=== PATIENT | male | born 1955 | race African-American/Black ===

== ENCOUNTER 2016-08-02 14:46 | Inpatient (IN) ==
[2016-08-02] MEDS ORDERED: 0.9 % Sodium Chloride 1,000 ML IVC ONE ×2 (14:53→17:07)
[2016-08-02 16:18] LABS: Basophils % 0.2 %; Hematocrit 28.5 % (37.5-50.1); Hemoglobin 9.6 g/dL (12.9-16.9); Lymphocytes # 0.7 K/mcL (0.6-4.6); Lymphocytes % 7.4 %; Mean Corpuscular HGB Conc 33.7 g/dL (31.6-35.5); Mean Corpuscular Hemoglobin 28.2 pg (28.0-33.3); Mean Corpuscular Volume 83.6 fL (83.0-100.0); Mean Platelet Volume 9.2 fL (9.4-12.4); Monocytes # 0.9 K/mcL (0.0-1.3); Monocytes % 10.3 %; Neutrophils # 7.3 K/mcL (1.6-8.9); Platelet Count 192 K/mcL (140-400); Red Blood Count 3.41 M/mcL (4.19-5.50); Red Cell Distribution Width 11.9 % (11.5-14.5); Segmented Neutrophils % 81.1 %
[2016-08-02 16:25] LABS: INR 1.2; Prothrombin Time 13.5 Seconds (9.4-12.1)
[2016-08-02 16:27] LABS: Activated Partial Thrombo Time 27.7 Seconds (26.0-36.0)
[2016-08-02 16:31] LABS: Alanine Aminotransferase 34 Units/L (0-55); Albumin 2.9 g/dL (3.5-5.0); Albumin/Globulin Ratio 0.6 (1.1-2.2); Alkaline Phosphatase 69 Units/L (38-126); Aspartate Amino Transferase 50 Units/L (5-34); BUN/Creatinine Ratio 25 (6-26); Bilirubin,Direct 0.8 mg/dL (0.0-0.5); Bilirubin,Indirect 0.5 mg/dL (0.0-1.2); Bilirubin,Total 1.3 mg/dL (0.2-1.2); Blood Urea Nitrogen 32 mg/dL (8-26); Calcium 8.9 mg/dL (8.6-10.8); Carbon Dioxide 21 mEq/L (19-29); Chloride 89 mEq/L (98-109); Globulin 4.9 g/dL (2.4-3.5); Glucose 324 mg/dL (70-99); Magnesium 2.1 mg/dL (1.6-2.6); Osmolality,Calculated 279 (280-300); Phosphorous 2.2 mg/dL (2.3-4.7); Potassium 3.7 mEq/L (3.5-4.5); Sodium 125 mEq/L (136-145); Total Protein 7.8 g/dL (6.0-8.3); eGFR For African Americans > 60 (> 60); eGFR For Non-African Americans 56 (> 60)
[2016-08-02 16:47] LABS: Dohle Bodies Present (Not Present)
[2016-08-02] MEDS ORDERED: Insulin LISPRO 300 UNITS/3 ML VIAL SQ STA (17:05)
--- NOTE | 2016-08-02 17:06 | Emergency Department Note ---
Disposition Clinical Impression: Cellulitis of both feet Syncope Qualifiers: Syncope type: vasovagal syncope Qualified Code(s): R55 - Syncope and collapse Uncontrolled diabetes mellitus Qualifiers: Diabetes mellitus type: other specified (including DORA) Diabetes mellitus complication status: with unspecified complications Diabetes mellitus fdc insulin use: unspecified rat exterminator insulin use status Qualified Code(s): E13.8 - Other specified diabetes mellitus with unspecified complications Disposition: Admitted As Inpatient Referrals: NO,PCP [Primary Care Provider] - Forms: ED Satisfaction Letter Syncope HPI - General Chief Complaint: ED Syncope Stated Complaint: syncope Time Seen by Provider: 08/02/16 14:52 Source: EMS Limitations: physical limitation Nursing Notes Reviewed: Yes Vital Signs Reviewed: Yes - History of Present Illness HPI Narrative: Patient is a 60-year-old male who is currently homeless was found on the neighbor's porch unconscious. The squad came to appear to be sleeping very disheveled when he comes in here today he states he is hungry but no real acute complaints. Witnessed: no History: seizure disorder Treatments prior to arrival: none Associated trauma secondary to event: No - Related Data Home Medications Medication Instructions Recorded Confirmed No Known Home Drugs 08/02/16 08/02/16 Allergies Allergy/AdvReac Type Severity Reaction Status Date / Time No Known Allergies Allergy Verified 08/02/16 14:50 All systems ED: reviewed and negative except as stated. Constitutional: Reports: weakness. Denies: fever, chills Gastrointestinal: Denies: abdominal pain, nausea, vomiting Past Medical History - Past Medical History Source: patient, old records reviewed, nursing notes reviewed Medical history: Reports: arthritis, diabetes, GERD, hepatitis, osteoporosis, seizures, syncope, other Surgical history: Reports: no surgical history, other Psychiatric history: Reports: anxiety, depression - Social History Smoking Status: Current every day smoker Smokeless Tobacco Status: No Alcohol use: Reports: heavy, recent Drug use: Reports: cocaine, marijuana Physical Exam - General Limitations: physical limitation General appearance: alert, in no apparent distress - Head Head exam: atraumatic, normocephalic, normal inspection - Eye Eye exam: Present: normal appearance, PERRL, EOMI - ENT ENT exam: normal exam, normal oropharynx, mucous membranes moist - Neck Neck exam: Present: normal inspection, full ROM, trachea midline - Chest Chest inspection: Present: normal inspection, symmetric chest wall rise - Cardiovascular Cardiovascular exam: Present: regular rate, normal rhythm, normal heart sounds - Abdominal Exam Abdominal exam: Present: soft, Non-Tender. Absent: tenderness, distention, guarding, rebound, rigidity - Expanded Lower Extremity Exam Foot/toe exam: Present: other (Has sloughing of the skin bilaterally feet with maggots his socks had to be soaked and removed and some warmth of his lower tib- fib) Neurovascular/Tendon exam: Present: normal capillary refill - Neurological Exam Neurological exam: Present: alert, oriented X3 - Psychiatric Psychiatric exam: Present: normal affect, normal mood Course Vital Signs Temperature 99.2 F 08/02/16 14:53 Pulse Rate 92 08/02/16 14:53 Respiratory Rate 17 08/02/16 14:53 Blood Pressure 108/80 08/02/16 14:53 O2 Sat by Pulse Oximetry 99 08/02/16 14:53 Temperature 99.2 F 08/02/16 14:53 Pulse Rate 93 08/02/16 17:52 Respiratory Rate 17 08/02/16 17:22 Blood Pressure 98/68 08/02/16 17:52 O2 Sat by Pulse Oximetry 98 08/02/16 17:52 Oxygen Delivery Oxygen Delivery Room Air Syncope - MDM Narrative Medical decision making narrative: transportation worker was involved patient was showered his feet were soaked bilateral lower extremity wounds were bandaged patient agrees to usp placement after hospital admission - Differential Diagnosis Likely: syncope due to orthostatic hypotension, vasovagal syncope, complete atrioventricular block, pulmonary embolism - Medical Records Medical records reviewed: Yes I reviewed the patient's medical records. - Lab Data Lab results reviewed: Yes I reviewed the patient's lab results. Result diagrams: 08/02/16 16:14 08/02/16 16:14 Lab Results 08/02/16 08/02/16 08/02/16 Range/Units 16:14 16:14 16:14 WBC 9.0 (4.3-11.1) K/mcL RBC 3.41 L (4.19-5.50) M/mcL Hgb 9.6 L (12.9-16.9) g/dL Hct 28.5 L (37.5-50.1) % MCV 83.6 (83.0-100.0) fL MCH 28.2 (28.0-33.3) pg MCHC 33.7 (31.6-35.5) g/dL RDW 11.9 (11.5-14.5) % Plt Count 192 (140-400) K/mcL MPV 9.2 L (9.4-12.4) fL Immature Gran % 1.0 (0-4) % Seg Neutrophils % 81.1 % Lymphocytes % 7.4 % Monocytes % 10.3 % Eosinophils % 0.0 % Basophils % 0.2 % Neutrophils # 7.3 (1.6-8.9) K/mcL Lymphocytes # 0.7 (0.6-4.6) K/mcL Monocytes # 0.9 (0.0-1.3) K/mcL Eosinophils # 0.0 (0.0-0.6) K/mcL Basophils # 0.0 (0.0-0.2) K/mcL Dohle Bodies Present A (Not Present) PT 13.5 H (9.4-12.1) Seconds INR 1.2 APTT 27.7 (26.0-36.0) Seconds Sodium 125 L (136-145) mEq/L Potassium 3.7 (3.5-4.5) mEq/L Chloride 89 L (98-109) mEq/L Carbon Dioxide 21 (19-29) mEq/L BUN 32 H (8-26) mg/dL Creatinine 1.30 H (0.72-1.25) mg/dL Est GFR ( Amer) > 60 (> 60) Est GFR (Non-Af Amer) 56 L (> 60) BUN/Creatinine Ratio 25 (6-26) Glucose 324 H (70-99) mg/dL Est Mean Plasma Glucose mg/dl Hemoglobin A1c ( - 5.6) % Calculated Osmolality 279 L (280-300) Lactic Acid (0.5-2.2) mmol/L Calcium 8.9 (8.6-10.8) mg/dL Phosphorus 2.2 L (2.3-4.7) mg/dL Magnesium 2.1 (1.6-2.6) mg/dL Total Bilirubin 1.3 H (0.2-1.2) mg/dL Direct Bilirubin 0.8 H (0.0-0.5) mg/dL Indirect Bilirubin 0.5 (0.0-1.2) mg/dL AST 50 H (5-34) Units/L ALT 34 (0-55) Units/L Alkaline Phosphatase 69 (38-126) Units/L Troponin I (0-0.03) ng/mL Serum Total Protein 7.8 (6.0-8.3) g/dL Albumin 2.9 L (3.5-5.0) g/dL Globulin 4.9 H (2.4-3.5) g/dL Albumin/Globulin Ratio 0.6 L (1.1-2.2) Ethyl Alcohol (0-10) mg/dL 08/02/16 08/02/16 08/02/16 Range/Units 16:14 16:14 16:14 WBC (4.3-11.1) K/mcL RBC (4.19-5.50) M/mcL Hgb (12.9-16.9) g/dL Hct (37.5-50.1) % MCV (83.0-100.0) fL MCH (28.0-33.3) pg MCHC (31.6-35.5) g/dL RDW (11.5-14.5) % Plt Count (140-400) K/mcL MPV (9.4-12.4) fL Immature Gran % (0-4) % Seg Neutrophils % % Lymphocytes % % Monocytes % % Eosinophils % % Basophils % % Neutrophils # (1.6-8.9) K/mcL Lymphocytes # (0.6-4.6) K/mcL Monocytes # (0.0-1.3) K/mcL Eosinophils # (0.0-0.6) K/mcL Basophils # (0.0-0.2) K/mcL Dohle Bodies (Not Present) PT (9.4-12.1) Seconds INR APTT (26.0-36.0) Seconds Sodium (136-145) mEq/L Potassium (3.5-4.5) mEq/L Chloride (98-109) mEq/L Carbon Dioxide (19-29) mEq/L BUN (8-26) mg/dL Creatinine (0.72-1.25) mg/dL Est GFR ( Amer) (> 60) Est GFR (Non-Af Amer) (> 60) BUN/Creatinine Ratio (6-26) Glucose (70-99) mg/dL Est Mean Plasma Glucose mg/dl Hemoglobin A1c ( - 5.6) % Calculated Osmolality (280-300) Lactic Acid 1.1 (0.5-2.2) mmol/L Calcium (8.6-10.8) mg/dL Phosphorus (2.3-4.7) mg/dL Magnesium (1.6-2.6) mg/dL Total Bilirubin (0.2-1.2) mg/dL Direct Bilirubin (0.0-0.5) mg/dL Indirect Bilirubin (0.0-1.2) mg/dL AST (5-34) Units/L ALT (0-55) Units/L Alkaline Phosphatase (38-126) Units/L Troponin I 0.00 (0-0.03) ng/mL Serum Total Protein (6.0-8.3) g/dL Albumin (3.5-5.0) g/dL Globulin (2.4-3.5) g/dL Albumin/Globulin Ratio (1.1-2.2) Ethyl Alcohol < 10 (0-10) mg/dL 08/02/16 Range/Units 16:14 WBC (4.3-11.1) K/mcL RBC (4.19-5.50) M/mcL Hgb (12.9-16.9) g/dL Hct (37.5-50.1) % MCV (83.0-100.0) fL MCH (28.0-33.3) pg MCHC (31.6-35.5) g/dL RDW (11.5-14.5) % Plt Count (140-400) K/mcL MPV (9.4-12.4) fL Immature Gran % (0-4) % Seg Neutrophils % % Lymphocytes % % Monocytes % % Eosinophils % % Basophils % % Neutrophils # (1.6-8.9) K/mcL Lymphocytes # (0.6-4.6) K/mcL Monocytes # (0.0-1.3) K/mcL Eosinophils # (0.0-0.6) K/mcL Basophils # (0.0-0.2) K/mcL Dohle Bodies (Not Present) PT (9.4-12.1) Seconds INR APTT (26.0-36.0) Seconds Sodium (136-145) mEq/L Potassium (3.5-4.5) mEq/L Chloride (98-109) mEq/L Carbon Dioxide (19-29) mEq/L BUN (8-26) mg/dL Creatinine (0.72-1.25) mg/dL Est GFR ( Amer) (> 60) Est GFR (Non-Af Amer) (> 60) BUN/Creatinine Ratio (6-26) Glucose (70-99) mg/dL Est Mean Plasma Glucose > 355 mg/dl Hemoglobin A1c >= 14.1 H ( - 5.6) % Calculated Osmolality (280-300) Lactic Acid (0.5-2.2) mmol/L Calcium (8.6-10.8) mg/dL Phosphorus (2.3-4.7) mg/dL Magnesium (1.6-2.6) mg/dL Total Bilirubin (0.2-1.2) mg/dL Direct Bilirubin (0.0-0.5) mg/dL Indirect Bilirubin (0.0-1.2) mg/dL AST (5-34) Units/L ALT (0-55) Units/L Alkaline Phosphatase (38-126) Units/L Troponin I (0-0.03) ng/mL Serum Total Protein (6.0-8.3) g/dL Albumin (3.5-5.0) g/dL Globulin (2.4-3.5) g/dL Albumin/Globulin Ratio (1.1-2.2) Ethyl Alcohol (0-10) mg/dL - Radiology Data Radiology results reviewed: Yes I reviewed the patient's radiology results.
[2016-08-02 17:09] LABS: Estimated Average Glucose > 355 mg/dl; Hemoglobin A1C >= 14.1 %
[2016-08-02] MEDS ORDERED: Clindamycin 600 MG/50 ML 600 MG/50 ML IV.SOLN IVPB STA (17:34)
[2016-08-02 19:15] LABS: Bilirubin,Urine Small (Negative); Blood,Urine Negative (Negative); Clarity,Urine Cloudy (Clear); Color,Urine Yellow (Yellow); Glucose,Urine (UA) >=1000 mg/dL (Normal); Ketones,Urine 15 mg/dL (Negative); Leukocyte Esterase,Urine Negative (Negative); Nitrite,Urine Negative (Negative); Protein,Urine 30 mg/dL (Neg-Trace); Specific Gravity,Urine 1.028 (1.010-1.025); Urobilinogen,Urine Normal (Normal)
[2016-08-02 19:17] LABS: Bacteria,Urine Few per hpf (None-Few); Hyaline Casts,Urine None Seen per lpf (None-Few); RBC,Urine 0-3 per hpf (0-3); Squamous Epithelial Cell,Urine Many per lpf (None-Few); WBC,Urine 0-3 per hpf (0-3)
[2016-08-02 19:23] LABS: Amphetamine Screen,Urine Negative ng/mL (Cutoff=1000); Barbiturate Screen,Urine Negative ng/mL (Cutoff=200); Benzodiazepines Screen,Urine Negative ng/mL (Cutoff=200); Cannabinoid Screen,Urine Positive ng/mL (Cutoff = 50); Cocaine Screen,Urine Positive ng/mL (Cutoff= 300); Opiate Screen,Urine Negative ng/mL (Cutoff=300); Phencyclidine Screen,Urine Negative ng/mL (Cutoff=25)
[2016-08-02] MEDS ORDERED: Naloxone 0.4 MG/ML INJ IVP PRN (20:55)
[2016-08-02] MEDS ORDERED: Ondansetron 4 MG/2 ML VIAL IVP PRN (20:55)
[2016-08-02] MEDS ORDERED: *HR* LORazepam 2 MG/ML VIAL IVP PRN (21:02)
[2016-08-02] MEDS ORDERED: D5% in Water 1,000 ML IVC PRN (21:03)
[2016-08-02] MEDS ORDERED: *HR* Dextrose 50 % in Water (Syg) 50 ML SYRINGE IVP PRN (21:03)
[2016-08-02] MEDS ORDERED: Dextrose Gel 15 GM PO PRN ×2 (21:03)
--- NOTE | 2016-08-02 21:08 | Internal Med History&Physical ---
Date of Encounter: 08/02/16 Time of Encounter: 20:30 Assessment and Plan (1) Cellulitis of both feet Current visit: Yes Status: Acute Patient does have skin sloughing with mild surrounding cellulitis B/L feet. He has h/o- MRSA in urine, blood last year; will start IV Doxycycline; received Clindamycin in ER, he may be at risk for c.diff infection due to malnutrition, chronic diarrhea. F/up blood cultures. Local wound care with Adaptic and Kerlix covering for now; wound care consult. (2) Fever Current visit: Yes Status: Acute could be due to underlying cellulitis. Does not have any symptoms or signs of alcohol withdrawal. UA not suggestive of UTI. Will get chest XRay to r/o aspiration Pneumonia due to h/o- alcoholism. F/up blood cultures, continue IV hydration, antibiotics. Lactic acid WNL. Tylenol PRN. Supportive care. Qualifiers: Fever type: unspecified Qualified Code(s): R50.9 - Fever, unspecified (3) APRIL (acute kidney injury) Current visit: Yes Status: Acute likely dehydration due to malnutrition and poor brendon intake; continue IV hydration and monitor serum creatinine closely; avoid nephrotoxic agents. (4) Hypophosphatemia Current visit: Yes Status: Acute due to alcohol abuse. Supplement with iV POtassium phosphate and monitor; (5) Hyponatremia Current visit: Yes Status: Acute likely hypovolemic due to dehydration and alcohol abuse. IV hydration with NS and monitor serum sodium and urine output closely. Check TSH; (6) Uncontrolled diabetes mellitus Current visit: Yes Status: Chronic Uncontrolled due to medical noncompliance. HbA1C noted to be >14.1%. Start Accucheck blood glucose monitoring with basal bolus insulin regimen. Diabetic diet. Qualifiers: Diabetes mellitus type: type 2 Diabetes mellitus complication status: with hyperglycemia Diabetes mellitus senior living insulin use: without oil heaterman use Qualified Code(s): E11.65 - Type 2 diabetes mellitus with hyperglycemia (7) Malnutrition Current visit: Yes Status: Chronic due to uncontrolled DM, homelessness, alcohol abuse. Ensure supplements. Nutrition consult. (8) Alcoholism /alcohol abuse Current visit: Yes Status: Chronic not in withdrawal at this time. CIWA protocol with PRN IV Ativan. Thiamine and Folate supplements. student services advisor has been consulted for safe discharge and possible placement; PT consult. (9) Polysubstance abuse Current visit: Yes Status: Chronic Urine drug screen positive for cocaine and Marijuana; supportive care. student services advisor consult. (10) Tobacco abuse Current visit: Yes Status: Chronic patient not interested in smoking cessation at this time; refuses Nicotine transdermal patch. (11) Hepatitis C Current visit: Yes Status: Chronic Qualifiers: Viral hepatitis chronicity: chronic Hepatic coma status: without hepatic coma Qualified Code(s): B18.2 - Chronic viral hepatitis C Internal Medicine - H&P: HPI Chief complaint: wounds on both feet, homeless Admitted From: Emergency Dept Plans for Post Hospital Care: Transfer Senior Care Care History of present illness: Mr. Proctor is a 60 year old male with h/o- uncontrolled DM, chronic alcohol, substance abuse, homeless, was brought in by EMS after having been found unconscious on neighbour's porch. Patient was alert and oriented in the ER, reported hunger and no other complaints. He was noted to be very disheveled and unkempt with socks matted to his feet, with maggots and received shower and clean up of his feet wounds. He reports no chest pain, shortness of breath, nausea or vomiting. He does report chronic lower abdominal pain and loose watery nonbloody diarrhea on ROS. He also has numbness in both his feet due to diabetic neuropathy. His last drink of alcohol and last use of Marijuana and Cocaine was yesterday. He is homeless, cannot afford any of his meds including insulin, does not have medical followup. He is agreeable to oil heaterman care placement at this time. Past Med Surg Social Fam HX - Past Medical History Medical history: arthritis, diabetes, GERD, hepatitis, osteoporosis, seizures, syncope, other Psychiatric history: anxiety, depression - Past Surgical History Surgical History: cholecystectomy - Social History Smoking Status: Current every day smoker Packs per day: 0.5 Smokeless Tobacco Status: No Alcohol use: heavy, recent Drug use: cocaine, marijuana Occupational status: unemployed Current living situation: Homeless Activity Level: Independent ambulation Recent Out of Country Travel Within the Last 8 Weeks: No - Family History Mother History Unknown: Yes Adopted: (poor historian) Internal Medicine - H&P: Meds No Known Home Drugs 08/02/16 [History] Allergies No Known Allergies Allergy (Verified 08/02/16 14:50) All Systems PM: A 10-system review of systems was performed and is negative for pertinent findings except as documented above in the HPI. - Constitutional Constitutional: chills, fever(s) - EENT Eyes: no change in vision, no discharge, no pain, no photophobia Ears: no ear discharge, no ear pain, no tinnitus Nose, mouth and throat: no dysphagia, no nasal discharge, no neck pain, no sore throat - Cardiovascular Cardiovascular ROS IM: no chest pain, no diaphoresis, no dyspnea, no lightheadedness, no palpitations, no syncope - Respiratory Respiratory: no cough, no dyspnea, no wheezing, no excessive phlegm production - Gastrointestinal Gastrointestinal: abdominal pain, diarrhea, loose stools - Musculoskeletal Musculoskeletal ROS IM: back pain, no numbness, no tingling - Integumentary Integumentary IM: sores, no rash, no unusual bruising - Neurological Neurological ROS: numbness - Hematologic/Lymphatic Hematologic/Lymphatic: no easy bruising - Constitutional Vitals: Temp Pulse Resp BP Pulse Ox 99.2 F 93 16 98/68 98 08/02/16 14:53 08/02/16 17:52 08/02/16 19:19 08/02/16 19:19 08/02/16 17:52 General appearance: Present: cachectic, A&O X 3, answers questions appropriately - Head Head exam: Present: atraumatic, normocephalic - Neck Neck exam general surgery: Present: supple, trachea midline. Absent: lymphadenopathy - Respiratory Respiratory exam: Present: CTAB. Absent: accessory muscle use, rales, rhonchi, wheezes - Cardiovascular Cardiovascular exam: Present: RRR, +S1, +S2. Absent: diastolic murmur, gallop, rubs, systolic murmur - GI/Abdominal GI/Abdominal exam: Present: normal bowel sounds, soft, no peritoneal signs. Absent: distended, tenderness - Extremities Exam Extremities exam: Present: full ROM, warm, radial pulses palpable and symetrical. Absent: calf tenderness, cyanotic, pedal edema Additional comments: B/L feet with sloughed off skin, slightly foul-smelling, with areas of yellowish exudate; no purulent discharge or deep ulcers; surrounding mild erythema - Neurological Exam Neurological exam: Present: CN II-XII intact, oriented X3, no focal deficits. Absent: pronater drift, facial droop, speech deficit - Skin Skin exam: Present: dry, intact Internal Med - H&P Results - Labs CBC & Chem 7: 08/02/16 16:14 08/02/16 16:14 Labs: Urine 08/02/16 Range/Units 19:05 Urine Color Yellow (Yellow) Urine Clarity Cloudy A (Clear) Urine pH 6.0 (5.0-8.0) pH Units Ur Specific [place] 1.028 H (1.010-1.025) Urine Protein 30 H (Neg-Trace) mg/dL Urine Glucose (UA) >=1000 H (Normal) mg/dL - EKG Data -: EKG Interpreted by Myself EKG shows normal: sinus rhythm Rate: normal
[2016-08-02] MEDS ORDERED: Potassium Phosphate 44 MEQ in 0.9 % Sodium Chloride 250 ML IVPB ONE (22:00)
[2016-08-02] MEDS: 0.9 % Sodium Chloride 1,000 ML IVC SCH (22:36)
[2016-08-02] MEDS: Acetaminophen 325 MG TABLET PO PRN (22:45)
[2016-08-02] MEDS: Insulin DETEMIR 100 UNIT/ML X5UNITS SQ SCH (22:45)
[2016-08-02] MEDS: Insulin LISPRO 300 UNITS/3 ML VIAL SQ SCH (22:54)
[2016-08-03 03:52] LABS: Basophils % 0.1 %; Eosinophils % 0.1 %; Hematocrit 25.5 % (37.5-50.1); Hemoglobin 8.4 g/dL (12.9-16.9); Immature Granulocytes % 0.8 % (0-4); Lymphocytes # 0.9 K/mcL (0.6-4.6); Mean Corpuscular HGB Conc 32.9 g/dL (31.6-35.5); Mean Corpuscular Hemoglobin 27.6 pg (28.0-33.3); Mean Corpuscular Volume 83.9 fL (83.0-100.0); Mean Platelet Volume 9.6 fL (9.4-12.4); Monocytes % 9.8 %; Neutrophils # 8.2 K/mcL (1.6-8.9); Platelet Count 190 K/mcL (140-400); Red Blood Count 3.04 M/mcL (4.19-5.50); Red Cell Distribution Width 11.9 % (11.5-14.5); Segmented Neutrophils % 80.2 %
[2016-08-03 04:07] LABS: BUN/Creatinine Ratio 21 (6-26); Blood Urea Nitrogen 25 mg/dL (8-26); Calcium 7.9 mg/dL (8.6-10.8); Carbon Dioxide 19 mEq/L (19-29); Chloride 102 mEq/L (98-109); Chol/HDL Ratio 4.3 (0-4.9); Cholesterol 120 mg/dL (< 200); Glucose 397 mg/dL (70-99); HDL Cholesterol 28 mg/dL (40-59); LDL Cholesterol,Calculated 71 mg/dL (0-99); Magnesium 1.9 mg/dL (1.6-2.6); Osmolality,Calculated 293 (280-300); Phosphorous 3.3 mg/dL (2.3-4.7); Potassium 3.5 mEq/L (3.5-4.5); Sodium 131 mEq/L (136-145); Triglycerides 106 mg/dL (< 150); eGFR For African Americans > 60 (> 60); eGFR For Non-African Americans > 60 (> 60)
[2016-08-03 04:36] LABS: Dohle Bodies Present (Not Present); Platelet Estimate Normal (Normal)
[2016-08-03] MEDS: *HR* Heparin 5,000 UNIT/ML VIAL SQ SCH ×2 (05:56→17:09)
[2016-08-03] MEDS ORDERED: Doxycycline 100 MG in 0.9 % Sodium Chloride Mini Bag 100 ML IVPB SCH (06:00)
[2016-08-03] MEDS: Acetaminophen 325 MG TABLET PO PRN ×3 (06:01→23:36)
[2016-08-03 07:23] LABS: Adenovirus F 40/41 PCR Not detected (Not detect); Astrovirus PCR Not detected (Not detect); C.difficile Toxin A/B by PCR Not detected (Not detect); Campylobacter by PCR Not detected (Not detect); Cryptosporidium by PCR Not detected (Not detect); Cyclospora cayetanensis PCR Not detected (Not detect); E. coli O157 by PCR Not detected (Not detect); Entamoeba histolytica PCR Not detected (Not detect); Enteroaggregative E.coli(EAEC) Not detected (Not detect); Enteropathogenic E.coli(EPEC) Not detected (Not detect); Enterotoxigenic E.coli (ETEC) Not detected (Not detect); Giardia lamblia PCR Not detected (Not detect); Norovirus GI/GII PCR Not detected (Not detect); Plesiomonas shigelloides PCR Not detected (Not detect); Rotavirus A PCR Not detected (Not detect); Salmonella PCR Not detected (Not detect); Sapovirus PCR Not detected (Not detect); Shig/EnteroinvasiveE coli EIEC Not detected (Not detect); Shigalike tox-prod E coli STEC Not detected (Not detect); Vibrio PCR Not detected (Not detect); Vibrio cholerae PCR Not detected (Not detect); Yersinia enterocolitica PCR Not detected (Not detect)
[2016-08-03] MEDS ORDERED: *HR* LORazepam 2 MG/ML VIAL IVP PRN ×2 (07:56)
[2016-08-03] MEDS: Thiamine (B-1) 100 MG TABLET PO SCH (08:14)
[2016-08-03] MEDS: Insulin LISPRO 300 UNITS/3 ML VIAL SQ SCH ×4 (08:14→21:40)
[2016-08-03] MEDS: Folic Acid 1 MG TABLET PO SCH (08:14)
[2016-08-03] MEDS: Insulin DETEMIR 100 UNIT/ML X5UNITS SQ SCH ×2 (08:14→21:40)
[2016-08-03] MEDS: 0.9 % Sodium Chloride 1,000 ML IVC SCH ×2 (08:15→21:42)
[2016-08-03] MEDS ORDERED: Insulin Human Regular 5 UNIT in 0.9 % Sodium Chloride 10 ML IV ONE (09:26)
[2016-08-03 11:04] LABS: Acinetobacter baumannii by PCR Not Detected (Not Detect); Candida albicans by PCR Not Detected (Not Detect); Candida glabrata by PCR Not Detected (Not Detect); Candida krusei by PCR Not Detected (Not Detect); Candida parapsilosis by PCR Not Detected (Not Detect); Candida tropicalis by PCR Not Detected (Not Detect); Enterococcus by PCR Not Detected (Not Detect); Escherichia coli by PCR Not Detected (Not Detect); Klebsiella oxytoca by PCR Not Detected (Not Detect); Klebsiella pneumoniae by PCR Not Detected (Not Detect); Pseudomonas aeruginosa by PCR Not Detected (Not Detect); Serratia marcescens by PCR Not Detected (Not Detect); Staphylococcus aureus by PCR Not Detected (Not Detect); Streptococcus agalactiae(B)PCR Not Detected (Not Detect); Streptococcus by PCR Not Detected (Not Detect); Streptococcus pneumoniae PCR Not Detected (Not Detect); Streptococcus pyogenes (A) PCR Not Detected (Not Detect); blaKPC Carbapenem-Resist Gene Not Detected (Not Detect); mecA Methicillin-Resist Gene Not Detected (Not Detect); vanA/B Vancomycin-Resist Genes Not Detected (Not Detect)
[2016-08-03] MEDS ORDERED: Vancomycin 750 MG in D5% in Water 250 ML IVPB SCH (12:00)
[2016-08-03] MEDS: Vancomycin 750 MG in D5% in Water 250 ML IVPB SCH (12:14)
--- NOTE | 2016-08-03 15:34 | Internal Med Progress Note ---
Date of Encounter: 08/03/16 Time of Encounter: 11:30 - Assessment and plan (1) Bacteremia Current Visit: Yes Status: Acute Assessment and plan: Gram positive cocci isolated in the blood culture. A second set of blood cultures have been requested, additionally I started the patient on empiric IV vancomycin and up requested an echocardiogram to look for any possible vegetations. We will request ESR and CRP. The patient does not look septic however. We will continue with IV vancomycin at this point, monitor kidney function tests. High risk medication, we need to monitor vancomycin levels accordingly. (2) Peripheral vascular disease Current Visit: Yes Status: Acute Assessment and plan: We will obtain a carotid duplex of lower extremities. The patient has evidence of ulcers in both feet. He also has a history of uncontrolled diabetes and is a long-standing smoker. We will continue monitoring closely. We will give by mouth aspirin and had statins. (3) Alcoholism /alcohol abuse Current Visit: Yes Status: Chronic Assessment and plan: Continue with CIWA protocol. Monitor the patient closely. (4) Hyponatremia Current Visit: No Status: Acute (5) Dehydration Current Visit: No Status: Acute (6) DVT prophylaxis Current Visit: No Status: Acute Assessment and plan: Continue with heparin. (7) Polysubstance abuse Current Visit: Yes Status: Chronic (8) Homeless Current Visit: No Status: Chronic (9) DVT prophylaxis Current Visit: No Status: Acute (10) Diabetes Current Visit: No Status: Chronic Assessment and plan: continue with insulin hb A1C above 14. Qualifiers: Diabetes mellitus type: type 2 Diabetes mellitus complication status: without complication Diabetes mellitus rodent exterminator insulin use: with rodent exterminator use Qualified Code(s): E11.9 - Type 2 diabetes mellitus without complications ; Z79.4 - shelter (current) use of insulin (11) Cellulitis of both feet Current Visit: Yes Status: Acute Assessment and plan: Switched to vancomycin due to bacteremia. (12) Uncontrolled diabetes mellitus Current Visit: Yes Status: Chronic Qualifiers: Diabetes mellitus type: type 2 Diabetes mellitus complication status: with hyperglycemia Diabetes mellitus rodent exterminator insulin use: without rodent exterminator use Qualified Code(s): E11.65 - Type 2 diabetes mellitus with hyperglycemia (13) Malnutrition Current Visit: Yes Status: Chronic (14) Marijuana abuse Current Visit: No Status: Acute (15) Alcohol abuse Current Visit: No Status: Chronic (16) Weakness generalized Current Visit: No Status: Acute Assessment and plan: PT eval. (17) Hepatitis C Current Visit: Yes Status: Chronic Assessment and plan: outpatient follow up. Qualifiers: Viral hepatitis chronicity: chronic Hepatic coma status: without hepatic coma Qualified Code(s): B18.2 - Chronic viral hepatitis C - Subjective Interval history: The patient was seen and examined in rounds. He was alert, awake, oriented. He did not seem to be in respiratory distress during this encounter. He is taking alert awake came here was because of his left ulcers, he denied chest pain. He is homeless. - Constitutional Vitals: Temp Pulse Resp BP Pulse Ox 98.7 F 87 19 98/67 100 08/03/16 11:34 08/03/16 13:23 08/03/16 13:23 08/03/16 13:23 08/03/16 13:23 General appearance: Present: cachectic, A&O X 3, answers questions appropriately - Head Head exam: Present: atraumatic, normocephalic - Eye Eye exam: Present: PERRL, conjuntiva pink, sclera anicteric Pupils: Present: PERRL - Neck Neck exam general surgery: Present: supple, trachea midline. Absent: lymphadenopathy - Respiratory Respiratory exam: Present: CTAB. Absent: accessory muscle use, rales, rhonchi, wheezes - Cardiovascular Cardiovascular exam: Present: RRR, +S1, +S2. Absent: diastolic murmur, gallop, rubs, systolic murmur - GI/Abdominal GI/Abdominal exam: Present: normal bowel sounds, soft, no peritoneal signs. Absent: distended, tenderness - Extremities Exam Extremities exam: Present: warm, radial pulses palpable and symetrical. Absent : calf tenderness, cyanotic, pedal edema - Neurological Exam Neurological exam: Present: CN II-XII intact, oriented X3, no focal deficits. Absent: pronater drift, facial droop, speech deficit - Skin Skin exam: Present: dry Additional comments: Ulcers in both lower extremities, in the anterior aspect of both feet. Covered with dressing. Internal Medicine: Result - Labs CBC & Chem 7: 08/03/16 03:18 08/03/16 03:18 - ABG Interpretation ABG results: PT/INR, D-dimer PT 13.5 Seconds (9.4-12.1) H 08/02/16 16:14 - Impressions Impressions Chest X-Ray 08/03/16 23:33 IMPRESSION: Negative portable chest. D/ / Darrion Connors MD / Darrion Connors MD Interpreting Provider: Darrion Connors MD Consult Discharge Plan - Plan Referrals: NO,PCP [Primary Care Provider] -
--- NOTE | 2016-08-03 16:00 | Electrocardiograph Report ---
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
--- NOTE | 2016-08-03 16:52 | Podiatry Progress Note ---
Date of Encounter: 08/03/16 Time of Encounter: 16:15 - Assessment and Plan (1) Ulcers of both lower extremities Current Visit: Yes Status: Acute Appears to be fungal and in direct relation to matted, wet socks worn for extended period of time NO appearance of bacterial infection or underlying abscess Pulses are palpable Will need tight glucose control and proper nutrition to aide in proper healing Patient will be going to [facility] where they will be able to manage dressing changes At this time, BID dressing changes with thick application of santyl to all areas of fibrous tissue, wet to dry dressings, and kerlex Patient will need to follow up in wound care 1 week after discharge- will need to be followed closely May continue IV antibiotics but no apparent bacterial process to feet (2) Cellulitis of both feet Current Visit: Yes Status: Acute (3) Uncontrolled diabetes mellitus Current Visit: Yes Status: Chronic Qualifiers: Diabetes mellitus type: type 2 Diabetes mellitus complication status: with hyperglycemia Diabetes mellitus senior care insulin use: without adjunct faculty for medical terminology use Qualified Code(s): E11.65 - Type 2 diabetes mellitus with hyperglycemia Subjective Interval history: Mr. Proctor is a 60 year old male with h/o- uncontrolled DM, chronic alcohol, substance abuse, homeless, was brought in by EMS after having been found unconscious on neighbour's porch. Patient noted to have Ha1c 14.1. Upon entering room patient resting comfortably with dressings intact to both feet. Nurse reports multiple changes of dressings due to clear yellow drainage. Patient reports he is unsure when ulcerations occurred to his feet. Patient is homeless, states he owns one pair of socks and have have them on for a very long time, patient arrived to ED where it was reported they were matted to his feet with maggots. Patient reports no pain at this time. patient denies any calf pain. Patient denies any fevers, chills, n/v or flu like symptoms. Objective - Vital Signs Vital Signs: Vital Signs Temp Pulse Resp BP Pulse Ox 08/03/16 15:59 99.6 F 96 17 95/61 100 08/03/16 13:23 87 19 98/67 100 08/03/16 11:34 98.7 F 87 19 98/67 100 Intake and Output 08/03/16 08/03/16 08/03/16 07:59 15:59 23:59 Intake Total 360 / 1720 Balance 360 / 1720 Intake: Oral 360 / 720 Other: Meal Lunch Percent of Meal Consumed 100% Stool Size Large Stool Consistency soft formed Stool Color Brown Green # Voids 1 # Urine Diapers 1 # Bowel Movement Diapers 1 Weight 57.1 kg Blood Glucose* 209 Patient Weight 08/03/16 23:59 Weight 57.1 kg - Exam Exam: General Examination: CONSTITUTIONAL: Alert, oriented, in no acute distress, non-toxic. EXTREMITIES: CFT 3 seconds all toes. Edema +1 and pedal pulses palpable. SKIN: Skin with decreased turgor, decreased subcutaneous tissue, skin thin and shiny with trophic changes associated with comorbidities as described in history.. malnourished, frail NEUROLOGIC: Intact sensation to light touch superficial partial thickness ulcerated area encompassing entire dorsal aspects of feet bilaterally. right and left foot ulceration extends entire circumference of ankle. Right foot: moderate amount of healthy granulation tissue is present- 50%, dry yellow slough is noted in patches to wound, no loose areas are noted for debridement. Left: Less granulation tissue noted- 30% , majority of wound bed is covered with dry fibrous slough. Mild yellow drainage noted. Granulation tissue friable and bleeds easily. Painful to touch. No odor. No warmth, edema or erythema noted.. - Lab Result Diagrams: 08/03/16 03:18 08/03/16 03:18 Labs: Abnormal lab results RBC 3.04 M/mcL (4.19-5.50) L 08/03/16 03:18 Hgb 8.4 g/dL (12.9-16.9) L 08/03/16 03:18 Hct 25.5 % (37.5-50.1) L 08/03/16 03:18 MCH 27.6 pg (28.0-33.3) L 08/03/16 03:18 Dohle Bodies Present (Not Present) A 08/03/16 03:18 ESR 14 mm/hr (0-10) H 08/02/16 18:43 PT 13.5 Seconds (9.4-12.1) H 08/02/16 16:14 Sodium 131 mEq/L (136-145) L 08/03/16 03:18 Glucose 397 mg/dL (70-99) H 08/03/16 03:18 Hemoglobin A1c >= 14.1 % (-5.6) H 08/02/16 16:14 Calcium 7.9 mg/dL (8.6-10.8) L 08/03/16 03:18 Total Bilirubin 1.3 mg/dL (0.2-1.2) H 08/02/16 16:14 Direct Bilirubin 0.8 mg/dL (0.0-0.5) H 08/02/16 16:14 AST 50 Units/L (5-34) H 08/02/16 16:14 Albumin 2.9 g/dL (3.5-5.0) L 08/02/16 16:14 Globulin 4.9 g/dL (2.4-3.5) H 08/02/16 16:14 Albumin/Globulin Ratio 0.6 (1.1-2.2) L 08/02/16 16:14 HDL Cholesterol 28 mg/dL (40-59) L 08/03/16 03:18 Urine Clarity Cloudy (Clear) A 08/02/16 19:05 Ur Specific Gray 1.028 (1.010-1.025) H 08/02/16 19:05 Urine Protein 30 mg/dL (Neg-Trace) H 08/02/16 19:05 Urine Glucose (UA) >=1000 mg/dL (Normal) H 08/02/16 19:05 Urine Ketones 15 mg/dL (Negative) H 08/02/16 19:05 Urine Bilirubin Small (Negative) H 08/02/16 19:05 Ur Squamous Epith Cells Many per lpf (None-Few) H 08/02/16 19:05 Urine Cocaine Screen Positive ng/mL (Cutoff= 300) H 08/02/16 19:05 U Marijuana (THC) Screen Positive ng/mL (Cutoff = 50) H 08/02/16 19:05 Staphylococcus sp PCR DETECTED (Not Detect) A 08/02/16 16:25 Consult Discharge Plan - Plan Referrals: NO,PCP [Primary Care Provider] -
[2016-08-04 04:13] LABS: Basophils % 0.1 %; Eosinophils # 0.1 K/mcL (0.0-0.6); Eosinophils % 0.9 %; Hemoglobin 7.9 g/dL (12.9-16.9); Immature Granulocytes % 0.8 % (0-4); Lymphocytes # 0.9 K/mcL (0.6-4.6); Lymphocytes % 11.8 %; Mean Corpuscular HGB Conc 32.9 g/dL (31.6-35.5); Mean Corpuscular Hemoglobin 27.9 pg (28.0-33.3); Mean Corpuscular Volume 84.8 fL (83.0-100.0); Mean Platelet Volume 9.8 fL (9.4-12.4); Monocytes # 0.5 K/mcL (0.0-1.3); Neutrophils # 6.1 K/mcL (1.6-8.9); Platelet Count 197 K/mcL (140-400); Red Blood Count 2.83 M/mcL (4.19-5.50); Red Cell Distribution Width 11.9 % (11.5-14.5); Segmented Neutrophils % 79.4 %
[2016-08-04 04:33] LABS: BUN/Creatinine Ratio 16 (6-26); Blood Urea Nitrogen 15 mg/dL (8-26); Calcium 7.7 mg/dL (8.6-10.8); Carbon Dioxide 19 mEq/L (19-29); Chloride 109 mEq/L (98-109); Glucose 222 mg/dL (70-99); Osmolality,Calculated 288 (280-300); Potassium 3.3 mEq/L (3.5-4.5); Sodium 135 mEq/L (136-145); eGFR For African Americans > 60 (> 60); eGFR For Non-African Americans > 60 (> 60)
[2016-08-04 04:49] LABS: C-Reactive Protein 51 mg/L (Less than 5)
[2016-08-04 04:50] LABS: Platelet Estimate Normal (Normal); Toxic Granulation Present (Not Present)
[2016-08-04 04:51] LABS: Dohle Bodies Present (Not Present); Reactive Lymphocytes Present (Not Present)
[2016-08-04] MEDS: *HR* Heparin 5,000 UNIT/ML VIAL SQ SCH ×2 (06:15→17:08)
[2016-08-04] MEDS: Folic Acid 1 MG TABLET PO SCH (08:07)
[2016-08-04] MEDS: Insulin DETEMIR 100 UNIT/ML X5UNITS SQ SCH ×2 (08:07→21:30)
[2016-08-04] MEDS: Vancomycin 750 MG in D5% in Water 250 ML IVPB SCH (08:07)
[2016-08-04] MEDS: Aspirin Enteric Coated 81 MG Tablet PO SCH (08:07)
[2016-08-04] MEDS: Thiamine (B-1) 100 MG TABLET PO SCH (08:07)
[2016-08-04] MEDS: Insulin LISPRO 300 UNITS/3 ML VIAL SQ SCH ×4 (08:08→21:30)
[2016-08-04] MEDS: Acetaminophen 325 MG TABLET PO PRN ×2 (08:12→21:29)
--- NOTE | 2016-08-04 09:39 | ECHO - Doppler Report ---
Echocardiogram Name: Iban Proctor Date of Study: 08/03/2016 Date: 1955 Ht: 75.0 in Medical Record#: [id number] Age: 60 Wt: 125.0 lb Gender: Male BSA: 1.8 Order #: [id number] Location: [facility] Room #: 2A25 Reading Physician: Saleem James MD, [facility] Pump Station Operator: Lorraine Yin T Ordering Physician: Doug Samuel MD Primary Physician: None Indications: bacteremia Impressions: No pulmonary hypertension. LVEF 60-65%. No significant valvular dysfunction. No diagnostic vegetation, JAZ would provide improved diagnostic accuracy Small pericardial effusion without evidence of tamponade. Consider repeat limited echo to assess stability. Left Ventricular Wall Motion: Rest Echo Findings All wall segments showed normal motion. Findings: Study Quality * Technically adequate exam. Mitral Valve * Normal mitral valve structure and function. Interatrial Septum * No evidence of PFO by color Doppler. Right Ventricle * Normal right ventricular structure and function. Left Atrium * Normal left atrial size. Right Atrium * Normal right atrial size. Aorta * Normally sized aortic root. ECG Findings * Normal sinus rhythm. Left Ventricle * Indeterminate diastolic function. * LVEF 60-65%. Aortic Valve * No aortic regurgitation. * No aortic stenosis. * Aortic valve not well visualized. Pericardium * There is a small pericardial effusion present. Tricuspid Valve * Estimated RVSP is 20 mmHg. * Estimated RA pressure is 3-5 mmHg. * No pulmonary hypertension. IVC * Normal IVC dimensions and inspiratory collapse. History Diabetes History of Smoking Years Packs 0.5 5-8-16 a Previous Echo was performed. Measurements: BP: 95/ 61 2D Normal Values RVIDd: 3.30 cm <2.7 cm IVSd: .60 cm 0.6 - 1.0 cm LVIDd: 4.80 cm 3.7 - 5.6 cm LVPWd: .60 cm 0.6 - 1.1 cm LVIDs: 3.20 cm 1.5 - 3.6 cm AO: 3.10 cm < 4.0 cm LA: 3.30 cm 2.0 - 4.0cm %FS: 33.30 cm >25 % LA volume: 50 Mitral Valve Peak E:.73 m/sec Peak A:.60 m/sec E/A Ratio:1.2 Peak E' Lat Moo:10.7 cm/s Peak E' Med Moo:10.3 cm/s E/E' Lat Ratio:6.8 E/E' Med Ratio:7.1 Tricuspid Valve TV Regurg Peak Grad: 20.00mmHg TV Regurg Peak Moo: 2.21m/sec Updated by Saleem James MD, [facility] on 08/04/2016 9:31:07 AM electronically signed on 08/04/2016 9:33:36 AM with status of Final Wall Motion Rivas: 1=Normal, 2=Hypokinesis, 3=Akinesis, 4=Dyskinesis, 5=Aneurysmal, 6=Hyperkinetic, X=Not Visualized (Blank)=Missing
--- NOTE | 2016-08-04 13:30 | Internal Med Progress Note ---
Date of Encounter: 08/04/16 Time of Encounter: 11:00 - Assessment and plan (1) Bacteremia Current Visit: Yes Status: Acute Assessment and plan: Gram positive cocci isolated in the blood culture. A second set of blood cultures have been requested, additionally I started the patient on empiric IV vancomycin and up requested an echocardiogram to look for any possible vegetations. TTE did nt reveal vegetations. ESR above 100. The patient does not look septic however. We will continue with IV vancomycin at this point, monitor kidney function tests. High risk medication, we need to monitor vancomycin levels accordingly. (2) Peripheral vascular disease Current Visit: Yes Status: Acute Assessment and plan: We will obtain an arterial duplex of lower extremities. The patient has evidence of ulcers in both feet. He also has a history of uncontrolled diabetes and is a long-standing smoker. We will continue monitoring closely. We will give by mouth aspirin and had statins. (3) Alcoholism /alcohol abuse Current Visit: Yes Status: Chronic Assessment and plan: Continue with CIWA protocol. Monitor the patient closely. (4) Hyponatremia Current Visit: No Status: Acute (5) Dehydration Current Visit: No Status: Acute (6) DVT prophylaxis Current Visit: No Status: Acute Assessment and plan: Continue with heparin. (7) Polysubstance abuse Current Visit: Yes Status: Chronic (8) Homeless Current Visit: No Status: Chronic (9) DVT prophylaxis Current Visit: No Status: Acute (10) Diabetes Current Visit: No Status: Chronic Assessment and plan: continue with insulin, increased levemir to 14 daily hb A1C above 14. Qualifiers: Diabetes mellitus type: type 2 Diabetes mellitus complication status: without complication Diabetes mellitus intermediate frame tender insulin use: with intermediate frame tender use Qualified Code(s): E11.9 - Type 2 diabetes mellitus without complications ; Z79.4 - nursing home (current) use of insulin (11) Cellulitis of both feet Current Visit: Yes Status: Acute (12) Uncontrolled diabetes mellitus Current Visit: Yes Status: Chronic Qualifiers: Diabetes mellitus type: type 2 Diabetes mellitus complication status: with hyperglycemia Diabetes mellitus intermediate frame tender insulin use: without mcc use Qualified Code(s): E11.65 - Type 2 diabetes mellitus with hyperglycemia (13) Malnutrition Current Visit: Yes Status: Chronic (14) Marijuana abuse Current Visit: No Status: Acute (15) Alcohol abuse Current Visit: No Status: Chronic (16) Weakness generalized Current Visit: No Status: Acute (17) Hepatitis C Current Visit: Yes Status: Chronic Qualifiers: Viral hepatitis chronicity: chronic Hepatic coma status: without hepatic coma Qualified Code(s): B18.2 - Chronic viral hepatitis C - Subjective Interval history: The patient was seen and examined in rounds. He was alert, awake, oriented. He did not seem to be in respiratory distress during this encounter. - Constitutional Vitals: Temp Pulse Resp BP Pulse Ox 99.6 F 88 18 119/75 100 08/04/16 07:58 08/04/16 07:58 08/04/16 07:58 08/04/16 07:58 08/04/16 07:58 General appearance: Present: cachectic, A&O X 3, pleasant, underweight, answers questions appropriately - Head Head exam: Present: atraumatic, normocephalic - Eye Eye exam: Present: PERRL, conjuntiva pink, sclera anicteric Pupils: Present: PERRL - Neck Neck exam general surgery: Present: supple, trachea midline. Absent: lymphadenopathy - Respiratory Respiratory exam: Present: CTAB. Absent: accessory muscle use, rales, rhonchi, wheezes - Cardiovascular Cardiovascular exam: Present: RRR, +S1, +S2. Absent: diastolic murmur, gallop, rubs, systolic murmur - GI/Abdominal GI/Abdominal exam: Present: normal bowel sounds, soft, no peritoneal signs. Absent: distended, tenderness - Extremities Exam Extremities exam: Present: warm, radial pulses palpable and symetrical. Absent : calf tenderness, cyanotic, pedal edema Additional comments: ulcer on both feet and ankles. - Neurological Exam Neurological exam: Present: CN II-XII intact, oriented X3, no focal deficits. Absent: pronater drift, facial droop, speech deficit - Skin Skin exam: Present: dry, intact Internal Medicine: Result - Labs CBC & Chem 7: 08/04/16 03:15 08/04/16 03:15 Labs: Short CBC 08/04/16 Range/Units 03:15 WBC 7.7 (4.3-11.1) K/mcL Hgb 7.9 L (12.9-16.9) g/dL Hct 24.0 L (37.5-50.1) % Plt Count 197 (140-400) K/mcL Neutrophils # 6.1 (1.6-8.9) K/mcL BMP 08/04/16 03:15 Sodium 135 L Potassium 3.3 L Chloride 109 Carbon Dioxide 19 BUN 15 D Creatinine 0.95 Glucose 222 H Calcium 7.7 L - ABG Interpretation ABG results: PT/INR, D-dimer PT 13.5 Seconds (9.4-12.1) H 08/02/16 16:14 - Impressions Impressions Foot MRI 08/04/16 09:03 IMPRESSION: No evidence of osteomyelitis. No abscess or definite ulcer identified. Severe hallux valgus. D/ / 08/04/2016 12:19:28 Martin Seaman MD / rosa Interpreting Provider: Martin Seaman MD Foot MRI 08/04/16 09:03 IMPRESSION: 1. No evidence of acute osteomyelitis or infection in the right foot. No abscess identified. 2. Mild 2nd tarsometatarsal joint degenerative changes. D/ / 08/04/2016 12:13:19 Martin Seaman MD / rosa Interpreting Provider: Martin Seaman MD Consult Discharge Plan - Plan Referrals: NO,PCP [Primary Care Provider] -
[2016-08-05] MEDS: Acetaminophen 325 MG TABLET PO PRN (06:19)
[2016-08-05] MEDS: *HR* Heparin 5,000 UNIT/ML VIAL SQ SCH ×2 (06:20→17:37)
[2016-08-05 06:31] LABS: Basophils % 0.3 %; Eosinophils # 0.1 K/mcL (0.0-0.6); Hematocrit 23.9 % (37.5-50.1); Hemoglobin 7.9 g/dL (12.9-16.9); Immature Granulocytes % 1.1 % (0-4); Lymphocytes # 1.3 K/mcL (0.6-4.6); Lymphocytes % 16.7 %; Mean Corpuscular HGB Conc 33.1 g/dL (31.6-35.5); Mean Corpuscular Hemoglobin 27.4 pg (28.0-33.3); Mean Platelet Volume 9.2 fL (9.4-12.4); Monocytes # 0.4 K/mcL (0.0-1.3); Monocytes % 5.6 %; Platelet Count 224 K/mcL (140-400); Red Blood Count 2.88 M/mcL (4.19-5.50); Red Cell Distribution Width 12.1 % (11.5-14.5); Segmented Neutrophils % 75.3 %
[2016-08-05 06:46] LABS: BUN/Creatinine Ratio 14 (6-26); Blood Urea Nitrogen 11 mg/dL (8-26); Calcium 7.8 mg/dL (8.6-10.8); Carbon Dioxide 20 mEq/L (19-29); Chloride 110 mEq/L (98-109); Glucose 104 mg/dL (70-99); Osmolality,Calculated 284 (280-300); Potassium 3.1 mEq/L (3.5-4.5); Sodium 137 mEq/L (136-145); eGFR For African Americans > 60 (> 60); eGFR For Non-African Americans > 60 (> 60)
[2016-08-05 06:49] LABS: Platelet Estimate Normal (Normal)
[2016-08-05 06:50] LABS: Anisocytosis 1+ (Not Present)
[2016-08-05] MEDS: Insulin LISPRO 300 UNITS/3 ML VIAL SQ SCH ×6 (09:11→20:40)
[2016-08-05] MEDS: Aspirin Enteric Coated 81 MG Tablet PO SCH (09:12)
[2016-08-05] MEDS: Ascorbic Acid 500 MG TABLET PO SCH ×2 (09:12→20:42)
[2016-08-05] MEDS: Folic Acid 1 MG TABLET PO SCH (09:12)
[2016-08-05] MEDS: Thiamine (B-1) 100 MG TABLET PO SCH (09:12)
[2016-08-05] MEDS: Insulin DETEMIR 100 UNIT/ML X5UNITS SQ SCH ×2 (09:14→20:43)
[2016-08-05] MEDS: Vancomycin 750 MG in D5% in Water 250 ML IVPB SCH (09:16)
--- NOTE | 2016-08-05 11:32 | Internal Med Progress Note ---
Date of Encounter: 08/05/16 Time of Encounter: 09:00 - Assessment and plan (1) Bacteremia Current Visit: Yes Status: Acute Assessment and plan: Gram positive cocci isolated in the blood culture. A second set of blood cultures have been requested, will follow second set of cultures. There is no fever, no leukocytosis. ESR >100. A transthoracic echocardiogram was obtained, there were no signs of vegetations. The patient looks clinically stable at this point. He is glucose is uncontrolled, however he has a hemoglobin A1c of 14.1, this patient is poorly compliant with medications and has poor adherence to medical therapy and is still doing drugs, however he denies the use of IV drugs. We will continue with IV vancomycin at this point, monitor kidney function tests. High risk medication, we need to monitor vancomycin levels accordingly. It is highly likely that this positive blood culture was a contaminant, however in light of a patient with multiple comorbidities, poor nutritional status and use of drugs it is reasonable to continue with coverage for bacteremia. (2) Peripheral vascular disease Current Visit: Yes Status: Acute Assessment and plan: Bilateral lower arterial physiologic ABRIL completed. PVR waveforms show within normal limits bilaterally. Dorsalis Pedis bilaterally within normal range-- ABRIL index above 1 bilaterally. We will continue with by mouth aspirin and statins. (3) Alcoholism /alcohol abuse Current Visit: Yes Status: Chronic Assessment and plan: Continue with CIWA protocol. Monitor the patient closely. (4) Hyponatremia Current Visit: No Status: Acute (5) Dehydration Current Visit: No Status: Acute (6) DVT prophylaxis Current Visit: No Status: Acute Assessment and plan: Continue with heparin. No evidence of thrombocytopenia, we will continue with heparin 5000 units every 12 hours subcutaneous. (7) Polysubstance abuse Current Visit: Yes Status: Chronic (8) Homeless Current Visit: No Status: Chronic (9) DVT prophylaxis Current Visit: No Status: Acute (10) Diabetes Current Visit: No Status: Chronic Assessment and plan: continue with insulin, increased levemir to 20 daily and give pre meals insulin. hb A1C above 14. Qualifiers: Diabetes mellitus type: type 2 Diabetes mellitus complication status: without complication Diabetes mellitus senior living insulin use: with senior living use Qualified Code(s): E11.9 - Type 2 diabetes mellitus without complications ; Z79.4 - [facility] (current) use of insulin (11) Cellulitis of both feet Current Visit: Yes Status: Acute Assessment and plan: Switched to vancomycin due to bacteremia. (12) Uncontrolled diabetes mellitus Current Visit: Yes Status: Chronic Qualifiers: Diabetes mellitus type: type 2 Diabetes mellitus complication status: with hyperglycemia Diabetes mellitus diabetes manager insulin use: without senior living use Qualified Code(s): E11.65 - Type 2 diabetes mellitus with hyperglycemia (13) Malnutrition Current Visit: Yes Status: Chronic (14) Marijuana abuse Current Visit: No Status: Acute (15) Alcohol abuse Current Visit: No Status: Chronic (16) Weakness generalized Current Visit: No Status: Acute Assessment and plan: PT evaluation recommended placement to SNF/ECF. He is currently homeless (17) Hepatitis C Current Visit: Yes Status: Chronic Assessment and plan: outpatient follow up. Qualifiers: Viral hepatitis chronicity: chronic Hepatic coma status: without hepatic coma Qualified Code(s): B18.2 - Chronic viral hepatitis C - Subjective Interval history: The patient was seen and examined in rounds. He was alert, awake, oriented. He did not seem to be in respiratory distress during this encounter. - Constitutional Vitals: Temp Pulse Resp BP Pulse Ox 98.6 F 92 16 112/67 100 08/05/16 08:31 08/05/16 08:31 08/05/16 08:31 08/05/16 08:31 08/05/16 08:31 General appearance: Present: cachectic, A&O X 3, pleasant, no acute distress, underweight, answers questions appropriately - Head Head exam: Present: atraumatic, normocephalic - Eye Eye exam: Present: PERRL, conjuntiva pink, sclera anicteric Pupils: Present: PERRL - Neck Neck exam general surgery: Present: supple, trachea midline. Absent: lymphadenopathy - Respiratory Respiratory exam: Present: CTAB. Absent: accessory muscle use, rales, rhonchi, wheezes - Cardiovascular Cardiovascular exam: Present: RRR, +S1, +S2. Absent: diastolic murmur, gallop, rubs, systolic murmur - GI/Abdominal GI/Abdominal exam: Present: normal bowel sounds, soft, no peritoneal signs. Absent: distended, tenderness - Extremities Exam Extremities exam: Present: warm, radial pulses palpable and symetrical. Absent : calf tenderness, cyanotic, pedal edema Additional comments: bilateral infected ulcers in feet and ankles - Neurological Exam Neurological exam: Present: CN II-XII intact, oriented X3, no focal deficits. Absent: pronater drift, facial droop, speech deficit - Skin Skin exam: Present: dry, intact Internal Medicine: Result - Labs CBC & Chem 7: 08/05/16 05:46 08/05/16 05:46 Labs: Short CBC 08/05/16 Range/Units 05:46 WBC 7.9 (4.3-11.1) K/mcL Hgb 7.9 L (12.9-16.9) g/dL Hct 23.9 L (37.5-50.1) % Plt Count 224 (140-400) K/mcL Neutrophils # 6.0 (1.6-8.9) K/mcL BMP 08/05/16 05:46 Sodium 137 Potassium 3.1 L Chloride 110 H Carbon Dioxide 20 BUN 11 Creatinine 0.79 Glucose 104 H Calcium 7.8 L - ABG Interpretation ABG results: PT/INR, D-dimer PT 13.5 Seconds (9.4-12.1) H 08/02/16 16:14 - Impressions Impressions Foot MRI 08/04/16 09:03 IMPRESSION: No evidence of osteomyelitis. No abscess or definite ulcer identified. Severe hallux valgus. D/ / 08/04/2016 12:19:28 Martin Seaman MD / rosa Interpreting Provider: Martin Seaman MD Foot MRI 08/04/16 09:03 IMPRESSION: 1. No evidence of acute osteomyelitis or infection in the right foot. No abscess identified. 2. Mild 2nd tarsometatarsal joint degenerative changes. D/ / 08/04/2016 12:13:19 Martin Seaman MD / rosa Interpreting Provider: Martin Seaman MD Consult Discharge Plan - Plan Referrals: NO,PCP [Primary Care Provider] - (patient is going to [facility])
[2016-08-05] MEDS: Vancomycin 1,000 MG in D5% in Water 250 ML IVPB SCH (17:38)
--- NOTE | 2016-08-06 01:45 | Venous Imaging Report ---
LE Venous Duplex Patient Name:Iban Proctor Order Number:[id number] Procedure Date:08/03/2016 Date:6Age:60 yrs Gender:Male Location:[facility] Room #: 2A25 Morgue Keeper:Lorraine Yin RVT Referring MD:Doug Samuel MD barrel endshaker adjuster:None Reading MD:Kirby Dorado MD Secondary Indications: Impressions: Normal bilateral lower extremity deep and superficial venous exam. Findings Venous Duplex Results: Right: Venous imaging of the lower extremity reveals full patency and normal vessel compressibility of the right distal iliac, right common femoral, right superficial femoral, right popliteal, right posterior tibial, right peroneal, right great saphenous and right lesser saphenous. Doppler signals in the evaluated veins were normal. Left: Venous imaging of the lower extremity reveals full patency and normal vessel compressibility of the left distal iliac, left common femoral, left superficial femoral, left popliteal, left posterior tibial, left peroneal, left great saphenous and left lesser saphenous. Doppler signals in the evaluated veins were normal. Prior Study: No prior study available for comparison. Updated by Kirby Dorado MD on 08/06/2016 1:38:08 AM electronically signed on 08/06/2016 1:38:38 AM with status of Final
--- NOTE | 2016-08-06 01:55 | Arterial Study Report ---
LE Arterial Physiologic Study Patient Name:Iban Proctor Order Number:[id number] Procedure Date:08/04/2016 Date:1955ge:60 yrs Gender:Male Lt BP:111 / mmHg Rt.BP:99 / mmHgHeart Rate: Location:[facility] Room #: 2A25 Treating Engineer Helper:Renetta Kendrick Referring MD:Doug Samuel MD ornamental metalwork designer:None Reading MD:Kirby Dorado MD Primary Indications:PVD ulcers Risk Factors Yes/No Smoking Current Diabetes Hx of TIA Impressions: The bilateral lower extremities are hemodynamically well maintained. The right ABRIL and waveforms are normal. Right ABRIL 1.34. The left ABRIL and waveforms are normal. Left ABRIL: 1.23. Findings LE Arterial Physiologic Exam: PVR: Right: The PVR waveforms are normal in the right ankle. Left: The PVR waveforms are normal in the left ankle. Prior Study: No prior study available for comparison. Segmental Pressures Side Location Pressure Index Result Left Dorsalis Pedis 149 1.34 Normal Left Dorsalis Pedis 136 1.23 Normal Ankle Brachial Index Right Systolic Diastolic ABRIL Brachial 99 Left Systolic Diastolic ABRIL Brachial 111 1.34 Dorsalis Pedis 149 1.34 Updated by Kirby Dorado MD on 08/06/2016 1:48:38 AM with Status of Final electronically signed on 08/06/2016 1:49:44 AM with status of Final
[2016-08-06] MEDS: Vancomycin 1,000 MG in D5% in Water 250 ML IVPB SCH (05:59)
[2016-08-06] MEDS: *HR* Heparin 5,000 UNIT/ML VIAL SQ SCH ×2 (06:00→18:14)
[2016-08-06 06:02] LABS: Basophils % 0.3 %; Eosinophils # 0.1 K/mcL (0.0-0.6); Eosinophils % 1.1 %; Hematocrit 22.8 % (37.5-50.1); Hemoglobin 7.6 g/dL (12.9-16.9); Immature Granulocytes % 1.4 % (0-4); Lymphocytes # 1.2 K/mcL (0.6-4.6); Lymphocytes % 16.9 %; Mean Corpuscular HGB Conc 33.3 g/dL (31.6-35.5); Mean Corpuscular Hemoglobin 27.7 pg (28.0-33.3); Mean Corpuscular Volume 83.2 fL (83.0-100.0); Mean Platelet Volume 9.3 fL (9.4-12.4); Monocytes # 0.5 K/mcL (0.0-1.3); Monocytes % 7.7 %; Neutrophils # 5.1 K/mcL (1.6-8.9); Platelet Count 226 K/mcL (140-400); Red Blood Count 2.74 M/mcL (4.19-5.50); Red Cell Distribution Width 12.2 % (11.5-14.5); Segmented Neutrophils % 72.6 %
[2016-08-06 06:14] LABS: BUN/Creatinine Ratio 18 (6-26); Blood Urea Nitrogen 14 mg/dL (8-26); Calcium 7.9 mg/dL (8.6-10.8); Carbon Dioxide 22 mEq/L (19-29); Chloride 109 mEq/L (98-109); Glucose 132 mg/dL (70-99); Magnesium 1.1 mg/dL (1.6-2.6); Osmolality,Calculated 284 (280-300); Potassium 3.7 mEq/L (3.5-4.5); Sodium 136 mEq/L (136-145); eGFR For African Americans > 60 (> 60); eGFR For Non-African Americans > 60 (> 60)
[2016-08-06 06:40] LABS: Platelet Estimate Normal (Normal)
[2016-08-06 06:44] LABS: Platelet Clumps Few (Not Present)
[2016-08-06] MEDS: Thiamine (B-1) 100 MG TABLET PO SCH (08:44)
[2016-08-06] MEDS: Folic Acid 1 MG TABLET PO SCH (08:44)
[2016-08-06] MEDS: Ascorbic Acid 500 MG TABLET PO SCH ×2 (08:44→21:14)
[2016-08-06] MEDS: Aspirin Enteric Coated 81 MG Tablet PO SCH (08:44)
[2016-08-06] MEDS: Magnesium Oxide 400 MG TABLET PO SCH ×2 (08:44→21:14)
[2016-08-06] MEDS: Magnesium Sulfate 2 GM in D5% in Water 100 ML IVPB SCH ×2 (08:45→11:27)
[2016-08-06] MEDS: Insulin LISPRO 300 UNITS/3 ML VIAL SQ SCH ×7 (08:47→21:15)
[2016-08-06] MEDS: Insulin DETEMIR 100 UNIT/ML X5UNITS SQ SCH ×2 (08:48→21:14)
[2016-08-06 10:05] LABS: Folate 11.1 ng/mL (7.0-31.4)
[2016-08-06] MEDS ORDERED: 0.9 % Sodium Chloride 500 ML ONE ×2 (10:59→14:17)
[2016-08-06] MEDS ORDERED: Aminoglycoside Consult 1 EACH MC ONE (14:56)
--- NOTE | 2016-08-06 16:37 | Internal Med Progress Note ---
Date of Encounter: 08/06/16 Time of Encounter: 10:50 - Assessment and plan (1) Bacteremia Current Visit: Yes Status: Acute Assessment and plan: The patient had bacteremia, he only had one positive blood culture out of 4. Staphylococcus auricularis was isolated. It is likely a contaminant, the patient has no fever, no leukocytosis, is otherwise asymptomatic. We will stop IV antibiotics at this point and continue monitoring the patient closely. (2) Peripheral vascular disease Current Visit: Yes Status: Acute Assessment and plan: Bilateral lower arterial physiologic ABRIL completed. PVR waveforms show within normal limits bilaterally. Dorsalis Pedis bilaterally within normal range-- ABRIL index above 1 bilaterally. We will continue with by mouth aspirin and statins. (3) Alcoholism /alcohol abuse Current Visit: Yes Status: Chronic Assessment and plan: Continue with CIWA protocol. Monitor the patient closely. (4) Hyponatremia Current Visit: No Status: Acute (5) Dehydration Current Visit: No Status: Acute (6) DVT prophylaxis Current Visit: No Status: Acute (7) Polysubstance abuse Current Visit: Yes Status: Chronic (8) Homeless Current Visit: No Status: Chronic (9) DVT prophylaxis Current Visit: No Status: Acute (10) Diabetes Current Visit: No Status: Chronic Qualifiers: Diabetes mellitus type: type 2 Diabetes mellitus complication status: without complication Diabetes mellitus [facility] insulin use: with [facility] use Qualified Code(s): E11.9 - Type 2 diabetes mellitus without complications ; Z79.4 - terminal press operator (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 (12) Uncontrolled diabetes mellitus Current Visit: Yes Status: Chronic Qualifiers: Diabetes mellitus type: type 2 Diabetes mellitus complication status: with hyperglycemia Diabetes mellitus terminologist insulin use: without terminologist use Qualified Code(s): E11.65 - Type 2 diabetes mellitus with hyperglycemia (13) Malnutrition Current Visit: Yes Status: Chronic (14) Marijuana abuse Current Visit: No Status: Acute (15) Alcohol abuse Current Visit: No Status: Chronic (16) Weakness generalized Current Visit: No Status: Acute Assessment and plan: PT evaluation recommended placement to SNF/ECF. He is currently homeless and has symptomatic anemia, we will transfuse 2 units today, if his hemoglobin improves and patient is stable we can discharge him to ECF tomorrow. His referral has been made by our director of social services, he has not been accepted to any facility yet. (17) Hepatitis C Current Visit: Yes Status: Chronic Qualifiers: Viral hepatitis chronicity: chronic Hepatic coma status: without hepatic coma Qualified Code(s): B18.2 - Chronic viral hepatitis C (18) Hypomagnesemia Current Visit: Yes Status: Acute Assessment and plan: Will supplement magnesium via IV and po. - Subjective Interval history: The patient was seen and examined in rounds. He was alert, awake, oriented. He did not seem to be in respiratory distress during this encounter. - Constitutional Vitals: Temp Pulse Resp BP Pulse Ox 98.9 F 83 16 112/70 99 08/06/16 14:46 08/06/16 14:46 08/06/16 14:46 08/06/16 14:46 08/06/16 14:46 General appearance: Present: cachectic, A&O X 3, pleasant, no acute distress, underweight, answers questions appropriately - Head Head exam: Present: atraumatic, normocephalic - Eye Eye exam: Present: PERRL, conjuntiva pink, sclera anicteric Pupils: Present: PERRL - Neck Neck exam general surgery: Present: supple, trachea midline. Absent: lymphadenopathy - Respiratory Respiratory exam: Present: CTAB. Absent: accessory muscle use, rales, rhonchi, wheezes - Cardiovascular Cardiovascular exam: Present: RRR, +S1, +S2. Absent: diastolic murmur, gallop, rubs, systolic murmur - GI/Abdominal GI/Abdominal exam: Present: normal bowel sounds, soft, no peritoneal signs. Absent: distended, tenderness - Extremities Exam Extremities exam: Present: warm, radial pulses palpable and symetrical. Absent : calf tenderness, cyanotic, pedal edema Additional comments: ulcers in lower extremities. - Neurological Exam Neurological exam: Present: CN II-XII intact, oriented X3, no focal deficits. Absent: pronater drift, facial droop, speech deficit - Skin Skin exam: Present: dry, intact Internal Medicine: Result - Labs CBC & Chem 7: 08/06/16 05:16 08/06/16 05:16 Labs: Short CBC 08/06/16 Range/Units 05:16 WBC 7.0 (4.3-11.1) K/mcL Hgb 7.6 L (12.9-16.9) g/dL Hct 22.8 L (37.5-50.1) % Plt Count 226 (140-400) K/mcL Neutrophils # 5.1 (1.6-8.9) K/mcL BMP 08/06/16 05:16 Sodium 136 Potassium 3.7 Chloride 109 Carbon Dioxide 22 BUN 14 Creatinine 0.76 Glucose 132 H Calcium 7.9 L - ABG Interpretation ABG results: PT/INR, D-dimer PT 13.5 Seconds (9.4-12.1) H 08/02/16 16:14 Consult Discharge Plan - Plan Referrals: NO,PCP [Primary Care Provider] - (patient is going to ECF)
[2016-08-06 18:21] LABS: % Iron Saturation 9 % (20-55); Iron 16 mcg/dL (65-175); Transferrin 125 mg/dL (174-364)
[2016-08-07 05:07] LABS: Basophils % 0.5 %; Eosinophils # 0.1 K/mcL (0.0-0.6); Eosinophils % 1.6 %; Hematocrit 29.9 % (37.5-50.1); Immature Granulocytes % 1.9 % (0-4); Lymphocytes # 1.1 K/mcL (0.6-4.6); Lymphocytes % 18.2 %; Mean Corpuscular HGB Conc 34.4 g/dL (31.6-35.5); Mean Corpuscular Hemoglobin 28.5 pg (28.0-33.3); Mean Corpuscular Volume 82.6 fL (83.0-100.0); Mean Platelet Volume 9.1 fL (9.4-12.4); Monocytes # 0.5 K/mcL (0.0-1.3); Monocytes % 8.7 %; Platelet Count 225 K/mcL (140-400); Red Blood Count 3.62 M/mcL (4.19-5.50); Red Cell Distribution Width 12.4 % (11.5-14.5); Segmented Neutrophils % 69.1 %
[2016-08-07 05:10] LABS: Hemoglobin 10.3 g/dL (12.9-16.9)
[2016-08-07 05:26] LABS: BUN/Creatinine Ratio 15 (6-26); Blood Urea Nitrogen 13 mg/dL (8-26); Calcium 8.1 mg/dL (8.6-10.8); Carbon Dioxide 22 mEq/L (19-29); Chloride 106 mEq/L (98-109); Glucose 304 mg/dL (70-99); Osmolality,Calculated 290 (280-300); Potassium 4.3 mEq/L (3.5-4.5); Sodium 134 mEq/L (136-145); eGFR For African Americans > 60 (> 60); eGFR For Non-African Americans > 60 (> 60)
[2016-08-07] MEDS: *HR* Heparin 5,000 UNIT/ML VIAL SQ SCH ×2 (05:27→17:37)
[2016-08-07 05:35] LABS: Platelet Estimate Normal (Normal)
[2016-08-07] MEDS: Insulin LISPRO 300 UNITS/3 ML VIAL SQ SCH ×7 (09:00→22:07)
[2016-08-07] MEDS: Magnesium Oxide 400 MG TABLET PO SCH ×2 (09:02→22:06)
[2016-08-07] MEDS: Ascorbic Acid 500 MG TABLET PO SCH ×2 (09:02→22:07)
[2016-08-07] MEDS: Aspirin Enteric Coated 81 MG Tablet PO SCH (09:02)
[2016-08-07] MEDS: Thiamine (B-1) 100 MG TABLET PO SCH (09:02)
[2016-08-07] MEDS: Folic Acid 1 MG TABLET PO SCH (09:02)
[2016-08-07] MEDS: Insulin DETEMIR 100 UNIT/ML X5UNITS SQ SCH ×2 (09:02→22:07)
--- NOTE | 2016-08-07 11:53 | Discharge Summary ---
Date of Encounter: 08/07/16 Time of Encounter: 11:53 - Discharge Diagnosis (1) Alcohol abuse Priority: Primary Status: Chronic (2) Cellulitis of both feet Priority: Primary Status: Acute (3) DM (diabetes mellitus), type 2 Priority: Secondary Status: Chronic Qualifiers: Diabetes mellitus complication status: without complication Diabetes mellitus nursing surgical services director insulin use: without nursing surgical services director use Qualified Code(s): E11.9 - Type 2 diabetes mellitus without complications (4) DVT prophylaxis Priority: Secondary Status: Acute (5) Hepatitis C Priority: Secondary Status: Chronic Qualifiers: Viral hepatitis chronicity: chronic Hepatic coma status: without hepatic coma Qualified Code(s): B18.2 - Chronic viral hepatitis C (6) Malnutrition Priority: Secondary Status: Chronic (7) Polysubstance abuse Priority: Secondary Status: Chronic - Discharge Medications Home Medications: Acetaminophen [Tylenol] 650 mg PO Q6HR PRN #0 tablet 08/07/16 [Rx] Ascorbic Acid [Vitamin C] 500 mg PO BID tablet 08/07/16 [Rx] Aspirin Enteric Coated [Aspirin EC] 81 mg PO DAILY tablet. 08/07/16 [Rx] Collagenase Oint [Santyl] 1 appl TP DAILY tube 08/07/16 [Rx] Folic Acid 1 mg PO DAILY tablet 08/07/16 [Rx] Insulin DETEMIR [Levemir] 25 unit SQ BID [id number] 08/07/16 [Rx] Insulin LISPRO [HumaLOG] 10 units SQ TIDWM vial 08/07/16 [Rx] Magnesium Oxide [Mag-Ox] 400 mg PO BID tablet 08/07/16 [Rx] Omeprazole [PriLOSEC] 20 mg PO DAILY@0630 capsule. 08/07/16 [Rx] Simvastatin [Zocor] 40 mg PO HS tablet 08/07/16 [Rx] Thiamine (B-1) [Vitamin B-1] 100 mg PO DAILY tablet 08/07/16 [Rx] Allergies/Adverse Reactions: Allergies No Known Allergies Allergy (Verified 08/02/16 14:50) Date of admission: 08/03/16 09:54 Primary care physician: PCP NO Consults: 08/03/16 15:04 Consult to Podiatry [CONS] Routine Consulting Provider: Podiatry [facility] Reason for Consult: Slough skin to dorsal aspect both feet and ankles - had maggots when arrived in ER Time Notified: 15:05 Call Completed: No Discharging clinician: Allison Dunn Anticipated date of discharge: 08/07/16 - Patient Status Disposition: Transfer SNF Condition: Fair Functional capacity at discharge: uses cane/walker Overall status at discharge: patient is progressing back to baseline - Discharge Instructions Follow Up With: NO,PCP [Primary Care Provider] - (patient is going to ECF) Additional Instructions: Please follow up with your primary care physician within five days after your discharge from the hospital. Please continue daily wound care as instructed by podiatry ( wound care instructions: Please change BID or PRN if needed, Thick application of santyl to fibrous areas, Wet to dry dressing, Kerlex). Please follow up with Podiatry within five days after your discharge from the hospital. Please continue all medications as prescribed Please closely monitor your fingerstick glucose. - Diet and Activity Activity: as per physical therapy Diet: diabetic diet Hospital course: Mr. Proctor is a 60 year old male with PMh of uncontrolled DM, chronic alcohol abuse, polysubstance abuse, hep C who was brought to the ER after being found unconscious on neighbour's porch. Patient was further admitted for management of cellulitis of both feet, fever, APRIL, electrolyte abnormalities, uncontrolled DM, and polysubstance abuse. He was started on empiric IV abx therapy, IV fluids , electrolytes were replenished, and insulin therapy was initiated. Pt responded appropriately to therapy. He was seen by podiatry and has been receiving daily wound care. He was noted to have one positive blood culture which was likely a contaminant given clearance of bacteremia in all the other blood cultures. At this time, patient is hemodynamically stable. He was evaluated by physical therapy and ECF placement was recommended. Patient is stable for transfer to ECF. He demonstrates understanding of his diagnosis and agree with the discharge care and plan. - Time Spent with Patient Total time spent providing and/or coordinating discharge services: Greater than 30 minutes - Constitutional Vitals: Temp Pulse Resp BP Pulse Ox 99.8 F H 98 20 104/67 98 08/07/16 11:48 08/07/16 11:48 08/07/16 11:48 08/07/16 11:48 08/07/16 11:48 General appearance: Present: cachectic, A&O X 3, pleasant, no acute distress, underweight, answers questions appropriately - Head Head exam: Present: atraumatic, normocephalic - Eye Eye exam: Present: normal appearance, conjuntiva pink, sclera anicteric - Respiratory Respiratory exam: Present: CTAB. Absent: respiratory distress, wheezes - Cardiovascular Cardiovascular exam: Present: RRR, +S1, +S2. Absent: diastolic murmur, gallop, rubs, systolic murmur - GI/Abdominal GI/Abdominal exam: Present: normal bowel sounds, soft, no peritoneal signs. Absent: distended, tenderness - Extremities Exam Extremities exam: Present: warm, radial pulses palpable and symetrical. Absent : calf tenderness, cyanotic, pedal edema Additional comments: dressing intract in bilateral lower extremities - Neurological Exam Neurological exam: Present: alert, oriented X3 - Psychiatric Psychiatric exam: Present: normal affect, normal mood
--- NOTE | 2016-08-07 15:27 | Physician Discharge Referral ---
ExtendedCare Referral Info Transfer To: [facility] - Diagnosis (1) Alcohol abuse Priority: Primary Status: Chronic (2) Cellulitis of both feet Priority: Primary Status: Acute (3) DM (diabetes mellitus), type 2 Priority: Secondary Status: Chronic (4) DVT prophylaxis Priority: Secondary Status: Acute (5) Hepatitis C Priority: Secondary Status: Chronic (6) Malnutrition Priority: Secondary Status: Chronic (7) Polysubstance abuse Priority: Secondary Status: Chronic - Transfer Medications Home Medications: Acetaminophen [Tylenol] 650 mg PO Q6HR PRN #0 tablet 08/07/16 [Rx] Ascorbic Acid [Vitamin C] 500 mg PO BID tablet 08/07/16 [Rx] Aspirin Enteric Coated [Aspirin EC] 81 mg PO DAILY tablet. 08/07/16 [Rx] Collagenase Oint [Santyl] 1 appl TP DAILY tube 08/07/16 [Rx] Folic Acid 1 mg PO DAILY tablet 08/07/16 [Rx] Insulin DETEMIR [Levemir] 25 unit SQ BID [id number] 08/07/16 [Rx] Insulin LISPRO [HumaLOG] 10 units SQ TIDWM vial 08/07/16 [Rx] Magnesium Oxide [Mag-Ox] 400 mg PO BID tablet 08/07/16 [Rx] Omeprazole [PriLOSEC] 20 mg PO DAILY@0630 capsule. 08/07/16 [Rx] Simvastatin [Zocor] 40 mg PO HS tablet 08/07/16 [Rx] Thiamine (B-1) [Vitamin B-1] 100 mg PO DAILY tablet 08/07/16 [Rx] Allergies/Adverse Reactions: Allergies No Known Allergies Allergy (Verified 08/02/16 14:50) - Respiratory Orders Smoking Cessation: Smoking cessation has been advised. For more information, call the [place] Tobacco Quit Line at 8-035-YDPV-NOW. - Treatments List/Other: Please follow up with your primary care physician within five days after your discharge from the hospital. Please continue daily wound care as instructed by podiatry ( wound care instructions: Please change BID or PRN if needed, Thick application of santyl to fibrous areas, Wet to dry dressing, Kerlex). Please follow up with Podiatry within five days after your discharge from the hospital. Please continue all medications as prescribed Please closely monitor your fingerstick glucose. - Diet Orders House Supplement per Dietary: Diabetic Diet CERTIFICATION: I certify that the transfer of the above named patient to an Extended Care Facility is necessary for the continuing treatment of the diagnosis listed. The above information is true and accurate reflection of patient's current condition. Confidential - Redisclosure prohibited without a patient's written consent.
--- NOTE | 2016-08-07 16:39 | Podiatry Progress Note ---
Date of Encounter: 08/07/16 Time of Encounter: 17:00 - Assessment and Plan (1) Ulcers of both lower extremities Current Visit: Yes Status: Acute Dressings changed at bedside Wounds appear much improved, no clinical signs of infection Continue same, continue santyl, adaptic, wet to dry and kerlex BID Patient to go to ECF Will follow up in wound care center 1 week after discharge call with any issues or concerns (2) Cellulitis of both feet Current Visit: Yes Status: Acute (3) Uncontrolled diabetes mellitus Current Visit: Yes Status: Chronic Qualifiers: Diabetes mellitus type: type 2 Diabetes mellitus complication status: with hyperglycemia Diabetes mellitus termite renewal inspector insulin use: without termite renewal inspector use Qualified Code(s): E11.65 - Type 2 diabetes mellitus with hyperglycemia Subjective Interval history: Mr. Proctor is a 60 year old male whom we have been following for ulcerations of BLE. Patient resting comfortably on arrival. States he is doing well. Denies pain at this time. Denies any fevers chills n/v or flu like symptoms. Patient awaiting medicaid number for ECF placement. Will go to ECF and follow up with wound care center. Dressings disheveled on arrival but in place. Objective - Vital Signs Vital Signs: Vital Signs Temp Pulse Resp BP Pulse Ox 08/07/16 15:24 98 F 94 16 119/89 99 08/07/16 11:48 99.8 F H 98 20 104/67 98 08/07/16 09:04 98.8 F 86 16 126/82 98 08/07/16 04:38 99.5 F 85 18 133/84 99 08/06/16 23:35 98.1 F 78 16 107/61 100 08/06/16 19:00 99.7 F H 86 16 125/78 99 08/06/16 17:24 98.8 F 86 16 116/81 08/06/16 16:49 99 F 121 18 113/74 100 Intake and Output 08/07/16 08/07/16 08/07/16 07:59 15:59 23:59 Intake Total 120 / 120 Output Total 1350 / 1350 Balance -1230 / -1230 Intake: Oral 120 / 120 Output: Urine 1350 / 1350 Other: Weight 61.689 kg Blood Glucose* 115 Patient Weight 08/07/16 23:59 Weight 61.689 kg - Exam Exam: General Examination: CONSTITUTIONAL: Alert, oriented, in no acute distress, non-toxic. EXTREMITIES: CFT 3 seconds all toes. Edema +1 and pedal pulses palpable. SKIN: Skin with decreased turgor, decreased subcutaneous tissue, skin thin and shiny with trophic changes associated with comorbidities as described in history.. NEUROLOGIC: Intact sensation to light touch Wounds much improved since last examined Daily application of santyl has allowed for removal of a large amount of slough tissue exposing healthy granulation tissue to wound bed right foot 20% slough and 80% healthy granulation tissue, continues to weep clear/yellow serous fluid, friable to touch Left 50% fibrous 50% granulation tissue, continues to weep clear/yellow serous fluid, friable to touch. no erythema, edema, purulent drainage, warmth or odor. No clinical signs of infection to wounds. No calf pain with manual compression - Lab Result Diagrams: 08/07/16 04:45 08/07/16 04:45 Labs: Abnormal lab results RBC 3.62 M/mcL (4.19-5.50) L 08/07/16 04:45 Hgb 10.3 g/dL (12.9-16.9) L D 08/07/16 04:45 Hct 29.9 % (37.5-50.1) L 08/07/16 04:45 MCV 82.6 fL (83.0-100.0) L 08/07/16 04:45 MPV 9.1 fL (9.4-12.4) L 08/07/16 04:45 Reactive Lymphocytes Present (Not Present) A 08/04/16 03:15 Toxic Granulation Present (Not Present) A 08/04/16 03:15 Dohle Bodies Present (Not Present) A 08/04/16 03:15 Clumped Platelets Few (Not Present) A 08/06/16 05:16 Anisocytosis 1+ (Not Present) A 08/05/16 05:46 ESR 101 mm/hr (0-10) H 08/04/16 03:15 PT 13.5 Seconds (9.4-12.1) H 08/02/16 16:14 Sodium 134 mEq/L (136-145) L 08/07/16 04:45 Glucose 304 mg/dL (70-99) H 08/07/16 04:45 POC Glucose 369 (58-89) H 08/07/16 08:40 Hemoglobin A1c >= 14.1 % (-5.6) H 08/02/16 16:14 Calcium 8.1 mg/dL (8.6-10.8) L 08/07/16 04:45 Magnesium 1.1 mg/dL (1.6-2.6) L 08/06/16 05:16 Iron 16 mcg/dL (65-175) L 08/06/16 05:16 % Saturation 9 % (20-55) L 08/06/16 05:16 Transferrin 125 mg/dL (174-364) L 08/06/16 05:16 Total Bilirubin 1.3 mg/dL (0.2-1.2) H 08/02/16 16:14 Direct Bilirubin 0.8 mg/dL (0.0-0.5) H 08/02/16 16:14 AST 50 Units/L (5-34) H 08/02/16 16:14 C-Reactive Protein 51 mg/L (Less than 5) H 08/04/16 03:15 Albumin 2.9 g/dL (3.5-5.0) L 08/02/16 16:14 Globulin 4.9 g/dL (2.4-3.5) H 08/02/16 16:14 Albumin/Globulin Ratio 0.6 (1.1-2.2) L 08/02/16 16:14 HDL Cholesterol 28 mg/dL (40-59) L 08/03/16 03:18 Urine Clarity Cloudy (Clear) A 08/02/16 19:05 Ur Specific [place] 1.028 (1.010-1.025) H 08/02/16 19:05 Urine Protein 30 mg/dL (Neg-Trace) H 08/02/16 19:05 Urine Glucose (UA) >=1000 mg/dL (Normal) H 08/02/16 19:05 Urine Ketones 15 mg/dL (Negative) H 08/02/16 19:05 Urine Bilirubin Small (Negative) H 08/02/16 19:05 Ur Squamous Epith Cells Many per lpf (None-Few) H 08/02/16 19:05 Vancomycin Trough 2.1 mcg/mL (10-20) L 08/05/16 08:41 Urine Cocaine Screen Positive ng/mL (Cutoff= 300) H 08/02/16 19:05 U Marijuana (THC) Screen Positive ng/mL (Cutoff = 50) H 08/02/16 19:05 Staphylococcus sp PCR DETECTED (Not Detect) A 08/02/16 16:25 Consult Discharge Plan - Plan Additional Instructions: Please follow up with your primary care physician within five days after your discharge from the hospital. Please continue daily wound care as instructed by podiatry ( wound care instructions: Please change BID or PRN if needed, Thick application of santyl to fibrous areas, Wet to dry dressing, Kerlex). Please follow up with Podiatry within five days after your discharge from the hospital. Please continue all medications as prescribed Please closely monitor your fingerstick glucose. Referrals: NO,PCP [Primary Care Provider] - (patient is going to ECF)
[2016-08-08] MEDS: *HR* Heparin 5,000 UNIT/ML VIAL SQ SCH (06:24)
[2016-08-08 06:26] LABS: Hematocrit 29.6 % (37.5-50.1); Hemoglobin 9.6 g/dL (12.9-16.9); Mean Corpuscular HGB Conc 32.4 g/dL (31.6-35.5); Mean Corpuscular Hemoglobin 27.1 pg (28.0-33.3); Mean Corpuscular Volume 83.6 fL (83.0-100.0); Mean Platelet Volume 8.9 fL (9.4-12.4); Monocytes # 0.9 K/mcL (0.0-1.3); Platelet Count 281 K/mcL (140-400); Red Blood Count 3.54 M/mcL (4.19-5.50); Red Cell Distribution Width 12.3 % (11.5-14.5)
[2016-08-08 06:47] LABS: BUN/Creatinine Ratio 18 (6-26); Blood Urea Nitrogen 14 mg/dL (8-26); Calcium 8.3 mg/dL (8.6-10.8); Carbon Dioxide 26 mEq/L (19-29); Chloride 103 mEq/L (98-109); Glucose 52 mg/dL (70-99); Magnesium 1.1 mg/dL (1.6-2.6); Osmolality,Calculated 282 (280-300); Phosphorous 3.3 mg/dL (2.3-4.7); Potassium 3.8 mEq/L (3.5-4.5); Sodium 137 mEq/L (136-145); eGFR For African Americans > 60 (> 60); eGFR For Non-African Americans > 60 (> 60)
[2016-08-08] MEDS ORDERED: Magnesium Sulfate 2 GM in D5% in Water 100 ML IVPB ONE (07:47)
[2016-08-08 07:48] LABS: Eosinophils # 0.2 K/mcL (0.0-0.6); Lymphocytes # 1.9 K/mcL (0.6-4.6); Neutrophils # 4.2 K/mcL (1.6-8.9); Platelet Estimate Normal (Normal); Reactive Lymphocytes Present (Not Present)
[2016-08-08] MEDS: Insulin LISPRO 300 UNITS/3 ML VIAL SQ SCH ×4 (07:51→11:06)
[2016-08-08] MEDS: Insulin DETEMIR 100 UNIT/ML X5UNITS SQ SCH (07:59)
[2016-08-08] MEDS: Magnesium Oxide 400 MG TABLET PO SCH (08:00)
[2016-08-08] MEDS: Folic Acid 1 MG TABLET PO SCH (08:00)
[2016-08-08] MEDS: Thiamine (B-1) 100 MG TABLET PO SCH (08:00)
[2016-08-08] MEDS: Ascorbic Acid 500 MG TABLET PO SCH (08:00)
[2016-08-08] MEDS: Aspirin Enteric Coated 81 MG Tablet PO SCH (08:00)
--- NOTE | 2016-08-08 10:00 | Internal Med Progress Note ---
Date of Encounter: 08/08/16 Time of Encounter: 09:57 - Assessment and plan (1) Alcohol abuse Current Visit: No Status: Chronic (2) Cellulitis of both feet Current Visit: Yes Status: Acute (3) DM (diabetes mellitus), type 2 Current Visit: No Status: Chronic Qualifiers: Diabetes mellitus complication status: without complication Diabetes mellitus usp insulin use: without usp use Qualified Code(s): E11.9 - Type 2 diabetes mellitus without complications (4) DVT prophylaxis Current Visit: No Status: Acute (5) Hepatitis C Current Visit: Yes Status: Chronic Qualifiers: Viral hepatitis chronicity: chronic Hepatic coma status: without hepatic coma Qualified Code(s): B18.2 - Chronic viral hepatitis C (6) Malnutrition Current Visit: Yes Status: Chronic (7) Polysubstance abuse Current Visit: Yes Status: Chronic - Subjective Interval history: Pt seen and examined. Resting in bed and reports of feeling better and denies any discomfort at this time. Pt was discharged to ECF yesterday however was not able to leave due to insurance issues. Pt has been approved by insurance and will be discharged to ECF today. Pt demonstrates understanding of his diagnosis and agree with the discharge care and plan. He was noted to be hypomagnesemic this morning. IV Mg will be supplemented prior to discharge and he will be discharged on Mg supplements. - Constitutional Vitals: Temp Pulse Resp BP Pulse Ox 98.8 F 89 18 107/72 99 08/08/16 07:24 08/08/16 07:24 08/08/16 07:24 08/08/16 07:24 08/08/16 07:24 General appearance: Present: cachectic, A&O X 3, pleasant, no acute distress, underweight, answers questions appropriately - Head Head exam: Present: atraumatic, normocephalic - Eye Eye exam: Present: normal appearance, conjuntiva pink, sclera anicteric - Respiratory Respiratory exam: Present: CTAB. Absent: accessory muscle use, rales, rhonchi, wheezes - Cardiovascular Cardiovascular exam: Present: RRR, +S1, +S2. Absent: diastolic murmur, gallop, rubs, systolic murmur - GI/Abdominal GI/Abdominal exam: Present: normal bowel sounds, soft, no peritoneal signs. Absent: distended, tenderness - Extremities Exam Extremities exam: Present: warm, radial pulses palpable and symetrical Additional comments: bilateral feet wrapped in dressing - Neurological Exam Neurological exam: Present: alert, oriented X3 - Psychiatric Psychiatric exam: Present: normal affect, normal mood Internal Medicine: Result - Labs CBC & Chem 7: 08/08/16 05:55 08/08/16 05:55 Labs: Short CBC 08/08/16 Range/Units 05:55 WBC 7.3 (4.3-11.1) K/mcL Hgb 9.6 L (12.9-16.9) g/dL Hct 29.6 L (37.5-50.1) % Plt Count 281 (140-400) K/mcL Neutrophils # 4.2 (1.6-8.9) K/mcL BMP 08/08/16 05:55 Sodium 137 Potassium 3.8 Chloride 103 Carbon Dioxide 26 BUN 14 Creatinine 0.76 Glucose 52 L Calcium 8.3 L - ABG Interpretation ABG results: PT/INR, D-dimer PT 13.5 Seconds (9.4-12.1) H 08/02/16 16:14 Consult Discharge Plan - Plan Additional Instructions: Please follow up with your primary care physician within five days after your discharge from the hospital. Please continue daily wound care as instructed by podiatry ( wound care instructions: Please change BID or PRN if needed, Thick application of santyl to fibrous areas, Wet to dry dressing, Kerlex). Please follow up with Podiatry within five days after your discharge from the hospital. Please continue all medications as prescribed Please closely monitor your fingerstick glucose. Referrals: NO,PCP [Primary Care Provider] - (patient is going to [facility])
[2016-08-08 10:45] VITALS: BP 112/70
== END 2016-08-08 13:05 | DRG 383 ==
LOC: 2ANU 14:46 → EMEROO 14:46 → 2ANU 19:29 → SUATTDRO 08-03 09:54
PROVIDERS: ADMIT Hospitalist; ATTEND Internal Medicine

== ENCOUNTER 2017-01-09 16:18 | Inpatient (IN) ==
[2017-01-09] MEDS ORDERED: 0.9 % Sodium Chloride 1,000 ML IVC ONE ×2 (16:20→16:21)
--- NOTE | 2017-01-09 16:24 | Emergency Department Note ---
START Narrative - START START: I examined this patient and my medical decision-making was reviewed with the Resident Physician. I agree with the documented findings, disposition and treatment plan as described except to the extent set forth below. She just got out of care home, says he has not had insulin in months. He does not know what his usual doses. Blood sugar "high" on glucometer reading per EMS report. He has not had abdominal pain or vomiting. Does not look sick. Doubt DKA. We will hydrate him, get his sugar down, and provide resources for outpatient follow-up with our residency clinic, assuming the absence of DKA.
--- NOTE | 2017-01-09 16:25 | Emergency Department Note ---
Disposition Clinical Impression: Hyperglycemia, Homeless Disposition: Admitted As Inpatient Condition: Good Forms: ED Satisfaction Letter General Adult HPI - General Chief complaint: ED Nausea/Vomiting/Diarrhea Stated complaint: HYPERGLYCEMIA Time Seen by Provider: 01/09/17 16:19 Source: patient Limitations: no limitations - History of Present Illness HPI Narrative: 61-year-old male presents to the ED complaining of hyperglycemia. He got out of residential approximately one month ago and has not had his insulin since then he is a type 1 insulin-dependent diabetic. He is having no signs or symptoms of hyperglycemia or DKA. He is not complaining of any nausea, vomiting, diarrhea, blurry vision, headaches, pain or tingling of the arms or legs, dizziness. He states he is really thirsty. He has had no fevers. Seminal chest pain or shortness of breath. The reason he checked his blood sugar is because family was checking for at home and it was reading as high. EMS was called and said they got a reading of high as well. Patient has not been taking any of his insulin and does not know his normal insulin regimen is as he has been out of for the last month. Patient is not having any complaints at this time. Pain Scale: 0 - Related Data Previous Rx's Medication Instructions Recorded Acetaminophen [Tylenol] 650 mg PO Q6HR PRN #0 tablet 08/07/16 Ascorbic Acid [Vitamin C] 500 mg PO BID tablet 08/07/16 Aspirin Enteric Coated [Aspirin EC] 81 mg PO DAILY tablet. 08/07/16 Collagenase Oint [Santyl] 1 appl TP DAILY tube 08/07/16 Folic Acid 1 mg PO DAILY tablet 08/07/16 Insulin DETEMIR [Levemir] 25 unit SQ BID [id number] 08/07/16 Insulin LISPRO [HumaLOG] 10 units SQ TIDWM vial 08/07/16 Magnesium Oxide [Mag-Ox] 400 mg PO BID tablet 08/07/16 Omeprazole [PriLOSEC] 20 mg PO DAILY@0630 capsule. 08/07/16 Simvastatin [Zocor] 40 mg PO HS tablet 08/07/16 Thiamine (B-1) [Vitamin B-1] 100 mg PO DAILY tablet 08/07/16 Allergies Allergy/AdvReac Type Severity Reaction Status Date / Time No Known Allergies Allergy Verified 08/02/16 14:50 Review of Systems: 10-point Review of systems done and negative unless otherwise stated in history of present illness. All systems ED: reviewed and negative except as stated. Review of Systems: As Per HPI Past Medical History - Past Medical History Medical history: Reports: arthritis, diabetes, GERD, hepatitis, hyperlipidemia, hypertension, osteoporosis, seizures, syncope, other Surgical history: Reports: cholecystectomy Psychiatric history: Reports: anxiety, depression - Social History Smoking Status: Current every day smoker Smokeless Tobacco Status: No Alcohol use: Reports: heavy, recent Drug use: Reports: cocaine, marijuana Physical Exam - General Limitations: no limitations General appearance: alert - Head Head exam: atraumatic, normocephalic, normal inspection - Eye Eye exam: Present: normal appearance, PERRL, EOMI - ENT ENT exam: normal exam, normal oropharynx, mucous membranes moist - Neck Neck exam: Present: normal inspection, full ROM, trachea midline - Chest Chest inspection: Present: normal inspection, symmetric chest wall rise - Respiratory Respiratory exam: Present: normal lung sounds bilaterally - Cardiovascular Cardiovascular exam: Present: regular rate, normal rhythm, normal heart sounds - Abdominal Exam Abdominal exam: Present: soft, Non-Tender. Absent: tenderness, distention, guarding, rebound, rigidity - Extremities Exam Extremities exam: Present: normal inspection, full ROM. Absent: tenderness, pedal edema, joint swelling, calf tenderness - Expanded Lower Extremity Exam Neurovascular/Tendon exam: Present: normal capillary refill. Absent: pulse deficit, motor deficit Gait: observed and normal - Back Exam Back exam: Present: normal inspection, full ROM. Absent: tenderness, CVA tenderness (R), CVA tenderness (L) - Neurological Exam Neurological exam: Present: alert, oriented X3 - Psychiatric Psychiatric exam: Present: normal affect, normal mood - Skin Skin exam: Present: warm, dry, intact, normal color Course Course Narrative: 61-year-old male presents to ED complaining of hyperglycemia. We will do every 2 hours blood sugar tests, get a BMP start an IV and gave him a 2 L bolus of normal saline. Also get a urine to check for ketones. At this time the patient looks well and is having no other symptoms of DKA. Patient is also to be seen by social work for possible replacement of a nursing facility. Vital Signs Temperature 98.5 F 01/09/17 16:19 Pulse Rate 77 01/09/17 16:19 Respiratory Rate 18 01/09/17 16:19 Blood Pressure 140/106 01/09/17 16:19 O2 Sat by Pulse Oximetry 99 01/09/17 16:19 Temperature 98.5 F 01/09/17 16:19 Pulse Rate 85 01/09/17 17:55 Respiratory Rate 18 01/09/17 17:55 Blood Pressure 173/114 01/09/17 17:55 O2 Sat by Pulse Oximetry 100 01/09/17 17:55 Oxygen Delivery Oxygen Delivery Room Air Medical Decision Making - MDM Narrative Medical decision making narrative: 61-year-old male presents to the ED for hyperglycemia. He is a type I diabetic and has not been taking his insulin for approximately one month after being jailed. He was recently at a correction and correction care source has agreed to take him back into the correction as long as he gets admitted and they said they would help with that. This will have current beds now but would place him in the next 1-2 days. Patient has not been taking any of his insulin. Upon arrival we did get a blood glucose which read high on the Accu- Chek we did get a BMP which showed a blood glucose of 788 he did not have a gap and his corrected sodium was normal. He was not hypokalemic at this time. We gave him 2 L of normal saline via IV. We have given insulin at this time thought that the floor concern monitor normal regimen. Patient otherwise has no symptoms and no signs of DKA. He is very stable and is alert and oriented. He is having no nausea or vomiting or abdominal pain to suggest any other signs or symptoms that could be causing his hyperglycemia. Most likely is due to poor control and not taking his insulin. Patient will be admitted to the hospitalist service. They have agreed to accept the patient for observation and starting a insulin regimen and getting him placed into a correction. Patient is stable at this time. - Medical Records Medical records reviewed: Yes I reviewed the patient's medical records. - Lab Data Lab results reviewed: Yes I reviewed the patient's lab results. Result diagrams: 01/09/17 16:55 Lab Results 01/09/17 01/09/17 Range/Units 16:55 17:46 Sodium 131 L (136-145) mEq/L Potassium 3.9 (3.5-4.5) mEq/L Chloride 94 L (98-109) mEq/L Carbon Dioxide 25 (19-29) mEq/L BUN 10 (8-26) mg/dL Creatinine 1.62 H (0.72-1.25) mg/dL Est GFR ( Amer) 53 L (> 60) Est GFR (Non-Af Amer) 44 L (> 60) BUN/Creatinine Ratio 6 (6-26) Glucose 788 H* (70-99) mg/dL Calculated Osmolality 309 H (280-300) Calcium 8.6 (8.6-10.8) mg/dL Urine Color Yellow (Yellow) Urine Clarity Clear (Clear) Urine pH 6.5 (5.0-8.0) pH Units Ur Specific [place] 1.028 H (1.010-1.025) Urine Protein Negative (Neg-Trace) mg/dL Urine Glucose (UA) >=1000 H (Normal) mg/dL Urine Ketones Trace H (Negative) mg/dL Urine Blood Negative (Negative) Urine Nitrite Negative (Negative) Urine Bilirubin Negative (Negative) Urine Urobilinogen Normal (Normal) mg/dL Ur Leukocyte Esterase Negative (Negative) Ur Culture Indicated? NO (NO)
[2017-01-09 17:20] LABS: Calcium 8.6 mg/dL (8.6-10.8); Potassium 3.9 mEq/L (3.5-4.5)
[2017-01-09 17:58] LABS: Bilirubin,Urine Negative (Negative); Blood,Urine Negative (Negative); Clarity,Urine Clear (Clear); Color,Urine Yellow (Yellow); Glucose,Urine (UA) >=1000 mg/dL (Normal); Ketones,Urine Trace mg/dL (Negative); Leukocyte Esterase,Urine Negative (Negative); Nitrite,Urine Negative (Negative); PH,Urine 6.5 pH Units (5.0-8.0); Protein,Urine Negative (Neg-Trace); Specific Gravity,Urine 1.028 (1.010-1.025); Urobilinogen,Urine Normal (Normal)
[2017-01-09] MEDS ORDERED: Insulin Regular, Human 100 UNIT/ML SQ ONE (18:14)
[2017-01-09 18:22] LABS: Basophils % 0.3 %; Eosinophils % 0.6 %; Hematocrit 28.9 % (37.5-50.1); Hemoglobin 9.7 g/dL (12.9-16.9); Immature Granulocytes % 0.3 % (0-4); Lymphocytes # 0.9 K/mcL (0.6-4.6); Lymphocytes % 26.2 %; Mean Corpuscular HGB Conc 33.6 g/dL (31.6-35.5); Mean Corpuscular Hemoglobin 28.1 pg (28.0-33.3); Mean Corpuscular Volume 83.8 fL (83.0-100.0); Mean Platelet Volume 10.9 fL (9.4-12.4); Monocytes # 0.3 K/mcL (0.0-1.3); Monocytes % 9.3 %; Neutrophils # 2.1 K/mcL (1.6-8.9); Platelet Count 126 K/mcL (140-400); Red Blood Count 3.45 M/mcL (4.19-5.50); Red Cell Distribution Width 12.7 % (11.5-14.5); Segmented Neutrophils % 63.3 %
[2017-01-09] MEDS ORDERED: *HR* Dextrose 50 % in Water (Syg) 50 ML SYRINGE IVP PRN (19:31)
[2017-01-09] MEDS ORDERED: Naloxone 0.4 MG/ML INJ IVP PRN (19:32)
--- NOTE | 2017-01-09 19:35 | Internal Med History&Physical ---
Date of Encounter: 01/09/17 Time of Encounter: 19:35 Assessment and Plan (1) Uncontrolled diabetes mellitus Current visit: Yes Status: Chronic History of type II diabetes mellitus well-controlled from homelessness,he could not report any home medication that he is taking, his A1c was >14.1 in 07/2016, he was admitted to what the glucose of 788, will admit for insulin drip and transition to basal bolus insulin regimen when glucose drops below 250, will need diabetic education, social work consult to assist with discharge planning and other community assistance Qualifiers: Diabetes mellitus type: type 2 Diabetes mellitus complication status: with hyperglycemia Diabetes mellitus superintendent terminal insulin use: without superintendent terminal use Qualified Code(s): E11.65 - Type 2 diabetes mellitus with hyperglycemia (2) GERD (gastroesophageal reflux disease) Current visit: Yes Status: Chronic Qualifiers: Esophagitis presence: without esophagitis Qualified Code(s): K21.9 - Gastro -esophageal reflux disease without esophagitis (3) HTN (hypertension) Current visit: Yes Status: Chronic Do not have a list of home medications, will start RAY-I and calcium channel blockers for BP management, Qualifiers: Hypertension type: essential hypertension Qualified Code(s): I10 - Essential (primary) hypertension (4) ETOH abuse Current visit: Yes Status: Chronic reported prior history, he currently denies any active use, will do CIWA monitoring (5) Pancytopenia Current visit: Yes Status: Chronic likely from alcohol use vs vitamin deficiencies, will empirically start on folic acid and multivites (6) Homeless Current visit: Yes Status: Chronic This is likely driving is current state, will get social work consult (7) Foot ulceration Current visit: Yes Status: Chronic Healing well, will need monitoring and nursing care Qualifiers: Laterality: left Non-pressure ulcer stage: limited to breakdown of skin Qualified Code(s): L97.521 - Non-pressure chronic ulcer of other part of left foot limited to breakdown of skin Internal Medicine - H&P: HPI Chief complaint: High glucose reading at home Admitted From: Emergency Dept Plans for Post Hospital Care: Home History of present illness: Mr. Proctor is a 61 year old male with a history of type II diabetes with poor control from medication non-compliance due to homelessness who was brought to the ER of [facility] for high glucose readings at home. Patient reports that he lives with his brother and the and this morning he was noted to be lethargic and excessively sleepy. So his [id number] checked his glucose reading and it was a unrecordable so she informed him that he was coming to the ER for further evaluation and management for his glucose readings. Further history reveals that he has been experiencing polyuria, polydipsia, nocturia, urinary frequency. He denies blurry vision or lightheadedness. He denies any symptoms of fever, chills, nausea, vomiting or change in bowel habits. In the ER upon presentation his glucose reading was greater than 700. He is being admitted for hyperglycemia management. Patient does not know his home medications Past Med Surg Social Fam HX - Past Medical History Medical history: arthritis, diabetes, GERD, hepatitis, hyperlipidemia, hypertension, osteoporosis, seizures, syncope, other Psychiatric history: anxiety, depression - Past Surgical History Surgical History: cholecystectomy - Social History Smoking Status: Current every day smoker (he reports up to 1/2 ppd) Smokeless Tobacco Status: No Alcohol use: heavy, recent Drug use: cocaine, marijuana Current living situation: With Family, Homeless Activity Level: Independent ambulation - Family History Mother Adopted: (poor historian) - Additional Family History Additional family history: He denies family history of diabetes mellitus, hypertension or [place] to his knowledge, however both parents are , cause of unknown to patient Internal Medicine - H&P: Meds No Known Home Drugs 01/09/17 [History] 3 Allergy/AdvReac Type Severity Reaction Status Date / Time No Known Allergies Allergy Verified 08/02/16 14:50 All Systems PM: A 10-system review of systems was performed and is negative for pertinent findings except as documented above in the HPI. - Constitutional Vitals: Temp Pulse Resp BP Pulse Ox 97.6 F 85 18 114/83 98 01/09/17 19:21 01/09/17 19:21 01/09/17 19:21 01/09/17 19:21 01/09/17 19:21 GENERAL: Adult male, lying in bed, Alert, not in obvious pain or distress HEENT: NC/AT, EOMI, PERRLA, anicteric sclera, normal conjunctiva, supple, clear nares, dry mucous membranes, RESP: Lungs are clear to auscultation bilaterally, with good AE, no crackles or wheeze CARDIO: Normal heart sounds with RRR, no murmurs, no JVD, no ankle edema GI: Soft, full, no tenderness, no organomegaly felt, normal bowel sounds heard MUSCULOSKELETAL: Grossly normal movements bilaterally, no deformities noted, NEUROLOGIC: CN 2-12 intact grossly. No gross motor/sensory deficit appreciated, PSYCHIATRY: AAO x 3. Mood is fair SKIN: he has 2 ulcers; one on the left hyman, the other on the left lateral malleolus, his right ankle shows a recently healed circumferential ulcer Internal Med - H&P Results - Labs CBC & Chem 7: 01/09/17 16:55 01/09/17 16:55
[2017-01-09] MEDS ORDERED: Insulin Human Regular 100 UNIT in 0.9 % Sodium Chloride 100 ML IVC SCH (19:45)
[2017-01-09] MEDS: *HR* Heparin 5,000 UNIT/ML VIAL SQ SCH (21:23)
[2017-01-10] MEDS ORDERED: D5% in Water 1,000 ML IVC PRN (01:26)
[2017-01-10] MEDS ORDERED: Dextrose Gel 15 GM PO PRN ×2 (01:26)
[2017-01-10] MEDS ORDERED: Insulin DETEMIR 100 UNIT/ML X5UNITS SQ SCH ×2 (01:30→06:15)
[2017-01-10] MEDS: Insulin LISPRO 300 UNITS/3 ML VIAL SQ SCH ×6 (02:40→20:16)
[2017-01-10 05:20] LABS: Hemoglobin A1C 11.8 %
[2017-01-10 05:27] LABS: BUN/Creatinine Ratio 7 (6-26); Blood Urea Nitrogen 8 mg/dL (8-26); Calcium 8.3 mg/dL (8.6-10.8); Carbon Dioxide 24 mEq/L (19-29); Chloride 103 mEq/L (98-109); Glucose 322 mg/dL (70-99); Magnesium 1.3 mg/dL (1.6-2.6); Osmolality,Calculated 295 (280-300); Phosphorous 2.3 mg/dL (2.3-4.7); Potassium 3.6 mEq/L (3.5-4.5); Sodium 137 mEq/L (136-145); eGFR For African Americans > 60 (> 60); eGFR For Non-African Americans > 60 (> 60)
[2017-01-10] MEDS: *HR* Heparin 5,000 UNIT/ML VIAL SQ SCH ×3 (05:48→20:16)
[2017-01-10] MEDS ORDERED: Magnesium Sulfate 2 GM in D5% in Water 100 ML IVPB ONE (06:08)
[2017-01-10] MEDS ORDERED: Insulin LISPRO 300 UNITS/3 ML VIAL SQ STA (06:08)
--- NOTE | 2017-01-10 14:24 | Internal Med Progress Note ---
<Kevin Chun - Last Filed: 01/10/17 16:30> Date of Encounter: 01/10/17 Time of Encounter: 08:30 - Assessment and plan (1) Uncontrolled diabetes mellitus Current Visit: Yes Status: Chronic Assessment and plan: likely type II; has not been on insulin for 1 month A1c is 11.8 Cont FSBS qACHS; change levemir to 10U qhs due to borderline hypoglycemia this AM; cont SSI Due to social factors, SW seeking placement at extended care facility Place consult for wound care for likely diabetic ulcers of LLE Plan DC on metformin Cont diabetic diet Qualifiers: Diabetes mellitus complication status: with hyperglycemia Diabetes mellitus senior living insulin use: without senior living use Qualified Code(s): E11.65 - Type 2 diabetes mellitus with hyperglycemia (2) Ulcer of lower extremity Current Visit: Yes Status: Acute Assessment and plan: Closed left lower extremity ulcer to anterior leg near distal tibia No evidence of drainage or necrosis wound care consulted Qualifiers: Qualified Code(s): L97.921 - Non-pressure chronic ulcer of unspecified part of left lower leg limited to breakdown of skin (3) Pancytopenia Current Visit: Yes Status: Chronic Assessment and plan: Patient has been recurrently pancytopenic in the past per lab records will recheck CBC in the a.m. and address accordingly (4) Homeless Current Visit: Yes Status: Chronic Assessment and plan: major contributing factor to poor control of DM SW seeking placement for extended care facility (5) Alcohol abuse Current Visit: No Status: Chronic Assessment and plan: states drinks 2-3 (24oz) beers a day and has been over the past month has not had anything to drink for 3-4 days has been entirely asymptomatic throughout ED and IP course (6) HTN (hypertension) Current Visit: Yes Status: Chronic Assessment and plan: hypertensive on initial admission currently normotensive on no medications continue to monitor consider pharmacologic intervention if elevated in any subsequent BP checks Qualifiers: Hypertension type: essential hypertension Qualified Code(s): I10 - Essential (primary) hypertension (7) DVT prophylaxis Current Visit: No Status: Acute Assessment and plan: cont sub q heparin - Time Spent With Patient less than 15 minutes - Subjective Interval history: Patient comfortable supine at time of initial encounter. No acute complaints at this time. Patient denies any symptoms including headache, vision change, chest pain, abdominal discomfort, nausea, vomiting, increased thirst, fevers, or weakness. Serum glucose stabilizing. Overnight course uneventful. VSS. Was given early AM dose of 10U Levemir and another 20U at about 6AM; most recent POC FSBS 73. Will decrease nightly Levemir to 10U. Placement in progress to [facility] in [place], [place]. - Constitutional Vitals: Temp Pulse Resp BP Pulse Ox 98.8 F 66 17 120/75 99 01/10/17 10:52 01/10/17 10:52 01/10/17 10:52 01/10/17 10:52 01/10/17 10:52 General appearance: Present: A&O X 3, pleasant, no acute distress, answers questions appropriately - Head Head exam: Present: atraumatic, normocephalic - Eye Eye exam: Present: PERRL, conjuntiva pink, sclera anicteric. Absent: conjunctival injection Pupils: Present: PERRL. Absent: miosis, mydriatic - Neck Neck exam general surgery: Present: supple, trachea midline - Respiratory Respiratory exam: Present: CTAB. Absent: accessory muscle use, rales, respiratory distress, rhonchi, wheezes - Cardiovascular Cardiovascular exam: Present: RRR, +S1, +S2. Absent: diastolic murmur, gallop, rubs, systolic murmur - GI/Abdominal GI/Abdominal exam: Present: normal bowel sounds, soft. Absent: distended, tenderness - Extremities Exam Extremities exam: Present: warm, radial pulses palpable and symmetrical. Absent : calf tenderness, cyanotic, pedal edema Additional comments: Multiple skin wounds to bilateral lower extremities newest of which is in the left anterior tibial region and is dry without any evidence of drainage or necrosis; no apparent cytolytic component. No pedal edema. DP pulses 2+ and equal bilaterally - Neurological Exam Neurological exam: Present: alert, oriented X3, no focal deficits. Absent: facial droop, speech deficit - Skin Skin exam: Present: dry, intact. Absent: cyanosis, diaphoretic, erythema, pallor Internal Medicine: Result - Labs CBC & Chem 7: 01/09/17 16:55 01/10/17 04:37 Labs: BMP 01/10/17 04:37 Sodium 137 Potassium 3.6 Chloride 103 Carbon Dioxide 24 BUN 8 Creatinine 1.10 Glucose 322 H Calcium 8.3 L Laboratory Last Values WBC 3.2 K/mcL (4.3-11.1) L 01/09/17 16:55 RBC 3.45 M/mcL (4.19-5.50) L 01/09/17 16:55 Hgb 9.7 g/dL (12.9-16.9) L 01/09/17 16:55 Hct 28.9 % (37.5-50.1) L 01/09/17 16:55 MCV 83.8 fL (83.0-100.0) 01/09/17 16:55 MCH 28.1 pg (28.0-33.3) 01/09/17 16:55 MCHC 33.6 g/dL (31.6-35.5) 01/09/17 16:55 RDW 12.7 % (11.5-14.5) 01/09/17 16:55 Plt Count 126 K/mcL (140-400) L 01/09/17 16:55 MPV 10.9 fL (9.4-12.4) 01/09/17 16:55 Immature Gran % 0.3 % (0-4) 01/09/17 16:55 Seg Neutrophils % 63.3 % 01/09/17 16:55 Lymphocytes % 26.2 % 01/09/17 16:55 Monocytes % 9.3 % 01/09/17 16:55 Eosinophils % 0.6 % 01/09/17 16:55 Basophils % 0.3 % 01/09/17 16:55 Neutrophils # 2.1 K/mcL (1.6-8.9) 01/09/17 16:55 Lymphocytes # 0.9 K/mcL (0.6-4.6) 01/09/17 16:55 Monocytes # 0.3 K/mcL (0.0-1.3) 01/09/17 16:55 Eosinophils # 0.0 K/mcL (0.0-0.6) 01/09/17 16:55 Basophils # 0.0 K/mcL (0.0-0.2) 01/09/17 16:55 Sodium 137 mEq/L (136-145) 01/10/17 04:37 Potassium 3.6 mEq/L (3.5-4.5) 01/10/17 04:37 Chloride 103 mEq/L (98-109) 01/10/17 04:37 Carbon Dioxide 24 mEq/L (19-29) 01/10/17 04:37 BUN 8 mg/dL (8-26) 01/10/17 04:37 Creatinine 1.10 mg/dL (0.72-1.25) 01/10/17 04:37 Est GFR ( Amer) > 60 (> 60) 01/10/17 04:37 Est GFR (Non-Af Amer) > 60 (> 60) 01/10/17 04:37 BUN/Creatinine Ratio 7 (6-26) 01/10/17 04:37 Glucose 322 mg/dL (70-99) H 01/10/17 04:37 POC Glucose 147 (58-89) H 01/10/17 07:47 Est Mean Plasma Glucose 292 mg/dl 01/10/17 04:37 Hemoglobin A1c 11.8 % (-5.6) H 01/10/17 04:37 Serum Osmolality 318 mOsm/kg (280-300) H 01/09/17 16:55 Calculated Osmolality 295 (280-300) 01/10/17 04:37 Calcium 8.3 mg/dL (8.6-10.8) L 01/10/17 04:37 Phosphorus 2.3 mg/dL (2.3-4.7) 01/10/17 04:37 Magnesium 1.3 mg/dL (1.6-2.6) L 01/10/17 04:37 Urine Color Yellow (Yellow) 01/09/17 17:46 Urine Clarity Clear (Clear) 01/09/17 17:46 Urine pH 6.5 pH Units (5.0-8.0) 01/09/17 17:46 Ur Specific [place] 1.028 (1.010-1.025) H 01/09/17 17:46 Urine Protein Negative mg/dL (Neg-Trace) 01/09/17 17:46 Urine Glucose (UA) >=1000 mg/dL (Normal) H 01/09/17 17:46 Urine Ketones Trace mg/dL (Negative) H 01/09/17 17:46 Urine Blood Negative (Negative) 01/09/17 17:46 Urine Nitrite Negative (Negative) 01/09/17 17:46 Urine Bilirubin Negative (Negative) 01/09/17 17:46 Urine Urobilinogen Normal mg/dL (Normal) 01/09/17 17:46 Ur Leukocyte Esterase Negative (Negative) 01/09/17 17:46 Ur Culture Indicated? NO (NO) 01/09/17 17:46 Consult Discharge Plan - Plan Referrals: NONE,PCP [Primary Care Provider] - <Jesus Sanchez - Last Filed: 01/10/17 17:05> Date of Encounter: 01/10/17 - Constitutional Vitals: Temp Pulse Resp BP Pulse Ox 98.9 F 78 17 147/84 99 01/10/17 16:10 01/10/17 16:10 01/10/17 16:10 01/10/17 16:10 01/10/17 16:10 Internal Medicine: Result - Labs CBC & Chem 7: 01/09/17 16:55 01/10/17 04:37 Labs: BMP 01/10/17 04:37 Sodium 137 Potassium 3.6 Chloride 103 Carbon Dioxide 24 BUN 8 Creatinine 1.10 Glucose 322 H Calcium 8.3 L - Attending Attestation I examined this patient on 01/10/17 and my medical decision-making was reviewed with the Resident Physician. I agree with the documented findings, disposition and treatment plan as described except to the extent set forth below. 61 M with PMH of DM, likely Type II, not compliant with insulin, and homeless, also polysubstance abuse, admitted and being managed for uncontrolled DM with hyperglycemia No new complains on eval. Exam with flat affect, Chest is CTAB, HS S1, S2 only, no m/g/r, abdomen is benign. Extremities with healed LLE ulcer Labs and Imaging reviewed-A1C 11. Mag 1.3. Continue levemir, start from 01/11,monitor for hypoglycemia, SW eval for placement to SNF. Wound care for LE ulcers. Low risk for alcohol withdrawal, monitor closely Rest as in resident physicians documentation
[2017-01-11] MEDS: *HR* Heparin 5,000 UNIT/ML VIAL SQ SCH ×3 (05:45→21:24)
[2017-01-11 06:04] LABS: BUN/Creatinine Ratio 8 (6-26); Blood Urea Nitrogen 9 mg/dL (8-26); Calcium 8.2 mg/dL (8.6-10.8); Carbon Dioxide 26 mEq/L (19-29); Chloride 101 mEq/L (98-109); Glucose 472 mg/dL (70-99); Magnesium 1.3 mg/dL (1.6-2.6); Osmolality,Calculated 297 (280-300); Potassium 3.8 mEq/L (3.5-4.5); Sodium 134 mEq/L (136-145); eGFR For African Americans > 60 (> 60); eGFR For Non-African Americans > 60 (> 60)
[2017-01-11 06:23] LABS: Basophils % 0.3 %; Eosinophils % 0.6 %; Hematocrit 27.7 % (37.5-50.1); Hemoglobin 9.3 g/dL (12.9-16.9); Immature Granulocytes % 0.6 % (0-4); Lymphocytes # 1.1 K/mcL (0.6-4.6); Lymphocytes % 34.3 %; Mean Corpuscular HGB Conc 33.6 g/dL (31.6-35.5); Mean Corpuscular Hemoglobin 27.5 pg (28.0-33.3); Mean Platelet Volume 10.2 fL (9.4-12.4); Monocytes # 0.3 K/mcL (0.0-1.3); Monocytes % 9.6 %; Neutrophils # 1.7 K/mcL (1.6-8.9); Platelet Count 135 K/mcL (140-400); Red Blood Count 3.38 M/mcL (4.19-5.50); Red Cell Distribution Width 12.5 % (11.5-14.5); Segmented Neutrophils % 54.6 %
[2017-01-11] MEDS ORDERED: Magnesium Sulfate 2 GM in D5% in Water 100 ML IVPB ONE ×2 (07:48→11:00)
[2017-01-11] MEDS: Insulin LISPRO 300 UNITS/3 ML VIAL SQ SCH ×7 (08:37→21:24)
[2017-01-11] MEDS: Insulin DETEMIR 100 UNIT/ML X5UNITS SQ SCH ×2 (08:37→21:56)
--- NOTE | 2017-01-11 09:09 | Internal Med Progress Note ---
<Jesus Sanchez - Last Filed: 01/11/17 12:25> Date of Encounter: 01/11/17 - Constitutional Vitals: Temp Pulse Resp BP Pulse Ox 98.2 F 83 18 127/80 96 01/11/17 11:18 01/11/17 11:18 01/11/17 11:18 01/11/17 11:18 01/11/17 11:18 Internal Medicine: Result - Labs CBC & Chem 7: 01/11/17 05:45 01/11/17 05:45 Labs: Short CBC 01/11/17 Range/Units 05:45 WBC 3.1 L (4.3-11.1) K/mcL Hgb 9.3 L (12.9-16.9) g/dL Hct 27.7 L (37.5-50.1) % Plt Count 135 L (140-400) K/mcL Neutrophils # 1.7 (1.6-8.9) K/mcL BMP 01/11/17 05:45 Sodium 134 L Potassium 3.8 Chloride 101 Carbon Dioxide 26 BUN 9 Creatinine 1.19 Glucose 472 H Calcium 8.2 L Consult Discharge Plan - Plan Referrals: NONE,PCP [Primary Care Provider] - ([facility] [phone]/ patient is from [facility]) - Attending Attestation I examined this patient on 01/11/17 and my medical decision-making was reviewed with the Resident Physician. I agree with the documented findings, disposition and treatment plan as described except to the extent set forth below. 61 M with PMH of DM, likely Type II, not compliant with insulin, and homeless, also polysubstance abuse, admitted and being managed for uncontrolled DM with hyperglycemia No new complains on eval. Exam with flat affect, Chest is CTAB, HS S1, S2 only, no m/g/r, abdomen is benign. Extremities with healed ulcers bilaterally Labs and Imaging reviewed-A1C 11. Mag 1.3. Continue levemir, add lispro, monitor FS. Replace Mag with 4g.Wound care for LE ulcers. Low risk for alcohol withdrawal, monitor closely Medically stable to be discharged, awaiting SNF placement Rest as in resident physicians documentation <Kevin Chun - Last Filed: 01/11/17 17:58> Date of Encounter: 01/11/17 Time of Encounter: 09:00 - Assessment and plan (1) Uncontrolled diabetes mellitus Current Visit: Yes Status: Chronic Assessment and plan: Still asymptomatic FSBG continues to be somewhat labile with borderline hypoglycemia followed my continued FSBS into 300s Changed SSI to high dose Consider additional intermediate acting insulin Continue with plan to initiate Levemir 10U hs beginning this evening Continue current FSBG checks qACHS Continue diabetic diet Diabetic education consult placed Awaiting SW note regarding NH placement Upon ultimate discharge, will likely start patient on oral antihyperglycemic Qualifiers: Diabetes mellitus complication status: with hyperglycemia Diabetes mellitus fci insulin use: without rodent exterminator use Qualified Code(s): E11.65 - Type 2 diabetes mellitus with hyperglycemia (2) Ulcer of lower extremity Current Visit: Yes Status: Acute Assessment and plan: Awaiting wound care evaluation Lesions of LLE are dry, without purulent drainage, and without apparent necrosis on exam this AM Continue primary management of DM as above Qualifiers: Laterality: left Qualified Code(s): L97.921 - Non-pressure chronic ulcer of unspecified part of left lower leg limited to breakdown of skin (3) Pancytopenia Current Visit: Yes Status: Chronic Assessment and plan: AM labs demonstrate persistent but stable pancytopenia from yesterday Patient has had intermittent pancytopenic presentations in the past with interrim normal cell counts Patient might benefit from hematology consult on outpatient basis; no further work up will be pursued at this time Continue CBC checks qAM (4) Homeless Current Visit: Yes Status: Chronic Assessment and plan: Likely significant social limiting factor to all facets of medical care SW seeking placement for NH; awaiting more information from them at present (5) Alcohol abuse Current Visit: No Status: Chronic Assessment and plan: Denies intake for several days prior to admission Continues to be asymptomatic Onset of withdrawal unlikely at this point (6) HTN (hypertension) Current Visit: Yes Status: Chronic Assessment and plan: Continues to have elevated BP Will start on Lisinopril 5mg PO daily Qualifiers: Hypertension type: essential hypertension Qualified Code(s): I10 - Essential (primary) hypertension (7) DVT prophylaxis Current Visit: No Status: Acute Assessment and plan: cont subQ heparin - Subjective Interval history: Symptomatically stable with no new complaints. FSBG has been increasing since prior episode of borderline hypoglycemia (397 at 07:59). Changed to high dose SSI. Correcting Mg++ via IV. Mildly hypertensive on shift vitals. Awaiting wound care consult note and SW note regarding NH placement. - Constitutional Vitals: Temp Pulse Resp BP Pulse Ox 99.0 F 73 18 138/85 97 01/11/17 07:46 01/11/17 07:46 01/11/17 07:46 01/11/17 07:46 01/11/17 07:46 General appearance: Present: A&O X 3, pleasant, no acute distress, answers questions appropriately - Head Head exam: Present: atraumatic, normocephalic - Eye Eye exam: Present: PERRL, conjuntiva pink, sclera anicteric - Neck Neck exam general surgery: Present: supple, trachea midline - Respiratory Respiratory exam: Present: CTAB. Absent: accessory muscle use, rales, respiratory distress, rhonchi, wheezes - Cardiovascular Cardiovascular exam: Present: RRR, +S1, +S2. Absent: diastolic murmur, gallop, rubs, systolic murmur - GI/Abdominal GI/Abdominal exam: Present: normal bowel sounds, soft, no peritoneal signs. Absent: distended, firm, guarding, rebound, rigid, tenderness - Extremities Exam Extremities exam: Present: warm, radial pulses palpable and symmetrical. Absent : calf tenderness, cyanotic, pedal edema Additional comments: stable distal LLE lesions x2; dry/closed without drainage or obvious necrosis - Neurological Exam Neurological exam: Present: alert, oriented X3, no focal deficits. Absent: facial droop, speech deficit - Skin Skin exam: Present: dry, intact, normal color. Absent: cyanosis, diaphoretic Internal Medicine: Result - Labs CBC & Chem 7: 01/11/17 05:45 01/11/17 05:45 Labs: Short CBC 01/11/17 Range/Units 05:45 WBC 3.1 L (4.3-11.1) K/mcL Hgb 9.3 L (12.9-16.9) g/dL Hct 27.7 L (37.5-50.1) % Plt Count 135 L (140-400) K/mcL Neutrophils # 1.7 (1.6-8.9) K/mcL BMP 01/11/17 05:45 Sodium 134 L Potassium 3.8 Chloride 101 Carbon Dioxide 26 BUN 9 Creatinine 1.19 Glucose 472 H Calcium 8.2 L Laboratory Last Values WBC 3.1 K/mcL (4.3-11.1) L 01/11/17 05:45 RBC 3.38 M/mcL (4.19-5.50) L 01/11/17 05:45 Hgb 9.3 g/dL (12.9-16.9) L 01/11/17 05:45 Hct 27.7 % (37.5-50.1) L 01/11/17 05:45 MCV 82.0 fL (83.0-100.0) L 01/11/17 05:45 MCH 27.5 pg (28.0-33.3) L 01/11/17 05:45 MCHC 33.6 g/dL (31.6-35.5) 01/11/17 05:45 RDW 12.5 % (11.5-14.5) 01/11/17 05:45 Plt Count 135 K/mcL (140-400) L 01/11/17 05:45 MPV 10.2 fL (9.4-12.4) 01/11/17 05:45 Immature Gran % 0.6 % (0-4) 01/11/17 05:45 Seg Neutrophils % 54.6 % 01/11/17 05:45 Lymphocytes % 34.3 % 01/11/17 05:45 Monocytes % 9.6 % 01/11/17 05:45 Eosinophils % 0.6 % 01/11/17 05:45 Basophils % 0.3 % 01/11/17 05:45 Neutrophils # 1.7 K/mcL (1.6-8.9) 01/11/17 05:45 Lymphocytes # 1.1 K/mcL (0.6-4.6) 01/11/17 05:45 Monocytes # 0.3 K/mcL (0.0-1.3) 01/11/17 05:45 Eosinophils # 0.0 K/mcL (0.0-0.6) 01/11/17 05:45 Basophils # 0.0 K/mcL (0.0-0.2) 01/11/17 05:45 Sodium 134 mEq/L (136-145) L 01/11/17 05:45 Potassium 3.8 mEq/L (3.5-4.5) 01/11/17 05:45 Chloride 101 mEq/L (98-109) 01/11/17 05:45 Carbon Dioxide 26 mEq/L (19-29) 01/11/17 05:45 BUN 9 mg/dL (8-26) 01/11/17 05:45 Creatinine 1.19 mg/dL (0.72-1.25) 01/11/17 05:45 Est GFR ( Amer) > 60 (> 60) 01/11/17 05:45 Est GFR (Non-Af Amer) > 60 (> 60) 01/11/17 05:45 BUN/Creatinine Ratio 8 (6-26) 01/11/17 05:45 Glucose 472 mg/dL (70-99) H 01/11/17 05:45 POC Glucose 348 (58-89) H 01/10/17 19:49 Est Mean Plasma Glucose 292 mg/dl 01/10/17 04:37 Hemoglobin A1c 11.8 % (-5.6) H 01/10/17 04:37 Serum Osmolality 318 mOsm/kg (280-300) H 01/09/17 16:55 Calculated Osmolality 297 (280-300) 01/11/17 05:45 Calcium 8.2 mg/dL (8.6-10.8) L 01/11/17 05:45 Phosphorus 2.3 mg/dL (2.3-4.7) 01/10/17 04:37 Magnesium 1.3 mg/dL (1.6-2.6) L 01/11/17 05:45 Urine Color Yellow (Yellow) 01/09/17 17:46 Urine Clarity Clear (Clear) 01/09/17 17:46 Urine pH 6.5 pH Units (5.0-8.0) 01/09/17 17:46 Ur Specific [place] 1.028 (1.010-1.025) H 01/09/17 17:46 Urine Protein Negative mg/dL (Neg-Trace) 01/09/17 17:46 Urine Glucose (UA) >=1000 mg/dL (Normal) H 01/09/17 17:46 Urine Ketones Trace mg/dL (Negative) H 01/09/17 17:46 Urine Blood Negative (Negative) 01/09/17 17:46 Urine Nitrite Negative (Negative) 01/09/17 17:46 Urine Bilirubin Negative (Negative) 01/09/17 17:46 Urine Urobilinogen Normal mg/dL (Normal) 01/09/17 17:46 Ur Leukocyte Esterase Negative (Negative) 01/09/17 17:46 Ur Culture Indicated? NO (NO) 01/09/17 17:46
[2017-01-11] MEDS: Leptospermum Honey GEL 1 APPL/5 ML MLS TP SCH ×2 (13:41→21:25)
--- NOTE | 2017-01-11 13:56 | Discharge Summary ---
Date of Encounter: 01/11/17 Time of Encounter: 09:00 - Discharge Diagnosis (1) Uncontrolled diabetes mellitus Priority: Primary Status: Chronic Qualifiers: Diabetes mellitus complication status: with hyperglycemia Diabetes mellitus jail insulin use: without jail use (2) Ulcer of lower extremity Priority: Secondary Status: Acute Qualifiers: Laterality: left (3) Pancytopenia Priority: Secondary Status: Chronic (4) Homeless Priority: Primary Status: Chronic (5) Alcohol abuse Priority: Primary Status: Chronic (6) HTN (hypertension) Priority: Primary Status: Chronic Qualifiers: Hypertension type: essential hypertension Qualified Code(s): I10 - Essential (primary) hypertension (7) DVT prophylaxis Priority: Primary Status: Acute - Discharge Medications Home Medications: No Known Home Drugs 01/09/17 [History] Allergies/Adverse Reactions: 3 Allergy/AdvReac Type Severity Reaction Status Date / Time No Known Allergies Allergy Verified 08/02/16 14:50 Date of admission: 01/09/17 19:32 Primary care physician: Emilia Kendrick Consults: 01/09/17 19:35 Consult to [employer] [facility] [CONS] Routine Reason for SW Consult: pls assist with home situation/placement, thanks 01/10/17 09:30 Consult to Wound Care [CONS] Routine Reason for Consult: DM-I with multiple LE ulcers (none apparently open) Call Completed: No 01/10/17 14:43 Consult to Patient Registration Specialist [CONS] Routine Comment: Reason for Consult: uncontrolled DM; has not been on any medications x1 month Discharging clinician: Kevin Chun Anticipated date of discharge: 01/11/17 - Patient Status Condition: Good - Discharge Instructions Follow Up With: NONE,PCP [Primary Care Provider] - ([facility] [phone]/ patient is from [facility]) Hospital course: Mr. Proctor is a 61 year old male - Time Spent with Patient Total time spent providing and/or coordinating discharge services: - Constitutional Vitals: Temp Pulse Resp BP Pulse Ox 98.2 F 83 18 127/80 96 01/11/17 11:18 01/11/17 11:18 01/11/17 11:18 01/11/17 11:18 01/11/17 11:18 General appearance: Present: A&O X 3, pleasant, no acute distress, answers questions appropriately - VTE Documentation of Mechanical Device: Intermittent pneumatic compression device
[2017-01-11] MEDS ORDERED: Insulin DETEMIR 100 UNIT/ML X5UNITS SQ SCH (21:00)
[2017-01-12] MEDS ORDERED: *HR* OxyCODONE/APAP 5/325 TABLET PO ONE (04:02)
[2017-01-12] MEDS: *HR* Heparin 5,000 UNIT/ML VIAL SQ SCH ×3 (05:56→20:06)
[2017-01-12 06:34] LABS: Basophils % 0.3 %; Eosinophils % 1.2 %; Hematocrit 28.9 % (37.5-50.1); Immature Granulocytes % 0.6 % (0-4); Lymphocytes % 28.8 %; Mean Corpuscular HGB Conc 34.6 g/dL (31.6-35.5); Mean Corpuscular Hemoglobin 28.3 pg (28.0-33.3); Mean Corpuscular Volume 81.9 fL (83.0-100.0); Mean Platelet Volume 9.9 fL (9.4-12.4); Monocytes # 0.3 K/mcL (0.0-1.3); Monocytes % 10.1 %; Platelet Count 139 K/mcL (140-400); Red Blood Count 3.53 M/mcL (4.19-5.50); Red Cell Distribution Width 12.6 % (11.5-14.5)
[2017-01-12 06:59] LABS: BUN/Creatinine Ratio 10 (6-26); Blood Urea Nitrogen 11 mg/dL (8-26); Calcium 8.4 mg/dL (8.6-10.8); Carbon Dioxide 29 mEq/L (19-29); Chloride 100 mEq/L (98-109); Glucose 479 mg/dL (70-99); Magnesium 1.6 mg/dL (1.6-2.6); Osmolality,Calculated 299 (280-300); Potassium 3.8 mEq/L (3.5-4.5); Sodium 134 mEq/L (136-145); eGFR For African Americans > 60 (> 60); eGFR For Non-African Americans > 60 (> 60)
[2017-01-12] MEDS: Insulin LISPRO 300 UNITS/3 ML VIAL SQ SCH ×7 (08:25→20:06)
[2017-01-12] MEDS: Insulin DETEMIR 100 UNIT/ML X5UNITS SQ SCH ×2 (09:49→20:06)
[2017-01-12] MEDS: Leptospermum Honey GEL 1 APPL/5 ML MLS TP SCH ×2 (09:51→23:31)
--- NOTE | 2017-01-12 18:47 | Internal Med Progress Note ---
Date of Encounter: 01/12/17 Time of Encounter: 11:00 - Assessment and plan (1) Uncontrolled diabetes mellitus Current Visit: Yes Status: Chronic Assessment and plan: Continue Levemir 10 Continue diabetic diet Diabetic education consult placed Awaiting note regarding NH placement Upon ultimate discharge, will likely start patient on oral antihyperglycemic Qualifiers: Diabetes mellitus type: type 2 Diabetes mellitus complication status: with hyperglycemia Diabetes mellitus long-term insulin use: without local intermodal truck driver use Qualified Code(s): E11.65 - Type 2 diabetes mellitus with hyperglycemia (2) Alcoholism /alcohol abuse Current Visit: No Status: Chronic Assessment and plan: -Patient was on CIWA precautions (3) HTN (hypertension) Current Visit: Yes Status: Chronic Assessment and plan: Continue Lisinopril Qualifiers: Hypertension type: essential hypertension Qualified Code(s): I10 - Essential (primary) hypertension (4) Homeless Current Visit: Yes Status: Chronic (5) DVT prophylaxis Current Visit: No Status: Acute Assessment and plan: cont subQ heparin - Constitutional Vitals: Temp Pulse Resp BP Pulse Ox 98.7 F 84 18 132/89 97 01/12/17 16:07 01/12/17 16:07 01/12/17 16:07 01/12/17 16:07 01/12/17 16:07 General appearance: Present: A&O X 3, pleasant, no acute distress, answers questions appropriately - Respiratory Respiratory exam: Present: CTAB. Absent: accessory muscle use, rales, rhonchi, wheezes - Cardiovascular Cardiovascular exam: Present: RRR, +S1, +S2. Absent: diastolic murmur, gallop, rubs, systolic murmur Internal Medicine: Result - Labs CBC & Chem 7: 01/12/17 06:07 01/12/17 06:07 Labs: Short CBC 01/12/17 Range/Units 06:07 WBC 3.4 L (4.3-11.1) K/mcL Hgb 10.0 L (12.9-16.9) g/dL Hct 28.9 L (37.5-50.1) % Plt Count 139 L (140-400) K/mcL Neutrophils # 2.0 (1.6-8.9) K/mcL BMP 01/12/17 06:07 Sodium 134 L Potassium 3.8 Chloride 100 Carbon Dioxide 29 BUN 11 Creatinine 1.12 Glucose 479 H Calcium 8.4 L - VTE Documentation of Mechanical Device: Intermittent pneumatic compression device Consult Discharge Plan - Plan Referrals: NONE,PCP [Primary Care Provider] - ([facility] [phone]/ patient is from [facility])
[2017-01-13] MEDS: *HR* Heparin 5,000 UNIT/ML VIAL SQ SCH ×3 (04:16→21:36)
[2017-01-13] MEDS: Insulin LISPRO 300 UNITS/3 ML VIAL SQ SCH ×7 (09:10→21:34)
[2017-01-13] MEDS: Insulin DETEMIR 100 UNIT/ML X5UNITS SQ SCH ×2 (09:11→21:35)
[2017-01-13] MEDS: Leptospermum Honey GEL 1 APPL/5 ML MLS TP SCH ×2 (10:32→21:45)
--- NOTE | 2017-01-13 15:10 | Internal Med Progress Note ---
Date of Encounter: 01/13/17 Time of Encounter: 11:00 - Assessment and plan (1) Uncontrolled diabetes mellitus Current Visit: Yes Status: Chronic Assessment and plan: -Blood glucose level still uncontrolled -Will increase Levemir to 20 u twice daily and restart patient on metformin 1000 mg daily -Reevaluate on 01/14/17 Qualifiers: Diabetes mellitus type: type 2 Diabetes mellitus complication status: with hyperglycemia Diabetes mellitus alf insulin use: without alf use Qualified Code(s): E11.65 - Type 2 diabetes mellitus with hyperglycemia (2) Alcoholism /alcohol abuse Current Visit: No Status: Chronic Assessment and plan: -Patient was on CIWA precautions (3) HTN (hypertension) Current Visit: Yes Status: Chronic Assessment and plan: -Blood pressures controlled; continue Lisinopril Qualifiers: Hypertension type: essential hypertension Qualified Code(s): I10 - Essential (primary) hypertension (4) Homeless Current Visit: Yes Status: Chronic Assessment and plan: Likely significant social limiting factor to all facets of medical care SW seeking placement for NH; awaiting more information from them at present (5) DVT prophylaxis Current Visit: No Status: Acute Assessment and plan: cont subQ heparin - Subjective Interval history: Patient with no issues or complaints this morning; blood glucose level still uncontrolled. - Constitutional Vitals: Temp Pulse Resp BP Pulse Ox 98.2 F 80 16 123/77 90 01/13/17 13:07 01/13/17 13:07 01/13/17 13:07 01/13/17 13:07 01/13/17 13:07 General appearance: Present: A&O X 3, pleasant, no acute distress, answers questions appropriately - Respiratory Respiratory exam: Present: CTAB. Absent: accessory muscle use, rales, rhonchi, wheezes - Cardiovascular Cardiovascular exam: Present: RRR, +S1, +S2. Absent: diastolic murmur, gallop, rubs, systolic murmur Internal Medicine: Result - Labs CBC & Chem 7: 01/12/17 06:07 01/12/17 06:07 - VTE Documentation of Mechanical Device: Intermittent pneumatic compression device Consult Discharge Plan - Plan Referrals: NONE,PCP [Primary Care Provider] - ([facility] [phone]/ patient is from [facility])
[2017-01-13] MEDS ORDERED: Ibuprofen 800 MG TABLET PO STA (17:05)
[2017-01-13] MEDS: *HR* Metformin 500 MG TABLET PO SCH (17:07)
[2017-01-14] MEDS: *HR* Heparin 5,000 UNIT/ML VIAL SQ SCH ×3 (06:12→20:30)
[2017-01-14] MEDS ORDERED: Ibuprofen 800 MG TABLET PO STA (08:02)
[2017-01-14] MEDS: Insulin LISPRO 300 UNITS/3 ML VIAL SQ SCH ×7 (08:33→20:30)
[2017-01-14] MEDS: Insulin DETEMIR 100 UNIT/ML X5UNITS SQ SCH ×2 (08:33→20:31)
[2017-01-14] MEDS: *HR* Metformin 500 MG TABLET PO SCH ×2 (08:33→17:04)
[2017-01-14] MEDS: Leptospermum Honey GEL 1 APPL/5 ML MLS TP SCH ×2 (08:34→20:31)
[2017-01-14 09:14] LABS: Basophils % 0.3 %; Eosinophils # 0.1 K/mcL (0.0-0.6); Eosinophils % 1.7 %; Hematocrit 30.1 % (37.5-50.1); Immature Granulocytes % 0.6 % (0-4); Lymphocytes # 1.2 K/mcL (0.6-4.6); Lymphocytes % 32.8 %; Mean Corpuscular HGB Conc 33.2 g/dL (31.6-35.5); Mean Corpuscular Hemoglobin 27.8 pg (28.0-33.3); Mean Corpuscular Volume 83.6 fL (83.0-100.0); Monocytes # 0.4 K/mcL (0.0-1.3); Monocytes % 11.8 %; Neutrophils # 1.9 K/mcL (1.6-8.9); Platelet Count 133 K/mcL (140-400); Red Cell Distribution Width 13.1 % (11.5-14.5); Segmented Neutrophils % 52.8 %
[2017-01-14 09:41] LABS: BUN/Creatinine Ratio 13 (6-26); Blood Urea Nitrogen 15 mg/dL (8-26); Calcium 8.6 mg/dL (8.6-10.8); Carbon Dioxide 26 mEq/L (19-29); Chloride 101 mEq/L (98-109); Glucose 393 mg/dL (70-99); Osmolality,Calculated 297 (280-300); Potassium 4.1 mEq/L (3.5-4.5); Sodium 135 mEq/L (136-145); eGFR For African Americans > 60 (> 60); eGFR For Non-African Americans > 60 (> 60)
[2017-01-14 09:42] LABS: Chol/HDL Ratio 3.6 (0-4.9)
--- NOTE | 2017-01-14 17:23 | Internal Med Progress Note ---
Date of Encounter: 01/14/17 Time of Encounter: 11:00 - Assessment and plan (1) Uncontrolled diabetes mellitus Current Visit: Yes Status: Chronic Assessment and plan: -Blood glucose level still uncontrolled due to noncompliance of diabetic diet during this hospitalization -Will continue current management and counselled patient and nursing staff about importance of compliance to diabetic diet. -Reevaluate on 01/15/17 Qualifiers: Diabetes mellitus type: type 2 Diabetes mellitus complication status: with hyperglycemia Diabetes mellitus residential insulin use: without residential use Qualified Code(s): E11.65 - Type 2 diabetes mellitus with hyperglycemia (2) Alcoholism /alcohol abuse Current Visit: No Status: Chronic Assessment and plan: -Patient was on CIWA precautions (3) HTN (hypertension) Current Visit: Yes Status: Chronic Assessment and plan: -Blood pressures controlled; continue Lisinopril Qualifiers: Hypertension type: essential hypertension Qualified Code(s): I10 - Essential (primary) hypertension (4) Homeless Current Visit: Yes Status: Chronic Assessment and plan: Likely significant social limiting factor to all facets of medical care SW seeking placement for NH; awaiting more information from them at present (5) DVT prophylaxis Current Visit: No Status: Acute Assessment and plan: cont subQ heparin - Subjective Interval history: Patient with no issues or complaints this morning; blood glucose level still uncontrolled due to noncompliance of diabetic diet during this hospital stay - Constitutional Vitals: Temp Pulse Resp BP Pulse Ox 98.0 F 79 16 115/74 99 01/14/17 15:00 01/14/17 15:00 01/14/17 15:00 01/14/17 15:00 01/14/17 15:00 General appearance: Present: A&O X 3, pleasant, no acute distress, answers questions appropriately - Respiratory Respiratory exam: Present: CTAB. Absent: accessory muscle use, rales, rhonchi, wheezes - Cardiovascular Cardiovascular exam: Present: RRR, +S1, +S2. Absent: diastolic murmur, gallop, rubs, systolic murmur Internal Medicine: Result - Labs CBC & Chem 7: 01/14/17 08:51 01/14/17 08:51 Labs: Short CBC 01/14/17 Range/Units 08:51 WBC 3.6 L (4.3-11.1) K/mcL Hgb 10.0 L (12.9-16.9) g/dL Hct 30.1 L (37.5-50.1) % Plt Count 133 L (140-400) K/mcL Neutrophils # 1.9 (1.6-8.9) K/mcL BMP 01/14/17 08:51 Sodium 135 L Potassium 4.1 Chloride 101 Carbon Dioxide 26 BUN 15 Creatinine 1.13 Glucose 393 H Calcium 8.6 - VTE Documentation of Mechanical Device: Intermittent pneumatic compression device Consult Discharge Plan - Plan Referrals: NONE,PCP [Primary Care Provider] - ([facility] [phone]/ patient is from [facility])
[2017-01-14] MEDS: Ibuprofen 600 MG TABLET PO PRN (22:39)
[2017-01-15] MEDS: *HR* Heparin 5,000 UNIT/ML VIAL SQ SCH ×3 (05:33→21:12)
[2017-01-15] MEDS: Ibuprofen 600 MG TABLET PO PRN (05:43)
[2017-01-15] MEDS: *HR* Metformin 500 MG TABLET PO SCH ×2 (07:49→17:02)
[2017-01-15] MEDS: Insulin LISPRO 300 UNITS/3 ML VIAL SQ SCH ×7 (07:49→21:37)
[2017-01-15] MEDS: Insulin DETEMIR 100 UNIT/ML X5UNITS SQ SCH ×2 (08:52→21:36)
[2017-01-15] MEDS: Leptospermum Honey GEL 1 APPL/5 ML MLS TP SCH ×2 (09:00→21:12)
[2017-01-15] MEDS: Acetaminophen 325 MG TABLET PO PRN ×2 (12:01→21:19)
--- NOTE | 2017-01-15 12:34 | Internal Med Progress Note ---
Date of Encounter: 01/15/17 Time of Encounter: 12:31 - Assessment and plan (1) Alcoholism /alcohol abuse Current Visit: Yes Status: Chronic Assessment and plan: -Patient was on CIWA precautions (2) Polysubstance abuse Current Visit: Yes Status: Chronic Assessment and plan: Encourage cessation (3) Diabetes Current Visit: Yes Status: Chronic Assessment and plan: Uncontrolled A1C 11 Continue levemir, add prandial insulin FS ACHS Continue Metformin Qualifiers: Diabetes mellitus type: type 2 Diabetes mellitus complication status: with skin complications Diabetes mellitus complication detail: with foot ulcer Diabetes mellitus retirement insulin use: with retirement use Qualified Code(s) : E11.621 - Type 2 diabetes mellitus with foot ulcer; L97.509 - Non-pressure chronic ulcer of other part of unspecified foot with unspecified severity; L97.509 - Non-pressure chronic ulcer of other part of unspecified foot with unspecified severity; L97.509 - Non-pressure chronic ulcer of other part of unspecified foot with unspecified severity; L97.509 - Non-pressure chronic ulcer of other part of unspecified foot with unspecified severity; Z79.4 - intermediate (current) use of insulin; Z79.4 - long term care pharmacist (current) use of insulin; Z79.4 - intermediate (current) use of insulin; Z79.4 - intermediate (current) use of insulin (4) Hyperglycemia Current Visit: Yes Status: Acute Assessment and plan: As above (5) GERD (gastroesophageal reflux disease) Current Visit: Yes Status: Chronic Assessment and plan: Continue current meds Qualifiers: Esophagitis presence: without esophagitis Qualified Code(s): K21.9 - Gastro -esophageal reflux disease without esophagitis (6) Tobacco abuse Current Visit: Yes Status: Chronic Assessment and plan: Encourage cessation (7) Hepatitis C Current Visit: Yes Status: Chronic Assessment and plan: Referral for treatment as outpatient by PCP Qualifiers: Viral hepatitis chronicity: chronic Hepatic coma status: without hepatic coma Qualified Code(s): B18.2 - Chronic viral hepatitis C - Subjective Interval history: Seen and evaluated No new complains Awaiting placement - Constitutional Vitals: Temp Pulse Resp BP Pulse Ox 98.2 F 87 12 114/82 99 01/15/17 11:20 01/15/17 11:20 01/15/17 11:20 01/15/17 11:20 01/15/17 11:20 General appearance: Present: A&O X 3, pleasant, no acute distress, answers questions appropriately - Head Head exam: Present: atraumatic, normocephalic - Eye Eye exam: Present: PERRL, conjuntiva pink, sclera anicteric Pupils: Present: PERRL - Neck Neck exam general surgery: Present: supple, trachea midline. Absent: lymphadenopathy - Respiratory Respiratory exam: Present: CTAB. Absent: accessory muscle use, rales, rhonchi, wheezes - Cardiovascular Cardiovascular exam: Present: RRR, +S1, +S2. Absent: diastolic murmur, gallop, rubs, systolic murmur - GI/Abdominal GI/Abdominal exam: Present: normal bowel sounds, soft, no peritoneal signs. Absent: distended, tenderness - Extremities Exam Extremities exam: Present: warm, radial pulses palpable and symmetrical. Absent : calf tenderness, cyanotic, pedal edema Additional comments: chronic leg ulcers wrapped in dressing, clean and dry - Neurological Exam Neurological exam: Present: alert, CN II-XII intact, oriented X3, no focal deficits. Absent: pronater drift, facial droop, speech deficit - Skin Skin exam: Present: dry, intact Internal Medicine: Result - Labs CBC & Chem 7: 01/14/17 08:51 01/14/17 08:51 - VTE Documentation of Mechanical Device: Intermittent pneumatic compression device Consult Discharge Plan - Plan Referrals: NONE,PCP [Primary Care Provider] - ([facility] [phone]/ patient is from [facility])
[2017-01-16 06:20] LABS: BUN/Creatinine Ratio 16 (6-26); Blood Urea Nitrogen 15 mg/dL (8-26); Calcium 8.7 mg/dL (8.6-10.8); Carbon Dioxide 27 mEq/L (19-29); Chloride 104 mEq/L (98-109); Glucose 214 mg/dL (70-99); Osmolality,Calculated 293 (280-300); Potassium 4.1 mEq/L (3.5-4.5); Sodium 138 mEq/L (136-145); eGFR For African Americans > 60 (> 60); eGFR For Non-African Americans > 60 (> 60)
[2017-01-16] MEDS: *HR* Heparin 5,000 UNIT/ML VIAL SQ SCH ×3 (06:20→20:41)
[2017-01-16] MEDS: Acetaminophen 325 MG TABLET PO PRN ×2 (06:24→12:34)
[2017-01-16] MEDS: Insulin DETEMIR 100 UNIT/ML X5UNITS SQ SCH ×2 (08:08→20:41)
[2017-01-16] MEDS: Insulin LISPRO 300 UNITS/3 ML VIAL SQ SCH ×7 (08:08→20:40)
[2017-01-16] MEDS: *HR* Metformin 500 MG TABLET PO SCH ×2 (08:08→17:40)
[2017-01-16] MEDS: Leptospermum Honey GEL 1 APPL/5 ML MLS TP SCH ×2 (09:44→20:40)
--- NOTE | 2017-01-16 09:53 | Internal Med Progress Note ---
Date of Encounter: 01/16/17 Time of Encounter: 09:00 - Assessment and plan (1) Alcoholism /alcohol abuse Current Visit: Yes Status: Chronic Assessment and plan: -Patient was on CIWA precautions (2) Polysubstance abuse Current Visit: Yes Status: Chronic Assessment and plan: Encourage cessation (3) Diabetes Current Visit: Yes Status: Chronic Assessment and plan: Uncontrolled A1C 11 Continue levemir, add prandial insulin FS ACHS Continue Metformin Qualifiers: Diabetes mellitus type: type 2 Diabetes mellitus complication status: with skin complications Diabetes mellitus complication detail: with foot ulcer Diabetes mellitus fdc insulin use: with fdc use Qualified Code(s) : E11.621 - Type 2 diabetes mellitus with foot ulcer; L97.509 - Non-pressure chronic ulcer of other part of unspecified foot with unspecified severity; L97.509 - Non-pressure chronic ulcer of other part of unspecified foot with unspecified severity; L97.509 - Non-pressure chronic ulcer of other part of unspecified foot with unspecified severity; L97.509 - Non-pressure chronic ulcer of other part of unspecified foot with unspecified severity; Z79.4 - [facility] (current) use of insulin; Z79.4 - oysterman (current) use of insulin; Z79.4 - [facility] (current) use of insulin; Z79.4 - [facility] (current) use of insulin (4) Hyperglycemia Current Visit: Yes Status: Acute Assessment and plan: As above (5) GERD (gastroesophageal reflux disease) Current Visit: Yes Status: Chronic Assessment and plan: Continue current meds Qualifiers: Esophagitis presence: without esophagitis Qualified Code(s): K21.9 - Gastro -esophageal reflux disease without esophagitis (6) Tobacco abuse Current Visit: Yes Status: Chronic Assessment and plan: Encourage cessation (7) Hepatitis C Current Visit: Yes Status: Chronic Assessment and plan: Referral for treatment as outpatient by PCP Qualifiers: Viral hepatitis chronicity: chronic Hepatic coma status: without hepatic coma Qualified Code(s): B18.2 - Chronic viral hepatitis C - Subjective Interval history: Seen and evaluated No new complains Awaiting placement - Constitutional Vitals: Temp Pulse Resp BP Pulse Ox 98.8 F 85 18 134/84 94 01/16/17 07:54 01/16/17 07:54 01/16/17 07:54 01/16/17 07:54 01/16/17 07:54 General appearance: Present: A&O X 3, pleasant, no acute distress, answers questions appropriately - Head Head exam: Present: atraumatic, normocephalic - Eye Eye exam: Present: PERRL, conjuntiva pink, sclera anicteric Pupils: Present: PERRL - Neck Neck exam general surgery: Present: supple, trachea midline. Absent: lymphadenopathy - Respiratory Respiratory exam: Present: CTAB. Absent: accessory muscle use, rales, rhonchi, wheezes - Cardiovascular Cardiovascular exam: Present: RRR, +S1, +S2. Absent: diastolic murmur, gallop, rubs, systolic murmur - GI/Abdominal GI/Abdominal exam: Present: normal bowel sounds, soft, no peritoneal signs. Absent: distended, tenderness - Extremities Exam Extremities exam: Present: warm, radial pulses palpable and symmetrical. Absent : calf tenderness, cyanotic, pedal edema Additional comments: chronic healed leg ulcers - Neurological Exam Neurological exam: Present: alert, CN II-XII intact, oriented X3, no focal deficits. Absent: pronater drift, facial droop, speech deficit - Skin Skin exam: Present: dry, intact Internal Medicine: Result - Labs CBC & Chem 7: 01/14/17 08:51 01/16/17 05:37 Labs: BMP 01/16/17 05:37 Sodium 138 Potassium 4.1 Chloride 104 Carbon Dioxide 27 BUN 15 Creatinine 0.93 Glucose 214 H Calcium 8.7 - VTE Documentation of Mechanical Device: Intermittent pneumatic compression device Consult Discharge Plan - Plan Referrals: NONE,PCP [Primary Care Provider] - ([facility] [phone]/ patient is from [facility])
[2017-01-17] MEDS: *HR* Heparin 5,000 UNIT/ML VIAL SQ SCH ×3 (05:44→21:48)
[2017-01-17] MEDS: Acetaminophen 325 MG TABLET PO PRN ×3 (07:35→21:48)
[2017-01-17] MEDS: *HR* Metformin 500 MG TABLET PO SCH ×2 (07:36→16:37)
[2017-01-17] MEDS: Insulin LISPRO 300 UNITS/3 ML VIAL SQ SCH ×7 (09:51→21:48)
[2017-01-17] MEDS: Insulin DETEMIR 100 UNIT/ML X5UNITS SQ SCH ×2 (09:51→21:47)
[2017-01-17] MEDS: Leptospermum Honey GEL 1 APPL/5 ML MLS TP SCH ×2 (11:45→21:48)
--- NOTE | 2017-01-17 12:22 | Discharge Summary ---
Date of Encounter: 01/17/17 Time of Encounter: 12:22 - Discharge Diagnosis (1) Alcoholism /alcohol abuse Priority: Secondary Status: Chronic (2) Polysubstance abuse Priority: Secondary Status: Chronic (3) Diabetes Priority: Secondary Status: Chronic Qualifiers: Diabetes mellitus type: type 2 Diabetes mellitus complication status: with skin complications Diabetes mellitus complication detail: with foot ulcer Diabetes mellitus assisted insulin use: with termite exterminator helper use Qualified Code(s) : E11.621 - Type 2 diabetes mellitus with foot ulcer; L97.509 - Non-pressure chronic ulcer of other part of unspecified foot with unspecified severity; L97.509 - Non-pressure chronic ulcer of other part of unspecified foot with unspecified severity; L97.509 - Non-pressure chronic ulcer of other part of unspecified foot with unspecified severity; L97.509 - Non-pressure chronic ulcer of other part of unspecified foot with unspecified severity; Z79.4 - penitentiary (current) use of insulin; Z79.4 - penitentiary (current) use of insulin; Z79.4 - penitentiary (current) use of insulin; Z79.4 - terminal worker (current) use of insulin (4) Hyperglycemia Priority: Primary Status: Acute (5) GERD (gastroesophageal reflux disease) Priority: Secondary Status: Chronic Qualifiers: Esophagitis presence: without esophagitis Qualified Code(s): K21.9 - Gastro -esophageal reflux disease without esophagitis (6) Tobacco abuse Priority: Secondary Status: Chronic (7) Hepatitis C Priority: Secondary Status: Chronic Qualifiers: Viral hepatitis chronicity: chronic Hepatic coma status: without hepatic coma Qualified Code(s): B18.2 - Chronic viral hepatitis C - Discharge Medications Home Medications: Acetaminophen [Tylenol] 650 mg PO Q6HR PRN tablet 01/17/17 [Rx] Insulin DETEMIR [Levemir] 20 unit SQ BID [id number] 01/17/17 [Rx] Insulin LISPRO [HumaLOG] 10 units SQ TIDWM vial 01/17/17 [Rx] Leptospermum Honey GEL [Medihoney Gel] 1 appl TP BID mls 01/17/17 [Rx] Lisinopril [Zestril] 5 mg PO DAILY tablet 01/17/17 [Rx] metFORMIN [Glucophage] 1,000 mg PO BIDWM tablet 01/17/17 [Rx] Allergies/Adverse Reactions: 3 Allergy/AdvReac Type Severity Reaction Status Date / Time No Known Allergies Allergy Verified 08/02/16 14:50 Date of admission: 01/09/17 19:32 Primary care physician: PCP NONE Consults: 01/09/17 19:35 Consult to Research Development Director [CONS] Routine Reason for SW Consult: pls assist with home situation/placement, thanks 01/10/17 09:30 Consult to Wound Care [CONS] Routine Reason for Consult: DM-I with multiple LE ulcers (none apparently open) Call Completed: No 01/10/17 14:43 Consult to Skull Splitter [CONS] Routine Comment: Reason for Consult: uncontrolled DM; has not been on any medications x1 month Discharging clinician: Jesus Sanchez Anticipated date of discharge: 01/17/17 - Patient Status Disposition: Transfer SNF Condition: Good Functional capacity at discharge: independent ambulation Overall status at discharge: patient is back to baseline - Discharge Instructions Follow Up With: NONE,PCP [Primary Care Provider] - ([facility] [phone]/ patient is from [facility]-Patient will follow up ECF PCP) - Diet and Activity Activity: resume usual activities as tolerated Diet: diabetic diet Interval History: See below Hospital course: Mr. Proctor is a 61 year old male with hx of polysubstance and alcohol abuse, hep C, DM with known no-compliance He was admitted for management of hyperglycemia without ketosis He has since made improvement and is medically stable to be discharged There has been multiple issues regarding his placement due to his prios history with many SNF in this area. He has chronic healed LE ulcers and is medically stable to be discharged to SNF His A1C was 11 on this admission, improved from >14 in 07/2016 Alcohol and tobacco cessation encouraged Time spent discussing smoking cessation with patient: 3 to 10 minutes - Time Spent with Patient Total time spent providing and/or coordinating discharge services: Greater than 30 minutes - Constitutional Vitals: Temp Pulse Resp BP Pulse Ox 98.2 F 80 17 126/76 98 01/17/17 10:38 01/17/17 10:38 01/17/17 10:38 01/17/17 10:38 01/17/17 10:38 General appearance: Present: A&O X 3, pleasant, no acute distress, answers questions appropriately - Head Head exam: Present: atraumatic, normocephalic - Eye Eye exam: Present: PERRL, conjuntiva pink, sclera anicteric Pupils: Present: PERRL - Neck Neck exam general surgery: Present: supple, trachea midline. Absent: lymphadenopathy - Respiratory Respiratory exam: Present: CTAB. Absent: accessory muscle use, rales, rhonchi, wheezes - Cardiovascular Cardiovascular exam: Present: RRR, +S1, +S2. Absent: diastolic murmur, gallop, rubs, systolic murmur - GI/Abdominal GI/Abdominal exam: Present: normal bowel sounds, soft, no peritoneal signs. Absent: distended, tenderness - Extremities Exam Extremities exam: Present: warm, radial pulses palpable and symmetrical. Absent : calf tenderness, cyanotic, pedal edema Additional comments: chronic healed leg ulcers - Neurological Exam Neurological exam: Present: alert, CN II-XII intact, oriented X3, no focal deficits. Absent: pronater drift, facial droop, speech deficit - Skin Skin exam: Present: dry, intact - VTE Documentation of Mechanical Device: Intermittent pneumatic compression device
[2017-01-18] MEDS: *HR* Heparin 5,000 UNIT/ML VIAL SQ SCH ×3 (05:53→21:47)
[2017-01-18] MEDS: Insulin LISPRO 300 UNITS/3 ML VIAL SQ SCH ×7 (09:33→21:46)
[2017-01-18] MEDS: *HR* Metformin 500 MG TABLET PO SCH ×2 (09:34→18:11)
[2017-01-18] MEDS: Insulin DETEMIR 100 UNIT/ML X5UNITS SQ SCH ×2 (09:34→21:47)
[2017-01-18] MEDS: Acetaminophen 325 MG TABLET PO PRN ×2 (10:04→18:11)
--- NOTE | 2017-01-18 10:41 | Physician Discharge Referral ---
ExtendedCare Referral Info Transfer To: SNF Provider in Charge: Khang Sanchez Provider in Charge after Transfer: PCP Institutional Level of Care: Skilled - Diagnosis (1) Alcoholism /alcohol abuse Priority: Secondary Status: Chronic (2) Polysubstance abuse Priority: Secondary Status: Chronic (3) Diabetes Priority: Secondary Status: Chronic (4) Hyperglycemia Priority: Primary Status: Resolved (5) GERD (gastroesophageal reflux disease) Priority: Secondary Status: Chronic (6) Tobacco abuse Priority: Secondary Status: Chronic (7) Hepatitis C Priority: Secondary Status: Chronic Prognosis: Good Aware of Diagnosis: Patient Aware of Prognosis: Patient - Transfer Medications Home Medications: Acetaminophen [Tylenol] 650 mg PO Q6HR PRN tablet 01/17/17 [Rx] Insulin DETEMIR [Levemir] 20 unit SQ BID [id number] 01/17/17 [Rx] Insulin LISPRO [HumaLOG] 10 units SQ TIDWM vial 01/17/17 [Rx] Leptospermum Honey GEL [Medihoney Gel] 1 appl TP BID mls 01/17/17 [Rx] Lisinopril [Zestril] 5 mg PO DAILY tablet 01/17/17 [Rx] metFORMIN [Glucophage] 1,000 mg PO BIDWM tablet 01/17/17 [Rx] Allergies/Adverse Reactions: 3 Allergy/AdvReac Type Severity Reaction Status Date / Time No Known Allergies Allergy Verified 08/02/16 14:50 - Respiratory Orders Smoking Cessation: Smoking cessation has been advised. For more information, call the [place] Tobacco Quit Line at 9-447-GCNC-NOW. - Advance Directives Code Status: Full Code - Diet Orders No Concentrated Sweets CERTIFICATION: I certify that the transfer of the above named patient to an Extended Care Facility is necessary for the continuing treatment of the diagnosis listed. The above information is true and accurate reflection of patient's current condition. Confidential - Redisclosure prohibited without a patient's written consent.
[2017-01-18] MEDS: Leptospermum Honey GEL 1 APPL/5 ML MLS TP SCH ×2 (11:33→21:47)
--- NOTE | 2017-01-18 12:12 | Internal Med Progress Note ---
Date of Encounter: 01/18/17 Time of Encounter: 12:11 - Assessment and plan (1) Alcoholism /alcohol abuse Current Visit: Yes Status: Chronic Assessment and plan: -Patient was on CIWA precautions (2) Polysubstance abuse Current Visit: Yes Status: Chronic Assessment and plan: Encourage cessation (3) Diabetes Current Visit: Yes Status: Chronic Assessment and plan: Uncontrolled A1C 11 Continue levemir, add prandial insulin FS ACHS Continue Metformin Qualifiers: Diabetes mellitus type: type 2 Diabetes mellitus complication status: with skin complications Diabetes mellitus complication detail: with foot ulcer Diabetes mellitus chcf insulin use: with chcf use Qualified Code(s) : E11.621 - Type 2 diabetes mellitus with foot ulcer; L97.509 - Non-pressure chronic ulcer of other part of unspecified foot with unspecified severity; L97.509 - Non-pressure chronic ulcer of other part of unspecified foot with unspecified severity; L97.509 - Non-pressure chronic ulcer of other part of unspecified foot with unspecified severity; L97.509 - Non-pressure chronic ulcer of other part of unspecified foot with unspecified severity; Z79.4 - intermediate (current) use of insulin; Z79.4 - terminal clerk (current) use of insulin; Z79.4 - intermediate (current) use of insulin; Z79.4 - intermediate (current) use of insulin (4) Hyperglycemia Current Visit: Yes Status: Resolved Assessment and plan: As above (5) GERD (gastroesophageal reflux disease) Current Visit: Yes Status: Chronic Assessment and plan: Continue current meds Qualifiers: Esophagitis presence: without esophagitis Qualified Code(s): K21.9 - Gastro -esophageal reflux disease without esophagitis (6) Tobacco abuse Current Visit: Yes Status: Chronic Assessment and plan: Encourage cessation (7) Hepatitis C Current Visit: Yes Status: Chronic Assessment and plan: Referral for treatment as outpatient by PCP Qualifiers: Viral hepatitis chronicity: chronic Hepatic coma status: without hepatic coma Qualified Code(s): B18.2 - Chronic viral hepatitis C - Subjective Interval history: Seen and evaluated No new complains Awaiting placement Continues to be clinically stable. Blood sugar is controlled on current regimen. Patient has no new complaints. - Constitutional Vitals: Temp Pulse Resp BP Pulse Ox 98.5 F 83 18 130/86 98 01/18/17 07:51 01/18/17 07:51 01/18/17 07:51 01/18/17 07:51 01/18/17 07:51 General appearance: Present: A&O X 3, pleasant, no acute distress, answers questions appropriately - Head Head exam: Present: atraumatic, normocephalic - Eye Eye exam: Present: PERRL, conjuntiva pink, sclera anicteric Pupils: Present: PERRL - Neck Neck exam general surgery: Present: supple, trachea midline. Absent: lymphadenopathy - Respiratory Respiratory exam: Present: CTAB. Absent: accessory muscle use, rales, rhonchi, wheezes - Cardiovascular Cardiovascular exam: Present: RRR, +S1, +S2. Absent: diastolic murmur, gallop, rubs, systolic murmur - GI/Abdominal GI/Abdominal exam: Present: normal bowel sounds, soft, no peritoneal signs. Absent: distended, tenderness - Extremities Exam Extremities exam: Present: warm, radial pulses palpable and symmetrical. Absent : calf tenderness, cyanotic, pedal edema - Neurological Exam Neurological exam: Present: alert, CN II-XII intact, oriented X3, no focal deficits. Absent: pronater drift, facial droop, speech deficit - Skin Skin exam: Present: dry, intact Internal Medicine: Result - Labs CBC & Chem 7: 01/14/17 08:51 01/16/17 05:37 - VTE Documentation of Mechanical Device: Intermittent pneumatic compression device Consult Discharge Plan - Plan Referrals: NONE,PCP [Primary Care Provider] - ([facility] [phone]/ patient is from ECF-Patient will follow up ECF PCP)
[2017-01-19] MEDS: *HR* Heparin 5,000 UNIT/ML VIAL SQ SCH ×3 (05:12→21:23)
[2017-01-19] MEDS: Insulin LISPRO 300 UNITS/3 ML VIAL SQ SCH ×7 (08:49→21:23)
[2017-01-19] MEDS: Insulin DETEMIR 100 UNIT/ML X5UNITS SQ SCH ×2 (08:50→21:23)
[2017-01-19] MEDS: *HR* Metformin 500 MG TABLET PO SCH ×2 (08:50→18:33)
[2017-01-19] MEDS: Acetaminophen 325 MG TABLET PO PRN ×2 (08:55→15:08)
--- NOTE | 2017-01-19 10:01 | Internal Med Progress Note ---
Date of Encounter: 01/19/17 Time of Encounter: 09:59 - Assessment and plan (1) Alcoholism /alcohol abuse Current Visit: Yes Status: Chronic Assessment and plan: -Patient was on CIWA precautions (2) Polysubstance abuse Current Visit: Yes Status: Chronic Assessment and plan: Encourage cessation (3) Diabetes Current Visit: Yes Status: Chronic Assessment and plan: Uncontrolled A1C 11 Continue levemir, add prandial insulin FS ACHS Continue Metformin Qualifiers: Diabetes mellitus type: type 2 Diabetes mellitus complication status: with skin complications Diabetes mellitus complication detail: with foot ulcer Diabetes mellitus chcf insulin use: with chcf use Qualified Code(s) : E11.621 - Type 2 diabetes mellitus with foot ulcer; L97.509 - Non-pressure chronic ulcer of other part of unspecified foot with unspecified severity; L97.509 - Non-pressure chronic ulcer of other part of unspecified foot with unspecified severity; L97.509 - Non-pressure chronic ulcer of other part of unspecified foot with unspecified severity; L97.509 - Non-pressure chronic ulcer of other part of unspecified foot with unspecified severity; Z79.4 - snf (current) use of insulin; 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 - 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 of insulin; Z79.4 - snf (current) use of insulin; Z79.4 - snf (current) use of insulin (4) Hyperglycemia Current Visit: Yes Status: Resolved Assessment and plan: As above (5) GERD (gastroesophageal reflux disease) Current Visit: Yes Status: Chronic Assessment and plan: Continue current meds Qualifiers: Esophagitis presence: without esophagitis Qualified Code(s): K21.9 - Gastro -esophageal reflux disease without esophagitis (6) Tobacco abuse Current Visit: Yes Status: Chronic Assessment and plan: Encourage cessation (7) Hepatitis C Current Visit: Yes Status: Chronic Assessment and plan: Referral for treatment as outpatient by PCP Qualifiers: Viral hepatitis chronicity: chronic Hepatic coma status: without hepatic coma Qualified Code(s): B18.2 - Chronic viral hepatitis C - Subjective Interval history: Seen and evaluated No new complains Awaiting placement Continues to be clinically stable. Blood sugar is controlled on current regimen. Patient has no new complaints. - Constitutional Vitals: Temp Pulse Resp BP Pulse Ox 98.2 F 75 18 121/81 95 01/19/17 07:46 01/19/17 07:46 01/19/17 07:46 01/19/17 07:46 01/19/17 07:46 General appearance: Present: A&O X 3, pleasant, no acute distress, answers questions appropriately - Head Head exam: Present: atraumatic, normocephalic - Eye Eye exam: Present: PERRL, conjuntiva pink, sclera anicteric Pupils: Present: PERRL - Neck Neck exam general surgery: Present: supple, trachea midline. Absent: lymphadenopathy - Respiratory Respiratory exam: Present: CTAB. Absent: accessory muscle use, rales, rhonchi, wheezes - Cardiovascular Cardiovascular exam: Present: RRR, +S1, +S2. Absent: diastolic murmur, gallop, rubs, systolic murmur - GI/Abdominal GI/Abdominal exam: Present: normal bowel sounds, soft, no peritoneal signs. Absent: distended, tenderness - Extremities Exam Extremities exam: Present: warm, radial pulses palpable and symmetrical. Absent : calf tenderness, cyanotic, pedal edema Additional comments: chronic healed ulcer - Neurological Exam Neurological exam: Present: alert, CN II-XII intact, oriented X3, no focal deficits. Absent: pronater drift, facial droop, speech deficit - Skin Skin exam: Present: dry, intact Internal Medicine: Result - Labs CBC & Chem 7: 01/14/17 08:51 01/16/17 05:37 - VTE Documentation of Mechanical Device: Intermittent pneumatic compression device Consult Discharge Plan - Plan Referrals: NONE,PCP [Primary Care Provider] - ([facility] [phone]/ [facility] is from [facility]-Patient will follow up ECF PCP)
[2017-01-19] MEDS: Leptospermum Honey GEL 1 APPL/5 ML MLS TP SCH (18:34)
[2017-01-20] MEDS: Leptospermum Honey GEL 1 APPL/5 ML MLS TP SCH ×3 (00:34→22:15)
[2017-01-20] MEDS: *HR* Heparin 5,000 UNIT/ML VIAL SQ SCH ×3 (04:47→22:14)
[2017-01-20] MEDS: *HR* Metformin 500 MG TABLET PO SCH ×2 (08:23→16:39)
[2017-01-20] MEDS: Insulin LISPRO 300 UNITS/3 ML VIAL SQ SCH ×7 (08:24→22:26)
[2017-01-20] MEDS: Insulin DETEMIR 100 UNIT/ML X5UNITS SQ SCH ×2 (09:48→22:24)
[2017-01-20] MEDS: Acetaminophen 325 MG TABLET PO PRN (09:48)
--- NOTE | 2017-01-20 09:57 | Internal Med Progress Note ---
Date of Encounter: 01/20/17 Time of Encounter: 09:56 - Assessment and plan (1) Alcoholism /alcohol abuse Current Visit: Yes Status: Chronic (2) Polysubstance abuse Current Visit: Yes Status: Chronic (3) Diabetes Current Visit: Yes Status: Chronic Qualifiers: Diabetes mellitus type: type 2 Diabetes mellitus complication status: with skin complications Diabetes mellitus complication detail: with foot ulcer Diabetes mellitus local company intermodal truck driver insulin use: with local company intermodal truck driver use Qualified Code(s) : E11.621 - Type 2 diabetes mellitus with foot ulcer; L97.509 - Non-pressure chronic ulcer of other part of unspecified foot with unspecified severity; L97.509 - Non-pressure chronic ulcer of other part of unspecified foot with unspecified severity; L97.509 - Non-pressure chronic ulcer of other part of unspecified foot with unspecified severity; L97.509 - Non-pressure chronic ulcer of other part of unspecified foot with unspecified severity; Z79.4 - long-term (current) use of insulin; Z79.4 - long-term (current) use of insulin; Z79.4 - assistant terminal manager (current) use of insulin; Z79.4 - assistant terminal manager (current) use of insulin (4) Hyperglycemia Current Visit: Yes Status: Resolved (5) GERD (gastroesophageal reflux disease) Current Visit: Yes Status: Chronic Qualifiers: Esophagitis presence: without esophagitis Qualified Code(s): K21.9 - Gastro -esophageal reflux disease without esophagitis (6) Tobacco abuse Current Visit: Yes Status: Chronic (7) Hepatitis C Current Visit: Yes Status: Chronic Qualifiers: Viral hepatitis chronicity: chronic Hepatic coma status: without hepatic coma Qualified Code(s): B18.2 - Chronic viral hepatitis C - Subjective Interval history: Seen and evaluated No new complains Awaiting placement Continues to be clinically stable. No complains Increased levemir to 22 units BID, continue to monitor FS - Constitutional Vitals: Temp Pulse Resp BP Pulse Ox 98.4 F 78 18 121/81 100 01/20/17 07:47 01/20/17 07:47 01/20/17 07:47 01/20/17 07:47 01/20/17 07:47 General appearance: Present: A&O X 3, pleasant, no acute distress, answers questions appropriately - Head Head exam: Present: atraumatic, normocephalic - Eye Eye exam: Present: PERRL, conjuntiva pink, sclera anicteric Pupils: Present: PERRL - Neck Neck exam general surgery: Present: supple, trachea midline. Absent: lymphadenopathy - Respiratory Respiratory exam: Present: CTAB. Absent: accessory muscle use, rales, rhonchi, wheezes - Cardiovascular Cardiovascular exam: Present: RRR, +S1, +S2. Absent: diastolic murmur, gallop, rubs, systolic murmur - GI/Abdominal GI/Abdominal exam: Present: normal bowel sounds, soft, no peritoneal signs. Absent: distended, tenderness - Extremities Exam Extremities exam: Present: warm, radial pulses palpable and symmetrical. Absent : calf tenderness, cyanotic, pedal edema - Neurological Exam Neurological exam: Present: alert, CN II-XII intact, oriented X3, no focal deficits. Absent: pronater drift, facial droop, speech deficit - Skin Skin exam: Present: dry, intact Internal Medicine: Result - Labs CBC & Chem 7: 01/14/17 08:51 01/16/17 05:37 - VTE Documentation of Mechanical Device: Intermittent pneumatic compression device Consult Discharge Plan - Plan Referrals: NONE,PCP [Primary Care Provider] - ([facility] [phone]/ patient is from E[facility]-Patient will follow up ECF PCP)
[2017-01-21] MEDS: *HR* Heparin 5,000 UNIT/ML VIAL SQ SCH (04:49)
[2017-01-21] MEDS: Insulin LISPRO 300 UNITS/3 ML VIAL SQ SCH ×4 (09:19→13:30)
[2017-01-21] MEDS: *HR* Metformin 500 MG TABLET PO SCH (09:19)
--- NOTE | 2017-01-21 10:52 | Internal Med Progress Note ---
Date of Encounter: 01/21/17 Time of Encounter: 10:52 - Assessment and plan (1) Alcoholism /alcohol abuse Current Visit: Yes Status: Chronic Assessment and plan: -Patient was on CIWA precautions (2) Polysubstance abuse Current Visit: Yes Status: Chronic Assessment and plan: Encourage cessation (3) Diabetes Current Visit: Yes Status: Chronic Assessment and plan: Uncontrolled A1C 11 Continue levemir, add prandial insulin FS ACHS Continue Metformin Qualifiers: Diabetes mellitus type: type 2 Diabetes mellitus complication status: with skin complications Diabetes mellitus complication detail: with foot ulcer Diabetes mellitus mcfp insulin use: with mcfp use Qualified Code(s) : E11.621 - Type 2 diabetes mellitus with foot ulcer; L97.509 - Non-pressure chronic ulcer of other part of unspecified foot with unspecified severity; L97.509 - Non-pressure chronic ulcer of other part of unspecified foot with unspecified severity; L97.509 - Non-pressure chronic ulcer of other part of unspecified foot with unspecified severity; L97.509 - Non-pressure chronic ulcer of other part of unspecified foot with unspecified severity; Z79.4 - FPC (current) use of insulin; 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; Z79.4 - FPC (current) use of insulin; Z79.4 - FPC (current) use of insulin (4) Hyperglycemia Current Visit: Yes Status: Resolved Assessment and plan: As above (5) GERD (gastroesophageal reflux disease) Current Visit: Yes Status: Chronic Assessment and plan: Continue current meds Qualifiers: Esophagitis presence: without esophagitis Qualified Code(s): K21.9 - Gastro -esophageal reflux disease without esophagitis (6) Tobacco abuse Current Visit: Yes Status: Chronic Assessment and plan: Encourage cessation (7) Hepatitis C Current Visit: Yes Status: Chronic Assessment and plan: Referral for treatment as outpatient by PCP Qualifiers: Viral hepatitis chronicity: chronic Hepatic coma status: without hepatic coma Qualified Code(s): B18.2 - Chronic viral hepatitis C - Subjective Interval history: Seen and evaluated No new complains Awaiting placement Continues to be clinically stable. No complains - Constitutional Vitals: Temp Pulse Resp BP Pulse Ox 98.0 F 74 17 113/75 97 01/21/17 07:39 01/21/17 07:39 01/21/17 07:39 01/21/17 07:39 01/21/17 07:39 General appearance: Present: A&O X 3, pleasant, no acute distress, answers questions appropriately - Head Head exam: Present: atraumatic, normocephalic - Eye Eye exam: Present: PERRL, conjuntiva pink, sclera anicteric Pupils: Present: PERRL - Neck Neck exam general surgery: Present: supple, trachea midline. Absent: lymphadenopathy - Respiratory Respiratory exam: Present: CTAB. Absent: accessory muscle use, rales, rhonchi, wheezes - Cardiovascular Cardiovascular exam: Present: RRR, +S1, +S2. Absent: diastolic murmur, gallop, rubs, systolic murmur - GI/Abdominal GI/Abdominal exam: Present: normal bowel sounds, soft, no peritoneal signs. Absent: distended, tenderness - Extremities Exam Additional comments: healed chronic leg ulcers - Neurological Exam Neurological exam: Present: alert, CN II-XII intact, oriented X3, no focal deficits. Absent: pronater drift, facial droop, speech deficit - Skin Skin exam: Present: dry Internal Medicine: Result - Labs CBC & Chem 7: 01/14/17 08:51 01/16/17 05:37 - VTE Documentation of Mechanical Device: Intermittent pneumatic compression device Consult Discharge Plan - Plan Referrals: NONE,PCP [Primary Care Provider] - ([facility] [phone]/ [facility] is from [facility]-Patient will follow up [facility] PCP)
[2017-01-21 10:56] VITALS: BP 128/70
[2017-01-21] MEDS: Acetaminophen 325 MG TABLET PO PRN (11:31)
[2017-01-21] MEDS: Insulin DETEMIR 100 UNIT/ML X5UNITS SQ SCH (11:32)
[2017-01-21] MEDS: Leptospermum Honey GEL 1 APPL/5 ML MLS TP SCH (13:31)
== END 2017-01-21 15:42 | DRG 420 ==
LOC: 2ANU 16:18 → EMEROO 16:18 → 2ANU 19:04 → SUATTDRO 19:32 → 2ANU 01-14 22:17
PROVIDERS: ADMIT Nurse Practitioner Acute Care; ATTEND Internal Medicine

== ENCOUNTER 2017-12-06 17:28 | Observation (INO) ==
--- NOTE | 2017-12-06 17:32 | Emergency Department Note ---
Disposition Clinical Impression: Hyperglycemia, Alcohol abuse, Anemia, Hypokalemia Disposition: Admitted As Inpatient Condition: Fair General Adult HPI - General Time Seen by Provider: 12/06/17 17:31 - Related Data Previous Rx's Medication Instructions Recorded Acetaminophen [Tylenol] 650 mg PO Q6HR PRN tablet 01/17/17 Insulin DETEMIR [Levemir] 20 unit SQ BID [id number] 01/17/17 Insulin LISPRO [HumaLOG] 10 units SQ TIDWM vial 01/17/17 Leptospermum Honey GEL [Medihoney 1 appl TP BID mls 01/17/17 Gel] Lisinopril [Zestril] 5 mg PO DAILY tablet 01/17/17 metFORMIN [Glucophage] 1,000 mg PO BIDWM tablet 01/17/17 Allergies Allergy/AdvReac Type Severity Reaction Status Date / Time No Known Allergies Allergy Verified 08/02/16 14:50 Past Medical History - Past Medical History Medical history: Reports: arthritis, diabetes, GERD, hepatitis, hyperlipidemia, hypertension, osteoporosis, seizures, syncope, other Surgical history: Reports: cholecystectomy Psychiatric history: Reports: anxiety, depression - Social History Smoking Status: Current every day smoker Smokeless Tobacco Status: No Alcohol use: Reports: heavy Drug use: Reports: cocaine, marijuana Course Vital Signs Temperature 98.8 F 12/06/17 17:33 Pulse Rate 93 12/06/17 17:33 Respiratory Rate 16 12/06/17 17:33 Blood Pressure 87/63 12/06/17 17:33 O2 Sat by Pulse Oximetry 100 12/06/17 17:33 Temperature 98.6 F 12/06/17 22:10 Pulse Rate 94 12/06/17 22:10 Respiratory Rate 16 12/06/17 22:10 Blood Pressure 130/86 12/06/17 22:10 O2 Sat by Pulse Oximetry 94 12/06/17 22:10 Oxygen Delivery Oxygen Delivery Room Air Medical Decision Making - Lab Data Result diagrams: 12/06/17 17:49 12/06/17 17:49 Lab Results 12/06/17 12/06/17 12/06/17 Range/Units 17:34 17:36 17:49 WBC 5.0 (4.3-11.1) K/mcL RBC 3.07 L (4.19-5.50) M/mcL Hgb 8.8 L (12.9-16.9) g/dL Hct 26.4 L (37.5-50.1) % MCV 86.0 (83.0-100.0) fL MCH 28.7 (28.0-33.3) pg MCHC 33.3 (31.6-35.5) g/dL RDW 12.1 (11.5-14.5) % Plt Count 139 L (140-400) K/mcL MPV 9.8 (9.4-12.4) fL Immature Gran % 0.4 (0-4) % Seg Neutrophils % 67.2 % Lymphocytes % 20.5 % Monocytes % 10.7 % Eosinophils % 1.0 % Basophils % 0.2 % Neutrophils # 3.3 (1.6-8.9) K/mcL Lymphocytes # 1.0 (0.6-4.6) K/mcL Monocytes # 0.5 (0.0-1.3) K/mcL Eosinophils # 0.1 (0.0-0.6) K/mcL Basophils # 0.0 (0.0-0.2) K/mcL PT (9.4-12.1) Seconds INR VBG pH (7.32-7.42) pH Units VBG pCO2 (41-51) mmHg VBG pO2 (25-50) mmHg VBG HCO3 (21-27) mEq/L Sodium (136-145) mEq/L Potassium (3.5-5.1) mEq/L Chloride (98-107) mEq/L Carbon Dioxide (23-29) mEq/L BUN (8-23) mg/dL Creatinine (0.70-1.30) mg/dL Est GFR ( Amer) (> 60) Est GFR (Non-Af Amer) (> 60) BUN/Creatinine Ratio (6-26) Glucose (70-105) mg/dL POC Glucose 478 H* 450 H* (70-99) mg/dL Calculated Osmolality (280-300) Lactic Acid (0.5-2.2) mmol/L Calcium (8.6-10.3) mg/dL Phosphorus (2.7-4.5) mg/dL Magnesium (1.6-2.6) mg/dL Total Bilirubin (0.3-1.0) mg/dL AST (13-39) Units/L ALT (7-52) Units/L Alkaline Phosphatase (34-104) Units/L Serum Total Protein (6.4-8.9) g/dL Albumin (3.5-5.7) g/dL Globulin (2.4-3.5) g/dL Albumin/Globulin Ratio (1.1-2.2) Beta-Hydroxybutyric Acd (0.02-0.27) mmol/L Stool Occult Bld Scrn (Negative) Ethyl Alcohol (Less than 10) mg/dL 12/06/17 12/06/17 12/06/17 Range/Units 17:49 17:49 17:49 WBC (4.3-11.1) K/mcL RBC (4.19-5.50) M/mcL Hgb (12.9-16.9) g/dL Hct (37.5-50.1) % MCV (83.0-100.0) fL MCH (28.0-33.3) pg MCHC (31.6-35.5) g/dL RDW (11.5-14.5) % Plt Count (140-400) K/mcL MPV (9.4-12.4) fL Immature Gran % (0-4) % Seg Neutrophils % % Lymphocytes % % Monocytes % % Eosinophils % % Basophils % % Neutrophils # (1.6-8.9) K/mcL Lymphocytes # (0.6-4.6) K/mcL Monocytes # (0.0-1.3) K/mcL Eosinophils # (0.0-0.6) K/mcL Basophils # (0.0-0.2) K/mcL PT 12.6 H (9.4-12.1) Seconds INR 1.1 VBG pH (7.32-7.42) pH Units VBG pCO2 (41-51) mmHg VBG pO2 (25-50) mmHg VBG HCO3 (21-27) mEq/L Sodium 132 L (136-145) mEq/L Potassium 3.2 L (3.5-5.1) mEq/L Chloride 100 (98-107) mEq/L Carbon Dioxide 22 L (23-29) mEq/L BUN 13 (8-23) mg/dL Creatinine 1.10 (0.70-1.30) mg/dL Est GFR ( Amer) > 60 (> 60) Est GFR (Non-Af Amer) > 60 (> 60) BUN/Creatinine Ratio 12 (6-26) Glucose 444 H (70-105) mg/dL POC Glucose (70-99) mg/dL Calculated Osmolality 293 (280-300) Lactic Acid 3.5 H (0.5-2.2) mmol/L Calcium 8.2 L (8.6-10.3) mg/dL Phosphorus 2.6 L (2.7-4.5) mg/dL Magnesium 1.4 L (1.6-2.6) mg/dL Total Bilirubin 0.4 (0.3-1.0) mg/dL AST 24 (13-39) Units/L ALT 23 (7-52) Units/L Alkaline Phosphatase 57 (34-104) Units/L Serum Total Protein 5.9 L (6.4-8.9) g/dL Albumin 3.3 L (3.5-5.7) g/dL Globulin 2.6 (2.4-3.5) g/dL Albumin/Globulin Ratio 1.3 (1.1-2.2) Beta-Hydroxybutyric Acd (0.02-0.27) mmol/L Stool Occult Bld Scrn (Negative) Ethyl Alcohol 98 H (Less than 10) mg/dL 12/06/17 12/06/17 12/06/17 Range/Units 17:49 18:05 18:33 WBC (4.3-11.1) K/mcL RBC (4.19-5.50) M/mcL Hgb (12.9-16.9) g/dL Hct (37.5-50.1) % MCV (83.0-100.0) fL MCH (28.0-33.3) pg MCHC (31.6-35.5) g/dL RDW (11.5-14.5) % Plt Count (140-400) K/mcL MPV (9.4-12.4) fL Immature Gran % (0-4) % Seg Neutrophils % % Lymphocytes % % Monocytes % % Eosinophils % % Basophils % % Neutrophils # (1.6-8.9) K/mcL Lymphocytes # (0.6-4.6) K/mcL Monocytes # (0.0-1.3) K/mcL Eosinophils # (0.0-0.6) K/mcL Basophils # (0.0-0.2) K/mcL PT (9.4-12.1) Seconds INR VBG pH 7.34 (7.32-7.42) pH Units VBG pCO2 39 L (41-51) mmHg VBG pO2 82 H (25-50) mmHg VBG HCO3 21 (21-27) mEq/L Sodium (136-145) mEq/L Potassium (3.5-5.1) mEq/L Chloride (98-107) mEq/L Carbon Dioxide (23-29) mEq/L BUN (8-23) mg/dL Creatinine (0.70-1.30) mg/dL Est GFR ( Amer) (> 60) Est GFR (Non-Af Amer) (> 60) BUN/Creatinine Ratio (6-26) Glucose (70-105) mg/dL POC Glucose (70-99) mg/dL Calculated Osmolality (280-300) Lactic Acid (0.5-2.2) mmol/L Calcium (8.6-10.3) mg/dL Phosphorus (2.7-4.5) mg/dL Magnesium (1.6-2.6) mg/dL Total Bilirubin (0.3-1.0) mg/dL AST (13-39) Units/L ALT (7-52) Units/L Alkaline Phosphatase (34-104) Units/L Serum Total Protein (6.4-8.9) g/dL Albumin (3.5-5.7) g/dL Globulin (2.4-3.5) g/dL Albumin/Globulin Ratio (1.1-2.2) Beta-Hydroxybutyric Acd 0.37 H (0.02-0.27) mmol/L Stool Occult Bld Scrn Negative (Negative) Ethyl Alcohol (Less than 10) mg/dL 12/06/17 12/06/17 Range/Units 19:46 20:18 WBC (4.3-11.1) K/mcL RBC (4.19-5.50) M/mcL Hgb (12.9-16.9) g/dL Hct (37.5-50.1) % MCV (83.0-100.0) fL MCH (28.0-33.3) pg MCHC (31.6-35.5) g/dL RDW (11.5-14.5) % Plt Count (140-400) K/mcL MPV (9.4-12.4) fL Immature Gran % (0-4) % Seg Neutrophils % % Lymphocytes % % Monocytes % % Eosinophils % % Basophils % % Neutrophils # (1.6-8.9) K/mcL Lymphocytes # (0.6-4.6) K/mcL Monocytes # (0.0-1.3) K/mcL Eosinophils # (0.0-0.6) K/mcL Basophils # (0.0-0.2) K/mcL PT (9.4-12.1) Seconds INR VBG pH (7.32-7.42) pH Units VBG pCO2 (41-51) mmHg VBG pO2 (25-50) mmHg VBG HCO3 (21-27) mEq/L Sodium (136-145) mEq/L Potassium (3.5-5.1) mEq/L Chloride (98-107) mEq/L Carbon Dioxide (23-29) mEq/L BUN (8-23) mg/dL Creatinine (0.70-1.30) mg/dL Est GFR ( Amer) (> 60) Est GFR (Non-Af Amer) (> 60) BUN/Creatinine Ratio (6-26) Glucose (70-105) mg/dL POC Glucose 357 H (70-99) mg/dL Calculated Osmolality (280-300) Lactic Acid 2.5 H (0.5-2.2) mmol/L Calcium (8.6-10.3) mg/dL Phosphorus (2.7-4.5) mg/dL Magnesium (1.6-2.6) mg/dL Total Bilirubin (0.3-1.0) mg/dL AST (13-39) Units/L ALT (7-52) Units/L Alkaline Phosphatase (34-104) Units/L Serum Total Protein (6.4-8.9) g/dL Albumin (3.5-5.7) g/dL Globulin (2.4-3.5) g/dL Albumin/Globulin Ratio (1.1-2.2) Beta-Hydroxybutyric Acd (0.02-0.27) mmol/L Stool Occult Bld Scrn (Negative) Ethyl Alcohol (Less than 10) mg/dL Attestation Statement - Attestation Attestation: I examined this patient and my medical decision-making was reviewed with the Resident Physician. I agree with the documented findings, disposition and treatment plan as described except to the extent set forth below. [id number] time provided Patient arrives by EMS. He is a known type I diabetic. He is also known alcoholic. He admits to drinking liquor and beer today. Blood sugar was 400+ prehospital. The patient smells of alcohol but otherwise appears in no acute distress upon arrival. The patient was evaluated in conjunction with the resident physician Dr. Sears
[2017-12-06] MEDS ORDERED: 0.9 % Sodium Chloride 1,000 ML IVC ONE (17:36)
[2017-12-06] MEDS ORDERED: Thiamine (B-1) 100 MG TABLET PO ONE (17:38)
[2017-12-06] MEDS ORDERED: Folic Acid 1 MG TABLET PO ONE (17:39)
--- NOTE | 2017-12-06 17:44 | Emergency Department Note ---
Disposition Clinical Impression: Hyperglycemia, Alcohol abuse, Hypokalemia Anemia Qualifiers: Anemia type: unspecified type Qualified Code(s): D64.9 - Anemia, unspecified Disposition: Admitted As Inpatient Condition: Fair Referrals: NONE,PCP [Primary Care Provider] - Forms: ED Satisfaction Letter Time of Disposition: 20:04 General Adult HPI - General Chief complaint: ED Syncope Stated complaint: ETOH/Syncope Time Seen by Provider: 12/06/17 17:31 Source: patient, EMS Mode of arrival: EMS Limitations: no limitations Nursing Notes Reviewed: Yes Vital Signs Reviewed: Yes - History of Present Illness HPI Narrative: 62-year-old male presents for evaluation of alcohol intoxication and found in the street. Patient states he does admit to drinking alcohol earlier today. Patient does have a history of insulin dependent diabetes. Patient states he is not taking his insulin this morning. EMS reported the placed blood sugar was in the 400s. Patient denies any trauma or head injuries. States that he has been in DKA in the past. Patient denies any chest pain or shortness of breath. No abdominal pain or nausea vomiting. Patient does admit to drinking alcohol and states that his CONSUMPTION varies day to day. Pain Scale: 0 - Related Data Previous Rx's Medication Instructions Recorded Acetaminophen [Tylenol] 650 mg PO Q6HR PRN tablet 01/17/17 Insulin DETEMIR [Levemir] 20 unit SQ BID [id number] 01/17/17 Insulin LISPRO [HumaLOG] 10 units SQ TIDWM vial 01/17/17 Leptospermum Honey GEL [Medihoney 1 appl TP BID mls 01/17/17 Gel] Lisinopril [Zestril] 5 mg PO DAILY tablet 01/17/17 metFORMIN [Glucophage] 1,000 mg PO BIDWM tablet 01/17/17 Allergies Allergy/AdvReac Type Severity Reaction Status Date / Time No Known Allergies Allergy Verified 08/02/16 14:50 All systems ED: reviewed and negative except as stated. Constitutional: Denies: fever Cardiovascular: Denies: chest pain Respiratory: Denies: cough, dyspnea Gastrointestinal: Denies: abdominal pain, nausea, vomiting Past Medical History - Past Medical History Source: patient, old records reviewed Medical history: Reports: arthritis, diabetes, GERD, hepatitis, hyperlipidemia, hypertension, osteoporosis, seizures, syncope, other Surgical history: Reports: cholecystectomy Psychiatric history: Reports: anxiety, depression - Social History Smoking Status: Current every day smoker Smokeless Tobacco Status: No Alcohol use: Reports: heavy Drug use: Reports: cocaine, marijuana Physical Exam - General Limitations: no limitations General appearance: alert, in no apparent distress - Head Head exam: atraumatic, normocephalic, normal inspection - Eye Eye exam: Present: normal appearance, PERRL, EOMI - ENT ENT exam: normal exam, normal oropharynx, mucous membranes moist - Neck Neck exam: Present: normal inspection, trachea midline - Chest Chest inspection: Present: normal inspection, symmetric chest wall rise - Respiratory Respiratory exam: Present: normal lung sounds bilaterally. Absent: respiratory distress - Cardiovascular Cardiovascular exam: Present: regular rate, normal rhythm. Absent: systolic murmur - Abdominal Exam Abdominal exam: Present: soft, Non-Tender - Extremities Exam Extremities exam: Present: normal inspection. Absent: pedal edema - Expanded Lower Extremity Exam Neurovascular/Tendon exam: Present: normal capillary refill - Back Exam Back exam: Present: normal inspection - Neurological Exam Neurological exam: Present: alert, oriented X3 - Skin Skin exam: Present: warm, dry, intact, normal color Course Course Narrative: Patient seen and examined. Bedside glucoses 478. Patient does appear to be intoxicated. Will obtain basic labs screening for DKA. Patient will also get a chest x-ray. Urinalysis. Disposition pending. - Reevaluation(s) Reevaluation #1: Patient seen and examined. Patient's adamant about wanting something to eat. Patient will be given some diabetic food. Patient's hemoglobin did come back low. Patient had acute drop in hemoglobin. Etiology is unknown. Patient denies any blood in the stool or dark tarry stools. Patient will get a occult blood. Time: 18:31 Reevaluation #2: Patient seen and examined. Patient stool occult blood was negative. Patient did have an acute drop in hemoglobin from recent labs. Patient is agreeable for admission with observation. Time: 19:42 Reevaluation #3: Patient's resting comfortably. Patient's eating bedside watching TV. Awaiting repeat blood glucose. Patient's agreeable to hospitalization. Time: 20:03 Vital Signs Temperature 98.8 F 12/06/17 17:33 Pulse Rate 93 12/06/17 17:33 Respiratory Rate 16 12/06/17 17:33 Blood Pressure 87/63 12/06/17 17:33 O2 Sat by Pulse Oximetry 100 12/06/17 17:33 Temperature 98.8 F 12/06/17 17:33 Pulse Rate 86 12/06/17 18:54 Respiratory Rate 14 12/06/17 18:28 Blood Pressure 97/70 12/06/17 18:54 O2 Sat by Pulse Oximetry 100 12/06/17 18:54 Oxygen Delivery Oxygen Delivery Room Air Medical Decision Making - [facility] Narrative Medical decision making narrative: Patient presented after being found in the street. Patient does have a history of alcohol use. Patient also has a history of diabetes insulin-dependent. States that he did not take his insulin this morning. Found to be hyperglycemic. Patient is hyperglycemic and not acidotic. Patient's blood sugar was controlled with insulin and glucose. Patient has no signs or evidence of head trauma. 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 Patient answers all portions appropriately. Nonfocal exam. Patient had basic labs which shows anemia which is worse than recent lab draws. Occult blood was negative. Patient denies any blood in her stool or dark tarry stools. Patient was given folate, thiamine as well as potassium. Patient does not have any abdominal pain. Patient denies a chest pain with no ischemic EKG changes. Patient's EKG is normal. Given the patient's hyperglycemia as well as alcohol intoxication with his acute drop in hemoglobin the patient will be observed in the ED. Patient was agreeable this plan of care. - Lab Data Lab results reviewed: Yes I reviewed the patient's lab results. Result diagrams: 12/06/17 17:49 12/06/17 17:49 Lab Results 12/06/17 12/06/17 12/06/17 Range/Units 17:49 17:49 17:49 WBC 5.0 (4.3-11.1) K/mcL RBC 3.07 L (4.19-5.50) M/mcL Hgb 8.8 L (12.9-16.9) g/dL Hct 26.4 L (37.5-50.1) % MCV 86.0 (83.0-100.0) fL MCH 28.7 (28.0-33.3) pg MCHC 33.3 (31.6-35.5) g/dL RDW 12.1 (11.5-14.5) % Plt Count 139 L (140-400) K/mcL MPV 9.8 (9.4-12.4) fL Immature Gran % 0.4 (0-4) % Seg Neutrophils % 67.2 % Lymphocytes % 20.5 % Monocytes % 10.7 % Eosinophils % 1.0 % Basophils % 0.2 % Neutrophils # 3.3 (1.6-8.9) K/mcL Lymphocytes # 1.0 (0.6-4.6) K/mcL Monocytes # 0.5 (0.0-1.3) K/mcL Eosinophils # 0.1 (0.0-0.6) K/mcL Basophils # 0.0 (0.0-0.2) K/mcL PT 12.6 H (9.4-12.1) Seconds INR 1.1 VBG pH (7.32-7.42) pH Units VBG pCO2 (41-51) mmHg VBG pO2 (25-50) mmHg VBG HCO3 (21-27) mEq/L Sodium 132 L (136-145) mEq/L Potassium 3.2 L (3.5-5.1) mEq/L Chloride 100 (98-107) mEq/L Carbon Dioxide 22 L (23-29) mEq/L BUN 13 (8-23) mg/dL Creatinine 1.10 (0.70-1.30) mg/dL Est GFR ( Amer) > 60 (> 60) Est GFR (Non-Af Amer) > 60 (> 60) BUN/Creatinine Ratio 12 (6-26) Glucose 444 H (70-105) mg/dL Calculated Osmolality 293 (280-300) Lactic Acid (0.5-2.2) mmol/L Calcium 8.2 L (8.6-10.3) mg/dL Phosphorus 2.6 L (2.7-4.5) mg/dL Magnesium 1.4 L (1.6-2.6) mg/dL Total Bilirubin 0.4 (0.3-1.0) mg/dL AST 24 (13-39) Units/L ALT 23 (7-52) Units/L Alkaline Phosphatase 57 (34-104) Units/L Serum Total Protein 5.9 L (6.4-8.9) g/dL Albumin 3.3 L (3.5-5.7) g/dL Globulin 2.6 (2.4-3.5) g/dL Albumin/Globulin Ratio 1.3 (1.1-2.2) Beta-Hydroxybutyric Acd (0.02-0.27) mmol/L Stool Occult Bld Scrn (Negative) Ethyl Alcohol 98 H (Less than 10) mg/dL 12/06/17 12/06/17 12/06/17 Range/Units 17:49 17:49 18:05 WBC (4.3-11.1) K/mcL RBC (4.19-5.50) M/mcL Hgb (12.9-16.9) g/dL Hct (37.5-50.1) % MCV (83.0-100.0) fL MCH (28.0-33.3) pg MCHC (31.6-35.5) g/dL RDW (11.5-14.5) % Plt Count (140-400) K/mcL MPV (9.4-12.4) fL Immature Gran % (0-4) % Seg Neutrophils % % Lymphocytes % % Monocytes % % Eosinophils % % Basophils % % Neutrophils # (1.6-8.9) K/mcL Lymphocytes # (0.6-4.6) K/mcL Monocytes # (0.0-1.3) K/mcL Eosinophils # (0.0-0.6) K/mcL Basophils # (0.0-0.2) K/mcL PT (9.4-12.1) Seconds INR VBG pH 7.34 (7.32-7.42) pH Units VBG pCO2 39 L (41-51) mmHg VBG pO2 82 H (25-50) mmHg VBG HCO3 21 (21-27) mEq/L Sodium (136-145) mEq/L Potassium (3.5-5.1) mEq/L Chloride (98-107) mEq/L Carbon Dioxide (23-29) mEq/L BUN (8-23) mg/dL Creatinine (0.70-1.30) mg/dL Est GFR ( Amer) (> 60) Est GFR (Non-Af Amer) (> 60) BUN/Creatinine Ratio (6-26) Glucose (70-105) mg/dL Calculated Osmolality (280-300) Lactic Acid 3.5 H (0.5-2.2) mmol/L Calcium (8.6-10.3) mg/dL Phosphorus (2.7-4.5) mg/dL Magnesium (1.6-2.6) mg/dL Total Bilirubin (0.3-1.0) mg/dL AST (13-39) Units/L ALT (7-52) Units/L Alkaline Phosphatase (34-104) Units/L Serum Total Protein (6.4-8.9) g/dL Albumin (3.5-5.7) g/dL Globulin (2.4-3.5) g/dL Albumin/Globulin Ratio (1.1-2.2) Beta-Hydroxybutyric Acd 0.37 H (0.02-0.27) mmol/L Stool Occult Bld Scrn (Negative) Ethyl Alcohol (Less than 10) mg/dL 12/06/17 Range/Units 18:33 WBC (4.3-11.1) K/mcL RBC (4.19-5.50) M/mcL Hgb (12.9-16.9) g/dL Hct (37.5-50.1) % MCV (83.0-100.0) fL MCH (28.0-33.3) pg MCHC (31.6-35.5) g/dL RDW (11.5-14.5) % Plt Count (140-400) K/mcL MPV (9.4-12.4) fL Immature Gran % (0-4) % Seg Neutrophils % % Lymphocytes % % Monocytes % % Eosinophils % % Basophils % % Neutrophils # (1.6-8.9) K/mcL Lymphocytes # (0.6-4.6) K/mcL Monocytes # (0.0-1.3) K/mcL Eosinophils # (0.0-0.6) K/mcL Basophils # (0.0-0.2) K/mcL PT (9.4-12.1) Seconds INR VBG pH (7.32-7.42) pH Units VBG pCO2 (41-51) mmHg VBG pO2 (25-50) mmHg VBG HCO3 (21-27) mEq/L Sodium (136-145) mEq/L Potassium (3.5-5.1) mEq/L Chloride (98-107) mEq/L Carbon Dioxide (23-29) mEq/L BUN (8-23) mg/dL Creatinine (0.70-1.30) mg/dL Est GFR ( Amer) (> 60) Est GFR (Non-Af Amer) (> 60) BUN/Creatinine Ratio (6-26) Glucose (70-105) mg/dL Calculated Osmolality (280-300) Lactic Acid (0.5-2.2) mmol/L Calcium (8.6-10.3) mg/dL Phosphorus (2.7-4.5) mg/dL Magnesium (1.6-2.6) mg/dL Total Bilirubin (0.3-1.0) mg/dL AST (13-39) Units/L ALT (7-52) Units/L Alkaline Phosphatase (34-104) Units/L Serum Total Protein (6.4-8.9) g/dL Albumin (3.5-5.7) g/dL Globulin (2.4-3.5) g/dL Albumin/Globulin Ratio (1.1-2.2) Beta-Hydroxybutyric Acd (0.02-0.27) mmol/L Stool Occult Bld Scrn Negative (Negative) Ethyl Alcohol (Less than 10) mg/dL - Radiology Data Radiology results reviewed: Yes I reviewed the patient's radiology results. Chest X-Ray 12/06/17 17:36 IMPRESSION: No acute cardiopulmonary abnormality. D/ / Dorian Pacheco MD / Dorian Pacheco MD Interpreting Provider: Dorian Pacheco MD - EKG Data EKG #1 EKG attestation: Yes I reviewed and interpreted this EKG. EKG shows normal: sinus rhythm Rate: normal Rhythm: NSR Anita/QRS: normal Interpretation: no acute changes, normal EKG, nonspecific ST-T wave changes S.B.A.R. - S.B.A.R. Situation: Demographics Background: Presenting Complaint Assessment: Vital Signs, Course and respsone to treatment, Patient/Family Expectation Recommendation: Barrier(s) to disposition, Recommendation based on pending studies, treatments, or consults S.B.A.R. Report Given to: Dr. Sid Castro Repor Time: 20:03
[2017-12-06 18:04] LABS: Basophils % 0.2 %; Eosinophils # 0.1 K/mcL (0.0-0.6); Hematocrit 26.4 % (37.5-50.1); Hemoglobin 8.8 g/dL (12.9-16.9); Immature Granulocytes % 0.4 % (0-4); Lymphocytes % 20.5 %; Mean Corpuscular HGB Conc 33.3 g/dL (31.6-35.5); Mean Corpuscular Hemoglobin 28.7 pg (28.0-33.3); Mean Platelet Volume 9.8 fL (9.4-12.4); Monocytes # 0.5 K/mcL (0.0-1.3); Monocytes % 10.7 %; Neutrophils # 3.3 K/mcL (1.6-8.9); Platelet Count 139 K/mcL (140-400); Red Blood Count 3.07 M/mcL (4.19-5.50); Red Cell Distribution Width 12.1 % (11.5-14.5); Segmented Neutrophils % 67.2 %
[2017-12-06 18:09] LABS: INR 1.1; Prothrombin Time 12.6 Seconds (9.4-12.1)
[2017-12-06 18:14] LABS: VBG HCO3 21 mEq/L (21-27); VBG PCO2 39 mmHg (41-51); VBG PH 7.34 pH Units (7.32-7.42); VBG PO2 82 mmHg (25-50)
[2017-12-06 18:29] LABS: Alanine Aminotransferase 23 Units/L (7-52); Albumin 3.3 g/dL (3.5-5.7); Albumin/Globulin Ratio 1.3 (1.1-2.2); Alkaline Phosphatase 57 Units/L (34-104); Aspartate Amino Transferase 24 Units/L (13-39); BUN/Creatinine Ratio 12 (6-26); Bilirubin,Total 0.4 mg/dL (0.3-1.0); Blood Urea Nitrogen 13 mg/dL (8-23); Calcium 8.2 mg/dL (8.6-10.3); Carbon Dioxide 22 mEq/L (23-29); Chloride 100 mEq/L (98-107); Ethanol 98 mg/dL (Less than 10); Globulin 2.6 g/dL (2.4-3.5); Glucose 444 mg/dL (70-105); Magnesium 1.4 mg/dL (1.6-2.6); Osmolality,Calculated 293 (280-300); Phosphorous 2.6 mg/dL (2.7-4.5); Potassium 3.2 mEq/L (3.5-5.1); Sodium 132 mEq/L (136-145); Total Protein 5.9 g/dL (6.4-8.9); eGFR For Non-African Americans > 60 (> 60)
[2017-12-06] MEDS ORDERED: Insulin Human Regular 10 UNIT in 0.9 % Sodium Chloride 10 ML IV ONE (18:34)
[2017-12-06] MEDS ORDERED: Pantoprazole 40 MG VIAL IVP ONE (20:05)
[2017-12-06] MEDS ORDERED: Ondansetron ODT 4 MG TAB.RAPDIS SL PRN (20:35)
[2017-12-06] MEDS ORDERED: Acetaminophen 325 MG TABLET PO PRN (20:35)
[2017-12-06] MEDS ORDERED: Naloxone 0.4 MG/ML INJ IVP PRN (20:35)
[2017-12-06] MEDS ORDERED: *HR* Dextrose 50 % in Water (Syg) 50 ML SYRINGE IVP PRN (20:38)
[2017-12-06] MEDS ORDERED: Dextrose Gel 15 GM/37.5 ML TUBE PO PRN ×2 (20:38)
[2017-12-06] MEDS ORDERED: D5% in Water 1,000 ML IVC PRN (20:38)
[2017-12-06] MEDS ORDERED: *HR* LORazepam 2 MG/ML VIAL IVP PRN ×3 (20:40)
--- NOTE | 2017-12-06 20:46 | Internal Med History&Physical ---
Date of Encounter: 12/07/17 Time of Encounter: 20:44 Internal Medicine - H&P: HPI Chief complaint: AMS Admitted From: Emergency Dept History of present illness: Mr. Proctor is a 62 year old male hx DM and EtOh abuse was found in street and brought to ED, He has no memory of today's events since lunch. He admits to his daily average EtOH intake of one shot of liqueur and three 12 ox beers. He denies use of illicit substances. Poor historian doesn't remember falls or any injuries. Denies chest pain, syncope, urinary incontinence or tongue bitting. He now feels like his normal self without confusion or mood changes. He states adherence with metformin and insulin 20 units. He is requesting more ice cream. In ED, vitals afebrile HR 93 BP 87/63 and RR 16 100%. EtOH 98. Glucose 444 and multiple electrolyte abnormalities with hypokalemia 3.5 and hypomagnesium 1.4 - given oral Potassium 40 meq. Given 1 L IVF and food. Chest X-ray and EKG no acute. PMHx; hepatitis C, DM with ulcers, and polysubstance abuse. Smoker 20 pk-yr. No family hx ID or arrhythmias. Past Med Surg Social Fam HX - Past Medical History Medical history: arthritis, diabetes, GERD, hepatitis, hyperlipidemia, hypertension, osteoporosis, seizures, syncope, other Additional medical history: ever abuse/ drug abuse. Psychiatric history: anxiety, depression - Past Surgical History Surgical History: cholecystectomy Additional surgical history: cyst on abdomen removed - Social History Smoking Status: Current every day smoker Smokeless Tobacco Status: No Alcohol use: heavy Drug use: cocaine, marijuana - Family History Mother Adopted: (manuel historian) Internal Medicine - H&P: Meds Acetaminophen [Tylenol] 650 mg PO Q6HR PRN tablet 01/17/17 [Rx] Insulin DETEMIR [Levemir] 20 unit SQ BID [id number] 01/17/17 [Rx] Insulin LISPRO [HumaLOG] 10 units SQ TIDWM vial 01/17/17 [Rx] Leptospermum Honey GEL [Medihoney Gel] 1 appl TP BID mls 01/17/17 [Rx] Lisinopril [Zestril] 5 mg PO DAILY tablet 01/17/17 [Rx] metFORMIN [Glucophage] 1,000 mg PO BIDWM tablet 01/17/17 [Rx] 3 Allergy/AdvReac Type Severity Reaction Status Date / Time No Known Allergies Allergy Verified 08/02/16 14:50 All Systems PM: A 10-system review of systems was performed and is negative for pertinent findings except as documented above in the HPI. - Constitutional Constitutional: no fatigue, no fever(s), no falls, no weakness - EENT Eyes: no blurry vision - Cardiovascular Cardiovascular ROS IM: no chest pain, no dyspnea, no lightheadedness, no palpitations, no syncope - Respiratory Respiratory: cough, no dyspnea, no wheezing - Gastrointestinal Gastrointestinal: no cramping, no diarrhea, no nausea, no vomiting - Musculoskeletal Musculoskeletal ROS IM: no atrophy - Integumentary Integumentary IM: no non-healing lesions, no other - Neurological Neurological ROS: memory loss, no behavioral changes, no confusion, no dizziness , no frequent falls, no headache(s), no tingling, no vertigo - Psychiatric Psychiatric: memory loss, no anxiety, no depression, no homicidal ideation, no mood swings, no suicidal ideation - Constitutional Vitals: Temp Pulse Resp BP Pulse Ox 98.8 F 86 14 97/70 100 12/06/17 17:33 12/06/17 18:54 12/06/17 18:28 12/06/17 18:54 12/06/17 18:54 General appearance: Present: disheveled, A&O X 3, answers questions appropriately. Absent: pleasant Exam: Laying bed, Poor eye contact and appear apathetic - Head Head exam: Present: atraumatic, normocephalic - Eye Eye exam: Present: EOMI, PERRL - ENT ENT exam: Present: mucous membranes dry, normal oropharynx Additional comments: posterior oral pharynx erythema - Expanded ENT Exam Throat exam: Present: post pharyngeal erythema. Absent: tonsillar erythema, tonsillar exudate - Respiratory Respiratory exam: Present: CTAB. Absent: decreased breath sounds, rales, wheezes - Cardiovascular Cardiovascular exam: Present: RRR. Absent: gallop, rubs - GI/Abdominal GI/Abdominal exam: Present: normal bowel sounds, soft. Absent: mass, tenderness - Extremities Exam Extremities exam: Present: full ROM, radial pulses palpable and symmetrical. Absent: tenderness - Neurological Exam Neurological exam: Present: CN II-XII intact, strengths equal and symetr throughout. Absent: motor sensory deficit, facial droop, speech deficit - Psychiatric Psychiatric exam: Present: depressed, flat affect. Absent: anxious, homicidal ideation, suicidal ideation - Skin Skin exam: Present: abrasion, dry, normal color. Absent: diaphoretic, erythema , warm Additional comments: right ankle Internal Med - H&P Results - Labs CBC & Chem 7: 12/06/17 17:49 12/06/17 17:49 - Assessment and plan (1) Encephalopathy acute Current Visit: Yes Status: Resolved Assessment and plan: Ethyl EtOH 98. Acute memory loss with out current symptoms. Pattern of admits for altered mental status - UDS: cocaine and marijuana - may benefit from out patient evaluation for Wernicke Korsakoff and MRI (2) Hyperglycemia due to type 2 diabetes mellitus Current Visit: Yes Status: Acute Assessment and plan: Uncontrolled DM likely due to non-compliance. Glucose 400s on admit with beta hydroxy of 0.37 but anion gap 10 does not appear to in DKA. Patient conin tue to eat food like icecream during admit . 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 Normalcytic anemia with negative hemoccult, likely possibly due to EtOH and poor diet - repeat CBC in am - consider B12 and folate levels as out patient Qualifiers: Anemia type: unspecified type Qualified Code(s): D64.9 - Anemia, unspecified (5) Cough Current Visit: Yes Status: Acute Assessment and plan: Chest X-ray no acute changes and WBC 5.0; likely URI suspect also suspect underlying undiagnosed COPD based on diaphragm flattening and smoking history. LA 2.5 - tesselon james - dunoblebs PRN - may benefit from out patient PFT (6) Abrasion foot/toe Current Visit: Yes Status: Acute Assessment and plan: routine wound care Qualifiers: Encounter type: initial encounter Laterality: right Qualified Code(s): S90.811A - Abrasion, right foot, initial encounter (7) Hypokalemia Current Visit: Yes Status: Acute Assessment and plan: K 3.2 with Mg 1.4. Likely due to poor PO intake and EtOH abuse - ED gave oral K 40 meq - repeat BMP in am - magnesium 1mg IV (8) DVT prophylaxis Current Visit: No Status: Acute Assessment and plan: heparin sq - Time Spent With Patient Total time spent is greater than 50% in coordination of care (as documented) at patient's floor/unit and/or counseling patient:
[2017-12-06] MEDS ORDERED: Benzonatate 100 MG CAPSULE PO PRN (21:02)
[2017-12-06] MEDS ORDERED: Ipratropium/Albuterol Neb 3 ML IH PRN (21:02)
[2017-12-06 21:58] LABS: Bilirubin,Urine Negative (Negative); Blood,Urine Negative (Negative); Clarity,Urine Clear (Clear); Color,Urine Yellow (Yellow); Glucose,Urine (UA) >=1000 mg/dL (Normal); Ketones,Urine Negative (Negative); Leukocyte Esterase,Urine Negative (Negative); Nitrite,Urine Negative (Negative); PH,Urine 5.5 pH Units (5.0-8.0); Protein,Urine Negative (Neg-Trace); Specific Gravity,Urine 1.024 (1.010-1.025); Urobilinogen,Urine Normal (Normal)
[2017-12-06] MEDS: Insulin DETEMIR 100 UNIT/ML X5UNITS SQ SCH (22:13)
[2017-12-06] MEDS: *HR* Heparin 5,000 UNIT/ML VIAL SQ SCH (22:14)
[2017-12-06] MEDS: Insulin LISPRO 300 UNITS/3 ML VIAL SQ SCH (22:14)
[2017-12-06 22:22] LABS: Amphetamine Screen,Urine Negative ng/mL (Cutoff=1000); Barbiturate Screen,Urine Negative ng/mL (Cutoff=200); Benzodiazepines Screen,Urine Negative ng/mL (Cutoff=200); Cannabinoid Screen,Urine Positive ng/mL (Cutoff = 50); Cocaine Screen,Urine Positive ng/mL (Cutoff= 300); Opiate Screen,Urine Negative ng/mL (Cutoff=300); Phencyclidine Screen,Urine Negative ng/mL (Cutoff=25)
[2017-12-06] MEDS: Magnesium Oxide 400 MG TABLET PO SCH (22:22)
[2017-12-07] MEDS: Insulin LISPRO 300 UNITS/3 ML VIAL SQ SCH ×5 (00:18→17:10)
[2017-12-07 04:42] LABS: Basophils % 0.2 %; Eosinophils # 0.1 K/mcL (0.0-0.6); Eosinophils % 1.6 %; Hematocrit 24.2 % (37.5-50.1); Hemoglobin 8.1 g/dL (12.9-16.9); Immature Granulocytes % 0.2 % (0-4); Lymphocytes # 1.6 K/mcL (0.6-4.6); Lymphocytes % 31.2 %; Mean Corpuscular HGB Conc 33.5 g/dL (31.6-35.5); Mean Corpuscular Volume 83.7 fL (83.0-100.0); Mean Platelet Volume 10.3 fL (9.4-12.4); Monocytes # 0.6 K/mcL (0.0-1.3); Monocytes % 11.1 %; Neutrophils # 2.8 K/mcL (1.6-8.9); Platelet Count 152 K/mcL (140-400); Red Blood Count 2.89 M/mcL (4.19-5.50); Red Cell Distribution Width 12.4 % (11.5-14.5); Segmented Neutrophils % 55.7 %
[2017-12-07 05:05] LABS: BUN/Creatinine Ratio 13 (6-26); Blood Urea Nitrogen 11 mg/dL (8-23); Calcium 8.8 mg/dL (8.6-10.3); Carbon Dioxide 26 mEq/L (23-29); Chloride 110 mEq/L (98-107); Glucose 57 mg/dL (70-105); Osmolality,Calculated 291 (280-300); Potassium 3.6 mEq/L (3.5-5.1); Sodium 142 mEq/L (136-145); eGFR For Non-African Americans > 60 (> 60)
[2017-12-07] MEDS: *HR* Heparin 5,000 UNIT/ML VIAL SQ SCH ×3 (05:15→21:10)
[2017-12-07] MEDS ORDERED: Insulin LISPRO 300 UNITS/3 ML VIAL SQ SCH ×3 (07:30→21:00)
[2017-12-07] MEDS: Magnesium Oxide 400 MG TABLET PO SCH (08:07)
[2017-12-07] MEDS ORDERED: Thiamine (B-1) 100 MG, Folic Acid 1 MG, MVI, adult with vitamin K 10 ML in 0.9 % Sodi... IVPB SCH (18:00)
--- NOTE | 2017-12-07 18:31 | Internal Med Progress Note ---
Hospitalist Progress Note - Encounter Date of Encounter: 12/07/17 Time of Encounter: 18:00 - Subjective Interval History: Mr. Proctor today is alert and oriented with no complaints he is resting comfortably in hospital bed he appears by the look of history that he has had several servings of ice cream which seems appears to be his favorite. When questioned about his positive cocaine use he does state that he uses cocaine daily along with marijuana also states that he uses alcohol with 2-3 shots of hard liquor and he" per day and question regarding how he obtains his cocaine as he states he lives in a skilled nursing on [address] he states that just by hanging out and people give it to me free.. - Exam Vitals: Temp Pulse Resp BP Pulse Ox 99.1 F 71 17 112/73 100 12/07/17 17:01 12/07/17 17:01 12/07/17 17:01 12/07/17 17:01 12/07/17 17:01 Exam: As above - Assessment and Plan (1) Alcoholism /alcohol abuse Current Visit: Yes Status: Chronic Assessment and Plan: It appears patient was found on the street by police was brought to the emergency room for active intoxication Upon admission he was found to be positive for cocaine marijuana with a high as alcohol level of 98. We will continue to monitor for any signs and symptoms of DVT is (2) Polysubstance abuse Current Visit: No Status: Chronic Assessment and Plan: Patient states that he does get his cocaine on a daily he was he lives in a skilled nursing and when asked what he can purchase this assessment he is being monitored by his skilled nursing. He states that he just hangs around the yard at the skilled nursing and people come up and give it to him free We will continue to monitor for DTs will start him on some folic acid and thiamine by mouth We will continue the thiamine B1 vitamin B-1 IV piggyback daily 2 more packs (3) Diabetes Current Visit: No Status: Chronic Assessment and Plan: Patient has long-standing history of uncontrolled diabetes. Glucose remains elevated at 249 which is improved over admission at 357 We will continue to monitor with insulin therapy and sliding scale basal bolus insulin - Summary of Assessment and Plan Summary of Assessment and Plan: Hitesh is a 60-year-old 62-year-old -[place] male who was found on the streets per law-enforcement was brought to the emergency room for admission. Review of labs shows that he was positive for cocaine marijuana and high ethanol level of 198. Chest x-ray was obtained and reviewed and showed no acute cortical pulmonary abnormality. Today he is resting quietly in his room and he is not chest are very ice cream as possible. He denies any chest pain shortness of breath swelling of his feet or legs. Denies any problems with bowels or bladder. We will continue to monitor him for any DTRs as he does have daily cocaine use. And continue his medications for hypertension, type 2 diabetes and DVT prophylaxis - Time Spent with Patient Total time spent is greater than 50% in coordination of care (as documented) at patient's floor/unit and/or counseling patient: less than 15 minutes Plan of Care Discussed with: patient Internal Medicine: Result - Labs CBC & Chem 7: 12/07/17 04:04 12/07/17 04:04 Labs: Short CBC 12/07/17 Range/Units 04:04 WBC 5.0 (4.3-11.1) K/mcL Hgb 8.1 L (12.9-16.9) g/dL Hct 24.2 L (37.5-50.1) % Plt Count 152 (140-400) K/mcL Neutrophils # 2.8 (1.6-8.9) K/mcL BMP 12/07/17 04:04 Sodium 142 D Potassium 3.6 Chloride 110 H Carbon Dioxide 26 BUN 11 Creatinine 0.82 Glucose 57 L Calcium 8.8 Urine 12/06/17 Range/Units 21:48 Urine Color Yellow (Yellow) Urine Clarity Clear (Clear) Urine pH 5.5 (5.0-8.0) pH Units Ur Specific [place] 1.024 (1.010-1.025) Urine Protein Negative (Neg-Trace) mg/dL Urine Glucose (UA) >=1000 H (Normal) mg/dL - ABG Interpretation ABG results: PT/INR, D-dimer PT 12.6 Seconds (9.4-12.1) H 12/06/17 17:49 Consult Discharge Plan - Plan Referrals: NONE,PCP [Primary Care Provider] - (3) Diabetes Qualifiers: Diabetes mellitus type: type 2 Diabetes mellitus judicial clerk insulin use: with judicial clerk use Diabetes mellitus complication status: with skin complications Diabetes mellitus complication detail: with foot ulcer Qualified Code(s): E11.621 - Type 2 diabetes mellitus with foot ulcer; L97.509 - Non-pressure chronic ulcer of other part of unspecified foot with unspecified severity; L97.509 - Non-pressure chronic ulcer of other part of unspecified foot with unspecified severity; L97.509 - Non-pressure chronic ulcer of other part of unspecified foot with unspecified severity; L97.509 - Non-pressure chronic ulcer of other part of unspecified foot with unspecified severity; 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
[2017-12-07] MEDS ORDERED: Folic Acid 1 MG TABLET PO SCH (18:45)
[2017-12-07] MEDS: Insulin DETEMIR 100 UNIT/ML X5UNITS SQ SCH (21:10)
[2017-12-08] MEDS: *HR* Heparin 5,000 UNIT/ML VIAL SQ SCH ×2 (06:01→12:55)
[2017-12-08] MEDS: Magnesium Oxide 400 MG TABLET PO SCH (07:37)
[2017-12-08] MEDS: Insulin LISPRO 300 UNITS/3 ML VIAL SQ SCH ×2 (07:39→12:53)
[2017-12-08 11:19] VITALS: BP 110/73
--- NOTE | 2017-12-08 12:48 | Internal Med Progress Note ---
Hospitalist Progress Note - Encounter Date of Encounter: 12/08/17 Time of Encounter: 12:48 - Exam Vitals: Temp Pulse Resp BP Pulse Ox 98.7 F 76 12 110/73 99 12/08/17 11:17 12/08/17 11:17 12/08/17 11:17 12/08/17 11:17 12/08/17 11:17 - Time Spent with Patient Total time spent is greater than 50% in coordination of care (as documented) at patient's floor/unit and/or counseling patient: Internal Medicine: Result - Labs CBC & Chem 7: 12/07/17 04:04 12/07/17 04:04 - ABG Interpretation ABG results: PT/INR, D-dimer PT 12.6 Seconds (9.4-12.1) H 12/06/17 17:49 Consult Discharge Plan - Plan Referrals: NONE,PCP [Primary Care Provider] -
--- NOTE | 2017-12-08 14:59 | Discharge Summary ---
- NOTES TO OUTPATIENT PROVIDER Notes to Outpatient Provider: PCP in 5 to 7 days Date of Encounter: 12/08/17 Time of Encounter: 14:56 - Discharge Diagnosis (1) Alcoholism /alcohol abuse Priority: Primary Status: Chronic Assessment and Plan: Chronic EtOH with acute memory loss and resolved encephalopathy - IV thiamine, folic. CIWAS with Ativan. Pt back at his baseline and requesting to be discharged. Cessation of ETOH strongly advised. (2) Acute metabolic encephalopathy Priority: Primary Status: Acute Assessment and Plan: Resolved. Pt back at his baseline. (3) Hyperglycemia due to type 2 diabetes mellitus Priority: Secondary Status: Acute Assessment and Plan: Uncontrolled DM likely due to non-compliance. Glucose 400s on admit did not appear to be in DKA. -q4 accu checks as he keeps sneaking food in he should not have on a diabetic diet. - continue home dose insulin of 20 U. Follow up out pt for close monitoring of glucose. Qualifiers: Diabetes mellitus termite treater insulin use: with termite treater use Qualified Code( s): E11.65 - Type 2 diabetes mellitus with hyperglycemia; Z79.4 - intermediate card tender ( current) use of insulin (4) Cough Priority: Secondary Status: Acute Assessment and Plan: occasional and non-productive (5) Abrasion foot/toe Priority: Secondary Status: Acute Assessment and Plan: follow up out pt with PCP. Qualifiers: Encounter type: initial encounter Laterality: right Qualified Code(s): S90.811A - Abrasion, right foot, initial encounter (6) Hypokalemia Priority: Secondary Status: Acute Assessment and Plan: K improved up from 3.2 to 3.6 (7) Medical non-compliance Priority: Secondary Status: Acute (8) Polysubstance abuse Priority: Secondary Status: Chronic Assessment and Plan: UDS positive for cocaine and THC. Cessation strongly advised. Hospital course: Mr. Proctor is a 62 year old male with past medical history of DM and EtOh abuse was found in street and brought to ED, He has no memory of today's events since lunch. He admits to his daily average EtOH intake of one shot of liqueur and three 12 ox beers. He denies use of illicit substances. Poor historian doesn't remember falls or any injuries. Denies chest pain, syncope, urinary incontinence or tongue bitting. By the time of admission, he was feeling like his normal self without confusion or mood changes. He states adherence with metformin and insulin 20 units. He is non-compliant with diabetic diet. Discharge discussed with: patient - Time Spent with Patient Total time spent providing and/or coordinating discharge services: Greater than 30 minutes - Discharge Medications Home Medications: Acetaminophen [Tylenol] 650 mg PO Q6HR PRN tablet 01/17/17 [Rx] Insulin DETEMIR [Levemir] 20 unit SQ BID [id number] 01/17/17 [Rx] Insulin LISPRO [HumaLOG] 10 units SQ TIDWM vial 01/17/17 [Rx] Leptospermum Honey GEL [Medihoney Gel] 1 appl TP BID mls 01/17/17 [Rx] Lisinopril [Zestril] 5 mg PO DAILY tablet 01/17/17 [Rx] metFORMIN [Glucophage] 1,000 mg PO BIDWM tablet 01/17/17 [Rx] Allergies/Adverse Reactions: 3 Allergy/AdvReac Type Severity Reaction Status Date / Time No Known Allergies Allergy Verified 08/02/16 14:50 Date of admission: 12/06/17 20:36 Primary care physician: PCP NONE Consults: 12/06/17 20:38 Consult to Diabetes Education [CONS] Routine Comment: Reason for Consult: DM diet education 12/06/17 20:41 Consult to Shift Nurse Manager [CONS] Routine Reason for SW Consult: found altered, lives in custodial Discharging clinician: Radha Dallas Anticipated date of discharge: 12/08/17 - Constitutional Vitals: Temp Pulse Resp BP Pulse Ox 98.7 F 76 12 110/73 99 12/08/17 11:17 12/08/17 11:17 12/08/17 11:17 12/08/17 11:17 12/08/17 11:17 General appearance: Present: disheveled, A&O X 3, answers questions appropriately. Absent: pleasant Exam: As above - Head Head exam: Present: atraumatic, normocephalic - Eye Eye exam: Present: PERRL, conjuntiva pink, sclera anicteric Pupils: Present: PERRL - Neck Neck exam general surgery: Present: supple, trachea midline. Absent: lymphadenopathy - Respiratory Respiratory exam: Present: CTAB. Absent: accessory muscle use, rales, rhonchi, wheezes - Cardiovascular Cardiovascular exam: Present: RRR, +S1, +S2. Absent: diastolic murmur, gallop, rubs, systolic murmur - GI/Abdominal GI/Abdominal exam: Present: normal bowel sounds, soft, no peritoneal signs. Absent: distended, tenderness - Extremities Exam Extremities exam: Present: warm, radial pulses palpable and symmetrical. Absent : calf tenderness, cyanotic, pedal edema - Neurological Exam Neurological exam: Present: CN II-XII intact, oriented X3, no focal deficits. Absent: pronater drift, facial droop, speech deficit - Skin Skin exam: Present: dry, intact - Patient Status Disposition: Home, Self-Care Condition: Fair Overall status at discharge: patient is back to baseline - Discharge Instructions Follow Up With: NONE,PCP [Primary Care Provider] - - Diet and Activity Activity: increase activity as tolerated Diet: diabetic diet
--- NOTE | 2017-12-09 17:47 | Electrocardiograph Report ---
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
== END 2017-12-08 16:15 | disposition home or self-care (01) ==
LOC: EMEROOARM 17:28 → 3BNU 17:28
PROVIDERS: ADMIT Family Medicine; ATTEND Family Medicine

== ENCOUNTER 2018-10-14 21:47 | Inpatient (IN) ==
[2018-10-14] MEDS ORDERED: Insulin Human Regular 10 UNIT in 0.9 % Sodium Chloride 10 ML IV ONE (21:58)
[2018-10-14] MEDS ORDERED: Albuterol 2.5 MG/3 ML NEBULIZER IH ONE (22:02)
[2018-10-14] MEDS ORDERED: Calcium Gluconate 1gm/50mL 1 GM/50 ML BAG IVPB ONE ×2 (22:02→22:26)
[2018-10-14 22:43] LABS: Basophils % 0.3 %; Eosinophils # 0.2 K/mcL (0.0-0.6); Eosinophils % 1.5 %; Hematocrit 23.8 % (37.5-50.1); Hemoglobin 7.2 g/dL (12.9-16.9); Immature Granulocytes % 0.8 % (0-4); Lymphocytes # 1.4 K/mcL (0.6-4.6); Lymphocytes % 13.3 %; Mean Corpuscular HGB Conc 30.3 g/dL (31.6-35.5); Mean Corpuscular Hemoglobin 25.2 pg (28.0-33.3); Mean Corpuscular Volume 83.2 fL (83.0-100.0); Mean Platelet Volume 10.5 fL (9.4-12.4); Monocytes # 0.5 K/mcL (0.0-1.3); Monocytes % 4.7 %; Neutrophils # 8.2 K/mcL (1.6-8.9); Platelet Count 376 K/mcL (140-400); Red Blood Count 2.86 M/mcL (4.19-5.50); Red Cell Distribution Width 14.7 % (11.5-14.5); Segmented Neutrophils % 79.4 %; White Blood Count 10.3 K/mcL (4.3-11.1)
[2018-10-14 22:44] LABS: VBG HCO3 22 mEq/L (21-27); VBG PCO2 33 mmHg (41-51); VBG PH 7.43 pH Units (7.32-7.42); VBG PO2 87 mmHg (25-50)
[2018-10-14 22:49] LABS: Bilirubin,Urine Negative (Negative); Blood,Urine Moderate (Negative); Clarity,Urine Turbid (Clear); Color,Urine Yellow (Yellow); Glucose,Urine (UA) Normal (Normal); Ketones,Urine Negative (Negative); Leukocyte Esterase,Urine Large (Negative); Nitrite,Urine Negative (Negative); PH,Urine 5.5 pH Units (5.0-8.0); Protein,Urine 30 mg/dL (Neg-Trace); Specific Gravity,Urine 1.018 (1.010-1.025); Urobilinogen,Urine Normal (Normal)
[2018-10-14 22:51] LABS: Bacteria,Urine Many per hpf (None-Few); Squamous Epithelial Cell,Urine Many per lpf (None-Few); WBC,Urine TNTC per hpf (0-3)
[2018-10-14] MEDS: 0.9 % Sodium Chloride 1,000 ML IVC SCH (22:52)
--- NOTE | 2018-10-14 22:52 | Emergency Department Note ---
Disposition Clinical Impression: Hyperkalemia Anemia Qualifiers: Anemia type: unspecified type Qualified Code(s): D64.9 - Anemia, unspecified UTI (urinary tract infection) Qualifiers: Urinary tract infection type: site unspecified Hematuria presence: without hematuria Qualified Code(s): N39.0 - Urinary tract infection, site not specified Hypotension Qualifiers: Hypotension type: unspecified hypotension type Qualified Code(s): I95.9 - Hypotension, unspecified Disposition: Admitted As Inpatient Condition: Fair Referrals: NONE,PCP [Primary Care Provider] - Time of Disposition: 06:05 General Adult HPI - General Stated complaint: critical labs Time Seen by Provider: 10/14/18 21:48 Source: EMS, other Mode of arrival: EMS Limitations: language barrier, physical limitation, other Nursing Notes Reviewed: Yes Vital Signs Reviewed: Yes - History of Present Illness HPI Narrative: 62-year-old male, permanent resident of [facility] that is a DNR CC that presents from the outside facility with abnormal labs. Lab work collected today shows elevated glucose, elevated potassium, elevated BUNs, elevated creatinine. BUN/creatinine ratio is 71, patient looks very dehydrated on exam. Pt is non-verbal and information is provided by EMS as well as paperwork that accompanied him from his SNF. Pt has a wilkins in place and urine in the wilkins bag appears very cloudy. EMS reports wilkins was placed last night, pt is not normally on chronic wilkins care. Pain Scale: 1 - Related Data Previous Rx's Medication Instructions Recorded Budesonide/Formoterol 160/4.5 2 puff IH BIDR inh 08/22/18 [Symbicort 160/4.5] Ferrous Sulfate 325 mg PO BIDWM tablet 08/22/18 Insulin LISPRO [HumaLOG] 0 units SQ TIDAC vial 08/22/18 Ipratropium/Albuterol Neb [Duoneb] 3 ml IH [id number] PRN inhsol 08/22/18 Nicotine Patch [Nicoderm] 21 mg TD DAILY patch.td24 08/22/18 Allergies Allergy/AdvReac Type Severity Reaction Status Date / Time No Known Allergies Allergy Verified 07/27/18 17:30 Limitations: ROS unobtainable due to patients medical condition Past Medical History - Past Medical History Attestation: Yes The following information was validated with the patient. Source: old records reviewed Medical history: Reports: arthritis, diabetes, GERD, hepatitis, hyperlipidemia, hypertension, osteoporosis, seizures, syncope, other Surgical history: Reports: cholecystectomy Psychiatric history: Reports: other - Social History Smoking Status: Former smoker Smokeless Tobacco Status: No Alcohol use: Reports: heavy Drug use: Reports: cocaine, marijuana Physical Exam General: Pt is non-verbal. Thin, cachetic. Moans. Does not make any meaningful attempts to communicate. Pt has contractures and is curled into a ball with arms and legs fully flexed. Head: atraumatic, normocephalic. ENT: No conjunctival injection, no scleral icterus. Mouth is open, poor dentition, mucous membranes are dry. Neuro: Pt is not alert or oriented, does not respond meaningfully to pain, cannot communicate with his voice. Eyes are open. Pulm: Lungs CTAB A/P. No wheezes, rales, ronchi. Cardio: RRR no m/r/g. Abd: Soft, non-distended. Normoactive bowel sounds. No guarding. Non rigid. - General Limitations: physical limitation, other General appearance: lethargic Course Vital Signs Temperature 99.1 F 10/14/18 22:05 Pulse Rate 104 10/14/18 22:05 Respiratory Rate 19 10/14/18 22:05 Blood Pressure 91/61 10/14/18 22:05 O2 Sat by Pulse Oximetry 100 10/14/18 22:05 Temperature 100.4 F H 10/15/18 03:50 Pulse Rate 115 10/15/18 03:50 Respiratory Rate 21 10/15/18 03:50 Blood Pressure 93/58 10/15/18 03:50 O2 Sat by Pulse Oximetry 97 10/15/18 03:50 Oxygen Delivery Oxygen Delivery Room Air Medical Decision Making - [facility] Narrative Medical decision making narrative: 62M, nonverbal, reports to this facility after abnormal lab results were obtained at an outside facility. Will repeat lab work, will administer Calcium gluconate, albuterol, and insulin to treat hyperkalema. Will administer 2L of NaCl and reassess. Suspect that patient will need to be admitted. Pt was Hyperkalemic and was treated with calcium gluconate, albuterol, and insulin. Pt was started on NaCl initially, and was found to be anemic, and at the request of the hospitalist, a unit of PRBCs was ordered and transfused. Pt received a total of 3L while in the department and 1u PRBCs. Pressures were l abile here, ranging between 100s/70s and down to 80s/50s. He was found to have a UTI and was treated with 1g rocephin. Pt did not have family at bedside during his time in the department. He did not engage in meaningful conversation. He was admitted to the hospitalist, Dr. Cabello, who agreed to accept the patient to his service. Pt was closely monitored while in the department. - Medical Records Medical records reviewed: Yes I reviewed the patient's medical records. - Lab Data Lab results reviewed: Yes I reviewed the patient's lab results. Result diagrams: 10/14/18 22:25 10/14/18 22:25 Lab Results 10/14/18 10/14/18 10/14/18 Range/Units 22:18 22:25 22:25 WBC 10.3 (4.3-11.1) K/mcL RBC 2.86 L (4.19-5.50) M/mcL Hgb 7.2 L (12.9-16.9) g/dL Hct 23.8 L (37.5-50.1) % MCV 83.2 (83.0-100.0) fL MCH 25.2 L (28.0-33.3) pg MCHC 30.3 L (31.6-35.5) g/dL RDW 14.7 H (11.5-14.5) % Plt Count 376 (140-400) K/mcL MPV 10.5 (9.4-12.4) fL Immature Gran % 0.8 (0-4) % Seg Neutrophils % 79.4 % Lymphocytes % 13.3 % Monocytes % 4.7 % Eosinophils % 1.5 % Basophils % 0.3 % Neutrophils # 8.2 (1.6-8.9) K/mcL Lymphocytes # 1.4 (0.6-4.6) K/mcL Monocytes # 0.5 (0.0-1.3) K/mcL Eosinophils # 0.2 (0.0-0.6) K/mcL Basophils # 0.0 (0.0-0.2) K/mcL VBG pH (7.32-7.42) pH Units VBG pCO2 (41-51) mmHg VBG pO2 (25-50) mmHg VBG HCO3 (21-27) mEq/L Sodium 144 (136-145) mEq/L Potassium 5.5 H (3.5-5.1) mEq/L Chloride 115 H (98-107) mEq/L Carbon Dioxide 21 L (23-29) mEq/L BUN 99 H (8-23) mg/dL Creatinine 1.08 (0.70-1.30) mg/dL Est GFR ( Amer) > 60 (> 60) Est GFR (Non-Af Amer) > 60 (> 60) BUN/Creatinine Ratio 92 H (6-26) Glucose 437 H (70-105) mg/dL Calculated Osmolality 348 H (280-300) Lactic Acid (0.5-2.2) mmol/L Calcium 9.3 (8.6-10.3) mg/dL Phosphorus (2.7-4.5) mg/dL Magnesium (1.6-2.6) mg/dL Ammonia (16-53) mcmol/L Beta-Hydroxybutyric Acd (0.02-0.27) mmol/L Urine Color Yellow (Yellow) Urine Clarity Turbid A (Clear) Urine pH 5.5 (5.0-8.0) pH Units Ur Specific [place] 1.018 (1.010-1.025) Urine Protein 30 H (Neg-Trace) mg/dL Urine Glucose (UA) Normal (Normal) mg/dL Urine Ketones Negative (Negative) mg/dL Urine Blood Moderate H (Negative) Urine Nitrite Negative (Negative) Urine Bilirubin Negative (Negative) Urine Urobilinogen Normal (Normal) mg/dL Ur Leukocyte Esterase Large H (Negative) Urine Microscopic WBC TNTC H (0-3) per hpf Ur Squamous Epith Cells Many H (None-Few) per lpf Urine Bacteria Many H (None-Few) per hpf Ur Culture Indicated? YES A (NO) Blood Type Antibody Screen Crossmatch 10/14/18 10/14/18 10/14/18 Range/Units 22:25 22:25 22:25 WBC (4.3-11.1) K/mcL RBC (4.19-5.50) M/mcL Hgb (12.9-16.9) g/dL Hct (37.5-50.1) % MCV (83.0-100.0) fL MCH (28.0-33.3) pg MCHC (31.6-35.5) g/dL RDW (11.5-14.5) % Plt Count (140-400) K/mcL MPV (9.4-12.4) fL Immature Gran % (0-4) % Seg Neutrophils % % Lymphocytes % % Monocytes % % Eosinophils % % Basophils % % Neutrophils # (1.6-8.9) K/mcL Lymphocytes # (0.6-4.6) K/mcL Monocytes # (0.0-1.3) K/mcL Eosinophils # (0.0-0.6) K/mcL Basophils # (0.0-0.2) K/mcL VBG pH (7.32-7.42) pH Units VBG pCO2 (41-51) mmHg VBG pO2 (25-50) mmHg VBG HCO3 (21-27) mEq/L Sodium (136-145) mEq/L Potassium (3.5-5.1) mEq/L Chloride (98-107) mEq/L Carbon Dioxide (23-29) mEq/L BUN (8-23) mg/dL Creatinine (0.70-1.30) mg/dL Est GFR ( Amer) (> 60) Est GFR (Non-Af Amer) (> 60) BUN/Creatinine Ratio (6-26) Glucose (70-105) mg/dL Calculated Osmolality (280-300) Lactic Acid 1.5 (0.5-2.2) mmol/L Calcium (8.6-10.3) mg/dL Phosphorus 4.4 (2.7-4.5) mg/dL Magnesium 2.8 H (1.6-2.6) mg/dL Ammonia (16-53) mcmol/L Beta-Hydroxybutyric Acd 0.32 H (0.02-0.27) mmol/L Urine Color (Yellow) Urine Clarity (Clear) Urine pH (5.0-8.0) pH Units Ur Specific [place] (1.010-1.025) Urine Protein (Neg-Trace) mg/dL Urine Glucose (UA) (Normal) mg/dL Urine Ketones (Negative) mg/dL Urine Blood (Negative) Urine Nitrite (Negative) Urine Bilirubin (Negative) Urine Urobilinogen (Normal) mg/dL Ur Leukocyte Esterase (Negative) Urine Microscopic WBC (0-3) per hpf Ur Squamous Epith Cells (None-Few) per lpf Urine Bacteria (None-Few) per hpf Ur Culture Indicated? (NO) Blood Type Antibody Screen Crossmatch 10/14/18 10/15/18 10/15/18 Range/Units 22:42 00:33 01:06 WBC (4.3-11.1) K/mcL RBC (4.19-5.50) M/mcL Hgb (12.9-16.9) g/dL Hct (37.5-50.1) % MCV (83.0-100.0) fL MCH (28.0-33.3) pg MCHC (31.6-35.5) g/dL RDW (11.5-14.5) % Plt Count (140-400) K/mcL MPV (9.4-12.4) fL Immature Gran % (0-4) % Seg Neutrophils % % Lymphocytes % % Monocytes % % Eosinophils % % Basophils % % Neutrophils # (1.6-8.9) K/mcL Lymphocytes # (0.6-4.6) K/mcL Monocytes # (0.0-1.3) K/mcL Eosinophils # (0.0-0.6) K/mcL Basophils # (0.0-0.2) K/mcL VBG pH 7.43 H (7.32-7.42) pH Units VBG pCO2 33 L (41-51) mmHg VBG pO2 87 H (25-50) mmHg VBG HCO3 22 (21-27) mEq/L Sodium (136-145) mEq/L Potassium (3.5-5.1) mEq/L Chloride (98-107) mEq/L Carbon Dioxide (23-29) mEq/L BUN (8-23) mg/dL Creatinine (0.70-1.30) mg/dL Est GFR ( Amer) (> 60) Est GFR (Non-Af Amer) (> 60) BUN/Creatinine Ratio (6-26) Glucose (70-105) mg/dL Calculated Osmolality (280-300) Lactic Acid (0.5-2.2) mmol/L Calcium (8.6-10.3) mg/dL Phosphorus (2.7-4.5) mg/dL Magnesium (1.6-2.6) mg/dL Ammonia 27 (16-53) mcmol/L Beta-Hydroxybutyric Acd (0.02-0.27) mmol/L Urine Color (Yellow) Urine Clarity (Clear) Urine pH (5.0-8.0) pH Units Ur Specific [place] (1.010-1.025) Urine Protein (Neg-Trace) mg/dL Urine Glucose (UA) (Normal) mg/dL Urine Ketones (Negative) mg/dL Urine Blood (Negative) Urine Nitrite (Negative) Urine Bilirubin (Negative) Urine Urobilinogen (Normal) mg/dL Ur Leukocyte Esterase (Negative) Urine Microscopic WBC (0-3) per hpf Ur Squamous Epith Cells (None-Few) per lpf Urine Bacteria (None-Few) per hpf Ur Culture Indicated? (NO) Blood Type A POSITIVE Antibody Screen NEGATIVE Crossmatch See Detail - Radiology Data Radiology results reviewed: Yes I reviewed the patient's radiology results. Chest X-Ray 10/14/18 22:05 IMPRESSION: No focal airspace consolidation; technically suboptimal exam. D/ / Go Villagomez / Go Villagomez Interpreting Provider: Go Villagomez - EKG Data EKG #1 EKG attestation: Yes I reviewed and interpreted this EKG. EKG results narrative: HR 105, rhythm sinus tachycardia, axis normal. Intervals within normal limits. N o ST segment elevation or depression.
[2018-10-14 23:03] LABS: BUN/Creatinine Ratio 92 (6-26); Blood Urea Nitrogen 99 mg/dL (8-23); Calcium 9.3 mg/dL (8.6-10.3); Carbon Dioxide 21 mEq/L (23-29); Chloride 115 mEq/L (98-107); Glucose 437 mg/dL (70-105); Osmolality,Calculated 348 (280-300); Potassium 5.5 mEq/L (3.5-5.1); Sodium 144 mEq/L (136-145); eGFR For African Americans > 60 (> 60); eGFR For Non-African Americans > 60 (> 60)
[2018-10-14 23:04] LABS: Magnesium 2.8 mg/dL (1.6-2.6); Phosphorous 4.4 mg/dL (2.7-4.5)
[2018-10-15] MEDS ORDERED: cefTRIAXone 1,000 MG in 0.9 % Sodium Chloride Mini Bag 100 ML IVPB ONE (00:19)
[2018-10-15] MEDS ORDERED: 0.9 % Sodium Chloride 1,000 ML IVC ONE (00:19)
[2018-10-15] MEDS: 0.9 % Sodium Chloride 1,000 ML IVC SCH ×3 (01:45→16:33)
[2018-10-15] MEDS ORDERED: Acetaminophen 650 MG RECTAL SUPP RC ONE (03:12)
[2018-10-15] MEDS ORDERED: 0.9 % Sodium Chloride 1,000 ML ONE (05:22)
--- NOTE | 2018-10-15 06:21 | Internal Med History&Physical ---
<Smith Cabello A - Last Filed: 10/15/18 07:18> Date of Encounter: 10/15/18 Internal Medicine - H&P: HPI History of present illness: Mr. Proctor is a 62 year old male Internal Medicine - H&P: Meds Budesonide/Formoterol 160/4.5 [Symbicort 160/4.5] 2 puff IH BIDR inh 08/22/18 [Rx] Ferrous Sulfate 325 mg PO BIDWM tablet 08/22/18 [Rx] Insulin LISPRO [HumaLOG] 0 units SQ TIDAC vial 08/22/18 [Rx] Ipratropium/Albuterol Neb [Duoneb] 3 ml IH [id number] PRN inhsol 08/22/18 [Rx] Nicotine Patch [Nicoderm] 21 mg TD DAILY patch.td24 08/22/18 [Rx] Allergy/AdvReac Type Severity Reaction Status Date / Time No Known Allergies Allergy Verified 07/27/18 17:30 All Systems PM: A 10-system review of systems was performed and is negative for pertinent findings except as documented above in the HPI. - Constitutional Vitals: Temp Pulse Resp BP Pulse Ox 100.1 F H 109 21 90/63 100 10/15/18 06:30 10/15/18 06:30 10/15/18 06:30 10/15/18 06:30 10/15/18 06:30 Internal Med - H&P Results - Labs CBC & Chem 7: 10/14/18 22:25 10/14/18 22:25 Labs: Short CBC 10/14/18 Range/Units 22:25 WBC 10.3 (4.3-11.1) K/mcL Hgb 7.2 L (12.9-16.9) g/dL Hct 23.8 L (37.5-50.1) % Plt Count 376 (140-400) K/mcL Neutrophils # 8.2 (1.6-8.9) K/mcL BMP 10/14/18 22:25 Sodium 144 Potassium 5.5 H Chloride 115 H Carbon Dioxide 21 L BUN 99 H Creatinine 1.08 Glucose 437 H Calcium 9.3 Urine 10/14/18 Range/Units 22:18 Urine Color Yellow (Yellow) Urine Clarity Turbid A (Clear) Urine pH 5.5 (5.0-8.0) pH Units Ur Specific [place] 1.018 (1.010-1.025) Urine Protein 30 H (Neg-Trace) mg/dL Urine Glucose (UA) Normal (Normal) mg/dL - ABG Interpretation ABG results: 10/14/18 22:42 VBG pH 7.43 H VBG pCO2 33 L VBG pO2 87 H VBG HCO3 22 - Impressions ITS Impressions Chest X-Ray 10/14/18 22:05 IMPRESSION: No focal airspace consolidation; technically suboptimal exam. D/ / Go Villagomez / Go Villagomez Interpreting Provider: Go Villagomez - Time Spent With Patient Total time spent is greater than 50% in coordination of care (as documented) at patient's floor/unit and/or counseling patient: - Attending Attestation Patient was seen and examined. Labs and imaging reviewed. History obtained from medical records as patient is nonverbal at baseline. Case discussed with resident. Agree with assessment and plan of care. In short patient is a 62-year-old male with a past medical history of anoxic brain injury, nonverbal at baseline with contractures and G-tube who presented from long term for evaluation of an abnormal laboratory results. Specifically, laboratory results were concerning for an elevation in BUN, creatinine, hyperkalemia and decreased urine output. Patient found to have a creatinine of 1.6 and potassium of 6.2. He was given 1 L fluid at his facility and transferred to our ED for further evaluation. On arrival, patient appeared dry, was hypotensive with a systolic blood pressure bearing in the 70s to 90s, tachycardic with a heart rate in the 120s saturating 100% on room air. Repeat lipid blood work here was notable for a hemoglobin of 7.2 which was 8.1 at the facility prior to receiving fluids. Potassium was 5.5, BUN 99 and creatinine of 1.08. Patient did have an elevated blood glucose of 437. A VBG did not show any evidence of acidosis. Patient initially presumed to be significantly dehydrated considering a sodium 144 in the setting of a blood glucose of 437 with a corrected sodium of 149. UA suggestive of UTI with reports of recent replacement of Lamb catheter yesterday in the setting of chronic indwelling Lamb. Patient was given 3 L of fluid boluses with improvement in blood pressure. EKG was obtained which showed sinus tachycardia in the absence of any significant ST or T-wave changes. Patient was given calcium gluconate, albuterol and insulin for correction of hyperkalemia. Patient's anemia appears to be chronic and at baseline despite decreasing from 8.1-7.2 which I suspect is dilutional after receiving fluids at his long-term care facility prior to transfer. On my assessment of the patient, he was a nonverbal, somnolent and did not respond to verbal stimuli; patient squinted his eyelids when attempting examination of the eyes Patient did withdraw to mild pain. According to his care facility, patient is at his baseline mentally. Noted to have dry mucous membranes. Lungs clear to auscultation. No evidence of murmur. There was some pus noted around the G- tube site which was sent for culture. Blood and urine cultures were obtained. Patient admitted for hypotension likely secondary to dehydration in the setting of hypernatremia and possible sepsis of urologic origin. Lactic acid has remained within normal limits. We will continue aggressive fluid support and antibiotics with ceftriaxone for possible UTI. Follow-up G-tube site culture. We will start patient on a blood glucose checks every 4 hours with sliding scale. Reassess potassium. Trend H&H after completion of 1 unit of packed red blood cells. Patient is DNR/DNI <Yordy Wright - Last Filed: 10/15/18 09:07> Date of Encounter: 10/15/18 Time of Encounter: 06:17 Internal Medicine - H&P: HPI History of present illness: Mr. Proctor is a 62 year old male with a PMH of anoxic brain injury (nonverbal at baseline), arthritis, diabetes, GERD, HLD, seizure disorder, HTN, hepatitis, and osteoporosis who presented to [facility] ED on 10/15/18 from an extended care facility due to abnormal labs. Labs demonstrated elevated glucose, potassium, BUN, and creatinine. He appeared to be dehydrated on exam. He was not able to provide any history. He has a Lamb catheter, and his Lamb bag appeared cloudy. Upon arrival, vital signs demonstrated an elevated temperature 99.1, an elevated heart rate at 104, a low blood pressure 91/61. Labs showed an elevated potassium of 5.5, elevated glucose of 437, a low hemoglobin 7.2, and elevated hydroxybutyric acid of 0.32. VBG demonstrated pH 7.43, CO2 33, O2 87, and bicarbonate 22. Urinalysis showed turbid urine, moderate amount of blood, large amount of leukocyte esterase, TNTC white blood cells, and many urine bacteria. Patient received 10 units of IV insulin, 10 mg of albuterol, and 1 g of calcium gluconate for hyperkalemia. He also received 2 L of normal saline, and a dose of Rocephin. A unit of packed red blood cells was ordered, and blood cultures 2 were ordered. During my interview, patient was nonverbal. He did respond to verbal stimuli by looking in my direction, but otherwise did not answer any questions or follow commands. He does not appear to be in any visible distress at this time. His blood pressure has improved after administration of IV fluids. Per chart review, patient appears to have chronic anemia at baseline. Plan is to admit to the hospitalist service for hypotension secondary to dehydration and possible sepsis. Potential infections versus include generic tract infection and infection of G-tube. Of note, lactate is within normal limits. We will continue Rocephin 1 g daily and aggressive fluid support. Will tailor antibiotic therapy accordingly. Due to patient's elevated blood glucose, we will start sliding scale insulin and check glucose levels every 4 hours. Potassium will be reassessed, and we will trend H&H after transfusion is complete. Past Med Surg Social Fam HX - Past Medical History Medical history: arthritis, diabetes, GERD, hepatitis, hyperlipidemia, hypertension, osteoporosis, seizures, syncope, other Additional medical history: ever abuse/ drug abuse. Psychiatric history: other - Past Surgical History Surgical History: cholecystectomy Additional surgical history: cyst on abdomen removed - Social History Smoking Status: Former smoker Smokeless Tobacco Status: No Alcohol use: heavy Drug use: cocaine, marijuana - Family History Mother Adopted: (poor historian) Living Status: Hx Family Cardiac Disorders: No Hx Family Respiratory Disorders: No Hx Family Cancer: No Hx Family GI Disorders: No Hx Family Endocrine Disorder: No ROS unobtainable: due to mental status All Systems PM: A 10-system review of systems was performed and is negative for pertinent findings except as documented above in the HPI. - Constitutional Vitals: Temp Pulse Resp BP Pulse Ox 100.4 F H 115 21 93/58 97 10/15/18 03:50 10/15/18 03:50 10/15/18 03:50 10/15/18 03:50 10/15/18 03:50 Exam: General: Thin, nonverbal, no apparent distress Head: atraumatic, normocephalic; sunken-appearing eyes, dry mucous membranes Eye: PERRL, EOMI Respiratory: Diminished breath sounds bilaterally, short inspiratory phase Cardiovascular: RRR, +S1, +S2; no murmurs, rubs, gallops Abdomen: Soft, nondistended Extremities: warm, contracted; patient called up into a ball Psychiatric: Unable to assess; Non-conversant, responds to verbal stimuli but does not follow commands Skin: Dry, intact Internal Med - H&P Results - Labs CBC & Chem 7: 10/14/18 22:25 10/14/18 22:25 Labs: Short CBC 10/14/18 Range/Units 22:25 WBC 10.3 (4.3-11.1) K/mcL Hgb 7.2 L (12.9-16.9) g/dL Hct 23.8 L (37.5-50.1) % Plt Count 376 (140-400) K/mcL Neutrophils # 8.2 (1.6-8.9) K/mcL BMP 10/14/18 22:25 Sodium 144 Potassium 5.5 H Chloride 115 H Carbon Dioxide 21 L BUN 99 H Creatinine 1.08 Glucose 437 H Calcium 9.3 Urine 10/14/18 Range/Units 22:18 Urine Color Yellow (Yellow) Urine Clarity Turbid A (Clear) Urine pH 5.5 (5.0-8.0) pH Units Ur Specific [place] 1.018 (1.010-1.025) Urine Protein 30 H (Neg-Trace) mg/dL Urine Glucose (UA) Normal (Normal) mg/dL - ABG Interpretation ABG results: 10/14/18 22:42 VBG pH 7.43 H VBG pCO2 33 L VBG pO2 87 H VBG HCO3 22 - Impressions ITS Impressions Chest X-Ray 10/14/18 22:05 IMPRESSION: No focal airspace consolidation; technically suboptimal exam. D/ / Go Villagomez / Go Villagomez Interpreting Provider: Go Villagomez - Assessment and Plan (1) Sepsis Current Visit: Yes Status: Acute Assessment and plan: - Patient met 2/4 SIRS criteria with fever of 100.9 and tachycardia at 117 bpm - Likely secondary to urinary tract infection; patient has history of chronic Lamb, and Lamb catheter bag was noted to be cloudy on arrival - He was given 1 dose of Rocephin in the emergency department - Blood cultures 2 are ordered and currently pending - Lactate was within normal limits - Since arrival, temperature has decreased to 98.3 Plan - Continue Rocephin 1 g daily - Blood and urine cultures are pending; continue to follow cultures and tailor antibiotic therapy accordingly Qualifiers: Qualified Code(s): A41.9 - Sepsis, unspecified organism (2) UTI (urinary tract infection) Current Visit: Yes Status: Acute Assessment and plan: - Patient presented with a Lamb in place; Lamb bag was noted to be cloudy - Urinalysis was suggestive of UTI, with a heart amount of leukocyte esterase, TNTC white blood cells, and many urine bacteria - 1 g of Rocephin was given in the emergency department Plan - Continue Rocephin 1 g daily - Urine culture is ordered and currently pending; tailor antibiotic therapy accordingly Qualifiers: Urinary tract infection type: site unspecified Hematuria presence: without hematuria Qualified Code(s): N39.0 - Urinary tract infection, site not specified (3) Hyperkalemia Current Visit: Yes Status: Acute Assessment and plan: - Laboratory analysis demonstrated an elevated potassium of 5.5 - Etiology is unknown at this time - In the emergency department, patient received 10 units of IV insulin, 10 mg of albuterol, and 1 g of calcium gluconate Plan - EKG is ordered and currently pending - Repeat labs to ensure that K+ has decreased; a repeat BMP is ordered for 09:00 AM (4) Anemia Current Visit: Yes Status: Acute Assessment and plan: - Hemoglobin was found to be low at 7.2 - Per chart review, patient's hemoglobin at baseline is approximately 7-8 - Etiology unknown at this time; no apparent source of bleeding - 1 unit of packed red blood cells was ordered in the emergency department - At the time of my assessment, patient was receiving one unit of pRBCs Plan: - We will order FOBT - Repeat H/H once tranfusion is complete; continue to trend Q6 hours and transfuse as necessary Qualifiers: Anemia type: unspecified type Qualified Code(s): D64.9 - Anemia, unspecified (5) Hyperglycemia Current Visit: Yes Status: Acute Assessment and plan: - Per chart review, patient does have a known history of diabetes - Presented with an elevated glucose of 437 Plan: - Q4 Accu-Cheks have been ordered, and sliding scale insulin has been started - If glucose does not remain adequately controlled, adjustment may be needed to current regimen - Time Spent With Patient Total time spent is greater than 50% in coordination of care (as documented) at patient's floor/unit and/or counseling patient:
--- NOTE | 2018-10-15 06:22 | Emergency Department Note ---
Disposition Clinical Impression: Hyperkalemia Anemia Qualifiers: Anemia type: unspecified type Qualified Code(s): D64.9 - Anemia, unspecified UTI (urinary tract infection) Qualifiers: Urinary tract infection type: site unspecified Hematuria presence: without hematuria Qualified Code(s): N39.0 - Urinary tract infection, site not specified Hypotension Qualifiers: Hypotension type: unspecified hypotension type Qualified Code(s): I95.9 - Hypotension, unspecified Disposition: Admitted As Inpatient Condition: Fair Referrals: NONE,PCP [Primary Care Provider] - Time of Disposition: 06:05 General Adult HPI - General Chief complaint: ED General Medical Stated complaint: critical labs Time Seen by Provider: 10/14/18 21:48 Source: EMS, other Mode of arrival: EMS Limitations: language barrier, physical limitation, other Nursing Notes Reviewed: Yes Vital Signs Reviewed: Yes - History of Present Illness Pain Scale: 0 - Related Data Previous Rx's Medication Instructions Recorded Budesonide/Formoterol 160/4.5 2 puff IH BIDR inh 08/22/18 [Symbicort 160/4.5] Ferrous Sulfate 325 mg PO BIDWM tablet 08/22/18 Insulin LISPRO [HumaLOG] 0 units SQ TIDAC vial 08/22/18 Ipratropium/Albuterol Neb [Duoneb] 3 ml IH [id number] PRN inhsol 08/22/18 Nicotine Patch [Nicoderm] 21 mg TD DAILY patch.[id number] 08/22/18 Allergies Allergy/AdvReac Type Severity Reaction Status Date / Time No Known Allergies Allergy Verified 07/27/18 17:30 Past Medical History - Past Medical History Medical history: Reports: arthritis, diabetes, GERD, hepatitis, hyperlipidemia, hypertension, osteoporosis, seizures, syncope, other Surgical history: Reports: cholecystectomy Psychiatric history: Reports: other - Social History Smoking Status: Former smoker Smokeless Tobacco Status: No Alcohol use: Reports: heavy Drug use: Reports: cocaine, marijuana Physical Exam - General Limitations: language barrier, physical limitation, other General appearance: lethargic Course Vital Signs Temperature 99.1 F 10/14/18 22:05 Pulse Rate 104 10/14/18 22:05 Respiratory Rate 10/14/18 22:05 Blood Pressure 91/61 10/14/18 22:05 O2 Sat by Pulse Oximetry 100 10/14/18 22:05 Temperature 100.4 F H 10/15/18 03:50 Pulse Rate 115 10/15/18 03:50 Respiratory Rate 21 10/15/18 03:50 Blood Pressure 93/58 10/15/18 03:50 O2 Sat by Pulse Oximetry 97 10/15/18 03:50 Oxygen Delivery Oxygen Delivery Room Air Medical Decision Making - Medical Records Medical records reviewed: Yes I reviewed the patient's medical records. - Lab Data Lab results reviewed: Yes I reviewed the patient's lab results. Result diagrams: 10/14/18 22:25 10/14/18 22:25 Lab Results 10/14/18 10/14/18 10/14/18 Range/Units 22:18 22:25 22:25 WBC 10.3 (4.3-11.1) K/mcL RBC 2.86 L (4.19-5.50) M/mcL Hgb 7.2 L (12.9-16.9) g/dL Hct 23.8 L (37.5-50.1) % MCV 83.2 (83.0-100.0) fL MCH 25.2 L (28.0-33.3) pg MCHC 30.3 L (31.6-35.5) g/dL RDW 14.7 H (11.5-14.5) % Plt Count 376 (140-400) K/mcL MPV 10.5 (9.4-12.4) fL Immature Gran % 0.8 (0-4) % Seg Neutrophils % 79.4 % Lymphocytes % 13.3 % Monocytes % 4.7 % Eosinophils % 1.5 % Basophils % 0.3 % Neutrophils # 8.2 (1.6-8.9) K/mcL Lymphocytes # 1.4 (0.6-4.6) K/mcL Monocytes # 0.5 (0.0-1.3) K/mcL Eosinophils # 0.2 (0.0-0.6) K/mcL Basophils # 0.0 (0.0-0.2) K/mcL VBG pH (7.32-7.42) pH Units VBG pCO2 (41-51) mmHg VBG pO2 (25-50) mmHg VBG HCO3 (21-27) mEq/L Sodium 144 (136-145) mEq/L Potassium 5.5 H (3.5-5.1) mEq/L Chloride 115 H (98-107) mEq/L Carbon Dioxide 21 L (23-29) mEq/L BUN 99 H (8-23) mg/dL Creatinine 1.08 (0.70-1.30) mg/dL Est GFR ( Amer) > 60 (> 60) Est GFR (Non-Af Amer) > 60 (> 60) BUN/Creatinine Ratio 92 H (6-26) Glucose 437 H (70-105) mg/dL Calculated Osmolality 348 H (280-300) Lactic Acid (0.5-2.2) mmol/L Calcium 9.3 (8.6-10.3) mg/dL Phosphorus (2.7-4.5) mg/dL Magnesium (1.6-2.6) mg/dL Ammonia (16-53) mcmol/L Beta-Hydroxybutyric Acd (0.02-0.27) mmol/L Urine Color Yellow (Yellow) Urine Clarity Turbid A (Clear) Urine pH 5.5 (5.0-8.0) pH Units Ur Specific [facility] 1.018 (1.010-1.025) Urine Protein 30 H (Neg-Trace) mg/dL Urine Glucose (UA) Normal (Normal) mg/dL Urine Ketones Negative (Negative) mg/dL Urine Blood Moderate H (Negative) Urine Nitrite Negative (Negative) Urine Bilirubin Negative (Negative) Urine Urobilinogen Normal (Normal) mg/dL Ur Leukocyte Esterase Large H (Negative) Urine Microscopic WBC TNTC H (0-3) per hpf Ur Squamous Epith Cells Many H (None-Few) per lpf Urine Bacteria Many H (None-Few) per hpf Ur Culture Indicated? YES A (NO) Blood Type Antibody Screen Crossmatch 10/14/18 10/14/18 10/14/18 Range/Units 22:25 22:25 22:25 WBC (4.3-11.1) K/mcL RBC (4.19-5.50) M/mcL Hgb (12.9-16.9) g/dL Hct (37.5-50.1) % MCV (83.0-100.0) fL MCH (28.0-33.3) pg MCHC (31.6-35.5) g/dL RDW (11.5-14.5) % Plt Count (140-400) K/mcL MPV (9.4-12.4) fL Immature Gran % (0-4) % Seg Neutrophils % % Lymphocytes % % Monocytes % % Eosinophils % % Basophils % % Neutrophils # (1.6-8.9) K/mcL Lymphocytes # (0.6-4.6) K/mcL Monocytes # (0.0-1.3) K/mcL Eosinophils # (0.0-0.6) K/mcL Basophils # (0.0-0.2) K/mcL VBG pH (7.32-7.42) pH Units VBG pCO2 (41-51) mmHg VBG pO2 (25-50) mmHg VBG HCO3 (21-27) mEq/L Sodium (136-145) mEq/L Potassium (3.5-5.1) mEq/L Chloride (98-107) mEq/L Carbon Dioxide (23-29) mEq/L BUN (8-23) mg/dL Creatinine (0.70-1.30) mg/dL Est GFR ( Amer) (> 60) Est GFR (Non-Af Amer) (> 60) BUN/Creatinine Ratio (6-26) Glucose (70-105) mg/dL Calculated Osmolality (280-300) Lactic Acid 1.5 (0.5-2.2) mmol/L Calcium (8.6-10.3) mg/dL Phosphorus 4.4 (2.7-4.5) mg/dL Magnesium 2.8 H (1.6-2.6) mg/dL Ammonia (16-53) mcmol/L Beta-Hydroxybutyric Acd 0.32 H (0.02-0.27) mmol/L Urine Color (Yellow) Urine Clarity (Clear) Urine pH (5.0-8.0) pH Units Ur Specific [facility] (1.010-1.025) Urine Protein (Neg-Trace) mg/dL Urine Glucose (UA) (Normal) mg/dL Urine Ketones (Negative) mg/dL Urine Blood (Negative) Urine Nitrite (Negative) Urine Bilirubin (Negative) Urine Urobilinogen (Normal) mg/dL Ur Leukocyte Esterase (Negative) Urine Microscopic WBC (0-3) per hpf Ur Squamous Epith Cells (None-Few) per lpf Urine Bacteria (None-Few) per hpf Ur Culture Indicated? (NO) Blood Type Antibody Screen Crossmatch 10/14/18 10/15/18 10/15/18 Range/Units 22:42 00:33 01:06 WBC (4.3-11.1) K/mcL RBC (4.19-5.50) M/mcL Hgb (12.9-16.9) g/dL Hct (37.5-50.1) % MCV (83.0-100.0) fL MCH (28.0-33.3) pg MCHC (31.6-35.5) g/dL RDW (11.5-14.5) % Plt Count (140-400) K/mcL MPV (9.4-12.4) fL Immature Gran % (0-4) % Seg Neutrophils % % Lymphocytes % % Monocytes % % Eosinophils % % Basophils % % Neutrophils # (1.6-8.9) K/mcL Lymphocytes # (0.6-4.6) K/mcL Monocytes # (0.0-1.3) K/mcL Eosinophils # (0.0-0.6) K/mcL Basophils # (0.0-0.2) K/mcL VBG pH 7.43 H (7.32-7.42) pH Units VBG pCO2 33 L (41-51) mmHg VBG pO2 87 H (25-50) mmHg VBG HCO3 22 (21-27) mEq/L Sodium (136-145) mEq/L Potassium (3.5-5.1) mEq/L Chloride (98-107) mEq/L Carbon Dioxide (23-29) mEq/L BUN (8-23) mg/dL Creatinine (0.70-1.30) mg/dL Est GFR ( Amer) (> 60) Est GFR (Non-Af Amer) (> 60) BUN/Creatinine Ratio (6-26) Glucose (70-105) mg/dL Calculated Osmolality (280-300) Lactic Acid (0.5-2.2) mmol/L Calcium (8.6-10.3) mg/dL Phosphorus (2.7-4.5) mg/dL Magnesium (1.6-2.6) mg/dL Ammonia 27 (16-53) mcmol/L Beta-Hydroxybutyric Acd (0.02-0.27) mmol/L Urine Color (Yellow) Urine Clarity (Clear) Urine pH (5.0-8.0) pH Units Ur Specific [facility] (1.010-1.025) Urine Protein (Neg-Trace) mg/dL Urine Glucose (UA) (Normal) mg/dL Urine Ketones (Negative) mg/dL Urine Blood (Negative) Urine Nitrite (Negative) Urine Bilirubin (Negative) Urine Urobilinogen (Normal) mg/dL Ur Leukocyte Esterase (Negative) Urine Microscopic WBC (0-3) per hpf Ur Squamous Epith Cells (None-Few) per lpf Urine Bacteria (None-Few) per hpf Ur Culture Indicated? (NO) Blood Type A POSITIVE Antibody Screen NEGATIVE Crossmatch See Detail - Radiology Data Radiology results reviewed: Yes I reviewed the patient's radiology results. Chest X-Ray 10/14/18 22:05 IMPRESSION: No focal airspace consolidation; technically suboptimal exam. D/ / Go Villagomez / Go Villagomez Interpreting Provider: Go Villagomez - EKG Data EKG #1 EKG attestation: Yes I reviewed and interpreted this EKG. EKG results narrative: Israel Davies MD, personally evaluated this patient and discussed their management with the resident physician. I reviewed the resident's note and agree with the documented findings, medical decision making, and plan of care. I reviewed the residents documentation and agree with the residents assessment and plan of care. I have personally had face to face time with the patient. I personally supervised and was present for the english/critical portions of the following procedures completed by the resident: EKG interpretation. Critical Care Time Critical Care Time: Yes Total Critical Care Time: 60 Attestation: Critical care performed: Time is exclusive of separately billable procedures. Time includes: direct patient care, patient reassessment, coordination of patient care, interpretation of data (laboratory data, radiology data, and respiratory data), review of patient's medical records, medical consultation and documentation of patient care. Procedures included in critical care time: Procedures excluded from critical care time: Attestation Statement - Attestation Attestation: Israel Davies MD, personally evaluated this patient and discussed their management with the resident physician. I reviewed the resident's note and agree with the documented findings, medical decision making, and plan of care. I reviewed the residents documentation and agree with the residents assessment and plan of care. I have personally had face to face time with the patient. I personally supervised and was present for the english/critical portions of the following procedures completed by the resident: EKG interpretation. 62-year-old male presents to the emergency department by EMS from a [place] [facility] for evaluation of abnormal lab results. Patient has history of anoxic brain injury and is nonverbal with contractures and a G-tube. He is DNR CC arrest. Patient unable to provide any history or review of systems. He is not responding to verbal stimuli or follow commands. He apparently had a Lamb catheter placed last night at the [place] [facility] because of decreased urine output. He had lab work done this morning which revealed significantly elevated BUN, creatinine, potassium, and glucose. He was referred here [facility] for further evaluation of these lab abnormalities. On examination patient is awake but nonverbal and does not follow commands or answer questions. Mucous membranes are markedly dry. Breath sounds are clear and equal bilaterally. Heart regular with a mild tachycardia. Abdomen is soft with no obvious tenderness. No pedal edema. EKG showed sinus tachycardia with ventricular rate of 105. No significant ST segment elevation or depression. No arrhythmia or ectopy. Otherwise normal EKG. Chest x-ray negative. Labs reviewed. Patient does have a significant UTI . Hemoglobin here was 7.2 which appears to be baseline for patient recently. Potassium here was 5.5. His potassium at the [place] [facility] this morning was 6.2. Glucose 437. Patient received IV fluids. The hyperkalemia was treated with albuterol, calcium gluconate, and insulin. He did receive a unit of blood per request the hospitalist. IV antibiotics initiated for the UTI. Patient remained t achycardic and mildly hypotensive throughout his stay in the emergency department. The hospitalist, Dr. Cabello, was consulted and accepted admission of the patient.
[2018-10-15] MEDS ORDERED: Naloxone 0.4 MG/ML INJ IVP PRN (06:50)
[2018-10-15] MEDS ORDERED: Ipratropium/Albuterol Neb 3 ML IH PRN (06:54)
[2018-10-15] MEDS ORDERED: D5% in Water 1,000 ML IVC PRN (06:55)
[2018-10-15] MEDS ORDERED: *HR* Dextrose 50 % in Water (Syg) 50 ML SYRINGE IVP PRN (06:55)
[2018-10-15] MEDS ORDERED: Dextrose Gel 15 GM/37.5 ML TUBE PO PRN ×2 (06:55)
--- NOTE | 2018-10-15 08:19 | Event Note ---
<Jorge Jacobo - Last Filed: 10/15/18 18:39> Date of Encounter: 10/15/18 Time of Encounter: 08:19 SUBJECTIVE: Patient was seen and examined at bedside. Patient was not in any acute distress. However the patient is nonverbal at baseline and could not be assessed verbally. Patient did withdraw and reactive to stimulation and pain. Patient appeared to be somnolent but arousable. Did not appear to be in any pain or discomfort. OBJECTIVE: Vitals: Temperature of 100.1, heart rate 107, blood pressure 100/73, 100% on 2 L. PHYSICAL EXAM: GEN: somnolent, but arousable - NAD, withdrawing to pain, opens eyes to command, incomprehensible sounds GCS 9, nonverbal HEAD: Normocephalic, atraumatic. EYES: PERRL, EOMI, anicteric. ENT: MMM. oropharynx without erythema or drainage. NECK: Supple. No LAD. No stiffness or restricted ROM. No tracheal deviation. HEART: Regular rate and regular rhythm, normal S1/S2, no m/r/g. LUNGS: CTAB, good air exchange bilaterally. No wheezing, rubs, or rhonchi. ABDO: Soft, nontender, nondistended with active bowel sounds. : No suprapubic tenderness or CVA tenderness. Lamb catheter draining dark and cloudy urine. BACK: No obvious stepoffs or deformities. EXT: Without cyanosis, clubbing or edema. SKIN: Warm and dry without any rash. NEURO: Grossly nonfocal. GCS 9. PSYCH: Unable to assess. ASSESSMENT AND PLAN: (1) Sepsis Current Visit: Yes Status: Acute - Patient met 2/4 SIRS criteria with fever of 100.9 and tachycardia at 117 bpm, normal lactate - Likely secondary to urinary tract infection; patient has history of chronic Lamb, and Lamb catheter bag was noted to be cloudy on arrival - Given 1 dose of Rocephin in the ED - Blood cultures 2 are ordered and currently pending - Currently afebrile Plan - Discontinue rocephin, starting vancomycin and zosyn based on previous sensitivities and risk factors - Blood and urine cultures are pending; continue to follow cultures and tailor antibiotic therapy accordingly - MRSA nares was positive (2) UTI (urinary tract infection) Current Visit: Yes Status: Acute - Patient presented with a Lamb in place and was exchanged in the ED; Lamb bag was noted to be cloudy - Urinalysis was suggestive of UTI, with leukocyte esterase, TNTC white blood cells, and many bacteria - 1 g of Rocephin was given in the emergency department Plan - Discontinue rocephin, starting vancomycin and zosyn based on previous sensitivities and risk factors - Urine culture is ordered and currently pending; tailor antibiotic therapy accordingly (3) Hyperkalemia Current Visit: Yes Status: Acute Assessment and plan: - Potassium initially 5.5, down to 5.1 on 10/15 - In the ED, received 10 units of IV insulin, 10 mg of albuterol, and 1 g of calcium gluconate - Etiology is unknown at this time Plan - Assess with EKGs for acute changes - Repeat BMP to monitor K (4) Anemia Current Visit: Yes Status: Acute Assessment and plan: - Hemoglobin was initially at 7.2; hemoglobin at baseline is approximately 7-8; currently 8.1 after transfusion - 1 unit of PRBCs was ordered in the emergency department - Etiology unknown at this time; no apparent source of bleeding Plan: - F/u FOBT - Repeat CBC in AM to monitor Hgb (5) Hyperglycemia Current Visit: Yes Status: Acute Assessment and plan: - Per chart review, patient does have a known history of diabetes - Presented with an elevated glucose of 437 - Low suspicion for DKA (no acidosis, no urinary ketones, no anion gap) Plan: - Q4 Accu-Cheks have been ordered, and sliding scale insulin has been started - If glucose does not remain adequately controlled, adjustment may be needed to current regimen - Patient restarted on tube feeds, nutrition consult placed (6) DVT ppx - Heparin 5000 SQ <Harmeet Bell - Last Filed: 10/15/18 19:34> Date of Encounter: 10/15/18 Pt admitted earlier today for hyperglycemia, hyperkalemia. His sugar is better during the day. Agree with assessment and plan as above
[2018-10-15] MEDS ORDERED: Nicotine 21 MG PATCH.TD24 TD SCH (09:00)
[2018-10-15] MEDS: Insulin LISPRO 300 UNITS/3 ML VIAL SQ SCH ×4 (09:41→20:56)
[2018-10-15 09:51] LABS: Basophils % 0.3 %; Eosinophils # 0.1 K/mcL (0.0-0.6); Eosinophils % 1.1 %; Hematocrit 24.6 % (37.5-50.1); Hemoglobin 7.5 g/dL (12.9-16.9); Immature Granulocytes % 0.6 % (0-4); Lymphocytes # 1.7 K/mcL (0.6-4.6); Lymphocytes % 18.1 %; Mean Corpuscular HGB Conc 30.5 g/dL (31.6-35.5); Mean Corpuscular Hemoglobin 25.7 pg (28.0-33.3); Mean Corpuscular Volume 84.2 fL (83.0-100.0); Mean Platelet Volume 10.4 fL (9.4-12.4); Monocytes # 0.6 K/mcL (0.0-1.3); Monocytes % 6.7 %; Platelet Count 317 K/mcL (140-400); Red Blood Count 2.92 M/mcL (4.19-5.50); Red Cell Distribution Width 14.6 % (11.5-14.5); Segmented Neutrophils % 73.2 %; White Blood Count 9.5 K/mcL (4.3-11.1)
[2018-10-15 10:21] LABS: Alanine Aminotransferase 57 Units/L (7-52); Albumin 2.6 g/dL (3.5-5.7); Albumin/Globulin Ratio 0.7 (1.1-2.2); Alkaline Phosphatase 68 Units/L (34-104); Aspartate Amino Transferase 74 Units/L (13-39); BUN/Creatinine Ratio 90 (6-26); Bilirubin,Total 0.3 mg/dL (0.3-1.0); Blood Urea Nitrogen 86 mg/dL (8-23); Carbon Dioxide 21 mEq/L (23-29); Chloride 119 mEq/L (98-107); Glucose 330 mg/dL (70-105); Osmolality,Calculated 353 (280-300); Potassium 5.1 mEq/L (3.5-5.1); Sodium 152 mEq/L (136-145); Total Protein 6.6 g/dL (6.4-8.9); eGFR For African Americans > 60 (> 60); eGFR For Non-African Americans > 60 (> 60)
[2018-10-15] MEDS: Budesonide/Formoterol 160/4.5 1 PUFF INH IH SCH ×2 (10:37→22:25)
[2018-10-15] MEDS: *HR* Heparin 5,000 UNIT/ML VIAL SQ SCH ×2 (13:08→17:47)
[2018-10-15 15:21] LABS: Hematocrit 26.8 % (37.5-50.1); Hemoglobin 8.1 g/dL (12.9-16.9)
[2018-10-15] MEDS: Piperacillin/Tazobactam 3.375 GM in 0.9 % Sodium Chloride Mini Bag 100 ML IVPB SCH ×2 (16:33→23:57)
[2018-10-15 21:07] LABS: Hematocrit 23.4 % (37.5-50.1); Hemoglobin 7.2 g/dL (12.9-16.9)
[2018-10-15] MEDS ORDERED: cefTRIAXone 1,000 MG in Water for inj. (sterile) 10 ML IVP SCH (23:00)
[2018-10-16] MEDS: Insulin LISPRO 300 UNITS/3 ML VIAL SQ SCH ×7 (00:13→23:59)
[2018-10-16 04:51] LABS: Basophils % 0.2 %; Eosinophils # 0.2 K/mcL (0.0-0.6); Eosinophils % 1.8 %; Hematocrit 25.5 % (37.5-50.1); Hemoglobin 7.6 g/dL (12.9-16.9); Immature Granulocytes % 0.7 % (0-4); Lymphocytes # 1.5 K/mcL (0.6-4.6); Lymphocytes % 16.4 %; Mean Corpuscular HGB Conc 29.8 g/dL (31.6-35.5); Mean Corpuscular Hemoglobin 25.9 pg (28.0-33.3); Mean Platelet Volume 10.8 fL (9.4-12.4); Monocytes # 0.7 K/mcL (0.0-1.3); Monocytes % 7.3 %; Neutrophils # 6.7 K/mcL (1.6-8.9); Platelet Count 262 K/mcL (140-400); Red Blood Count 2.93 M/mcL (4.19-5.50); Red Cell Distribution Width 15.2 % (11.5-14.5); Segmented Neutrophils % 73.6 %
[2018-10-16 05:06] LABS: Alanine Aminotransferase 52 Units/L (7-52); Albumin 2.6 g/dL (3.5-5.7); Albumin/Globulin Ratio 0.8 (1.1-2.2); Alkaline Phosphatase 58 Units/L (34-104); Aspartate Amino Transferase 82 Units/L (13-39); BUN/Creatinine Ratio 69 (6-26); Bilirubin,Total 0.3 mg/dL (0.3-1.0); Blood Urea Nitrogen 53 mg/dL (8-23); Calcium 8.9 mg/dL (8.6-10.3); Carbon Dioxide 20 mEq/L (23-29); Chloride 124 mEq/L (98-107); Globulin 3.4 g/dL (2.4-3.5); Glucose 133 mg/dL (70-105); Osmolality,Calculated 340 (280-300); Potassium 4.4 mEq/L (3.5-5.1); Sodium 157 mEq/L (136-145); eGFR For African Americans > 60 (> 60); eGFR For Non-African Americans > 60 (> 60)
[2018-10-16] MEDS: *HR* Heparin 5,000 UNIT/ML VIAL SQ SCH ×2 (05:41→17:27)
[2018-10-16] MEDS ORDERED: 0.9 % Sodium Chloride 1,000 ML IVC ONE (06:09)
--- NOTE | 2018-10-16 07:45 | Internal Med Progress Note ---
<Jorge Jacobo F - Last Filed: 10/16/18 16:46> Hospitalist Progress Note - Encounter Date of Encounter: 10/16/18 Time of Encounter: 07:45 - Subjective Interval History: Patient was seen and examined at bedside. Patient was awake and responsive to voice. GCS 11. Eyes 4, verbal 2, motor 5. Mentating the same as yesterday. Patient did spike a fever overnight of the 101 and received Tylenol. Patient's blood pressure also dropped to 90 systolic and was given 1 L normal saline bolus. He was also tachycardic in the 100s to 110s. Patient is typically nonverbal, did not appear to be in any discomfort or pain. Raining clear urine from Lamb catheter. - Exam Vitals: Temp Pulse Resp BP Pulse Ox 100.0 F H 100 22 81/53 100 10/16/18 06:00 10/16/18 06:00 10/16/18 06:00 10/16/18 06:00 10/16/18 06:00 Exam: General: Thin, nonverbal, no apparent distress Head: atraumatic, normocephalic; sunken-appearing eyes, dry mucous membranes Eye: PERRL, EOMI Respiratory: Diminished breath sounds bilaterally, short inspiratory phase Cardiovascular: RRR, +S1, +S2; no murmurs, rubs, gallops Abdomen: Soft, nondistended Extremities: warm, contracted; patient called up into a ball Psychiatric: Unable to assess; Non-conversant, responds to verbal stimuli but does not follow commands Skin: Dry, intact - Assessment and Plan (1) Sepsis Current Visit: Yes Status: Acute Assessment and Plan: - Patient met 2/4 SIRS criteria with fever of 100.9 and tachycardia at 117 bpm, normal lactate - Likely secondary to urinary tract infection; patient has history of chronic Lamb, and Lamb catheter bag was noted to be cloudy on arrival - Given 1 dose of Rocephin in the ED - Blood cultures 2 are ordered and currently pending - Currently afebrile, was afebrile overnight to 101 and given Tylenol - Patient was also hypotensive to systolic 90s overnight and given 1 L normal saline - MRSA nares was positive Plan - Discontinue rocephin, starting vancomycin and zosyn based on previous sensitivities and risk factors - Blood and urine cultures are pending; continue to follow cultures and tailor antibiotic therapy accordingly - Patient started on maintenance fluids with D5 W at 150 mils per hour (2) UTI (urinary tract infection) Current Visit: Yes Status: Acute Assessment and Plan: - Patient presented with a Lamb in place and was exchanged in the ED; Lamb bag was noted to be cloudy - Urinalysis was suggestive of UTI, with leukocyte esterase, TNTC white blood cells, and many bacteria - 1 g of Rocephin was given in the emergency department Plan - Discontinue rocephin, starting vancomycin and zosyn based on previous sensitivities and risk factors - Urine culture is ordered and currently pending; tailor antibiotic therapy accordingly (3) Hyperkalemia Current Visit: Yes Status: Acute Assessment and Plan: - Potassium initially 5.5, down to 5.1 on 10/15 - In the ED, received 10 units of IV insulin, 10 mg of albuterol, and 1 g of calcium gluconate - Etiology is unknown at this time Plan - Assess with EKGs for acute changes - Potassium 4.4, 3.6 today - Repeat BMP to monitor K (4) Uncontrolled diabetes mellitus Current Visit: Yes Status: Acute Assessment and Plan: Assessment and plan: - Per chart review, patient does have a known history of diabetes - Presented with an elevated glucose of 437 - Low suspicion for DKA (no acidosis, no urinary ketones, no anion gap) - A1c of 5.7%, prediabetic Plan: - Q4 Accu-Cheks have been ordered, and sliding scale insulin has been started - If glucose does not remain adequately controlled, adjustment may be needed to current regimen - Patient restarted on tube feeds, nutrition consult placed (5) Anemia Current Visit: No Status: Acute Assessment and Plan: - Hemoglobin was initially at 7.2; hemoglobin at baseline is approximately 7-8; currently 8.1 after transfusion - 1 unit of PRBCs was ordered in the emergency department - Etiology unknown at this time; no apparent source of bleeding; FOBT negative Plan: - Hemoglobin stable at 7.6 today - Repeat CBC in AM to monitor Hgb (6) Severe protein-calorie malnutrition Current Visit: Yes Status: Acute Assessment and Plan: 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 Diet - NPO 2. TF - Start Jevity 1.5 @ 20mls/hr advance by 10mls/hr Q12hrs to a goal rate of 60mls/hr -- Goal: 1.44L total, 2160kcal, 92g pro and 1094 H2O 3.Free water of 265mls Q6H @ 0800, 1200, 1600, 2000 -- 1060mL 4.Monitor for tolerance to TF (7) DVT prophylaxis Current Visit: No Status: Acute Assessment and Plan: - Heparin 5000 SQ - Time Spent with Patient Total time spent is greater than 50% in coordination of care (as documented) at patient's floor/unit and/or counseling patient: less than 15 minutes Plan of Care Discussed with: nurse Internal Medicine: Result - Labs CBC & Chem 7: 10/16/18 03:57 10/16/18 14:48 Labs: Short CBC 10/15/18 10/15/18 10/15/18 Range/Units 09:30 15:06 20:55 WBC 9.5 (4.3-11.1) K/mcL Hgb 7.5 L 8.1 L 7.2 L (12.9-16.9) g/dL Hct 24.6 L 26.8 L 23.4 L (37.5-50.1) % Plt Count 317 (140-400) K/mcL Neutrophils # 7.0 (1.6-8.9) K/mcL 10/16/18 Range/Units 03:57 WBC 9.0 (4.3-11.1) K/mcL Hgb 7.6 L (12.9-16.9) g/dL Hct 25.5 L (37.5-50.1) % Plt Count 262 (140-400) K/mcL Neutrophils # 6.7 (1.6-8.9) K/mcL BMP 10/15/18 10/16/18 09:30 03:57 Sodium 152 H 157 H Potassium 5.1 4.4 Chloride 119 H 124 H Carbon Dioxide 21 L 20 L BUN 86 H 53 H Creatinine 0.96 0.77 Glucose 330 H 133 H Calcium 9.0 8.9 Liver Function 10/15/18 10/16/18 Range/Units 09:30 03:57 Total Bilirubin 0.3 0.3 (0.3-1.0) mg/dL AST 74 H 82 H (13-39) Units/L ALT 57 H 52 (7-52) Units/L Alkaline Phosphatase 68 58 (34-104) Units/L Albumin 2.6 L 2.6 L (3.5-5.7) g/dL Consult Discharge Plan - Plan Referrals: NONE,PCP [Primary Care Provider] - <Harmeet Bell - Last Filed: 10/16/18 17:30> Hospitalist Progress Note - Encounter Date of Encounter: 10/16/18 - Exam Vitals: Temp Pulse Resp BP Pulse Ox 97.9 F 102 18 91/63 100 10/16/18 11:59 10/16/18 12:51 10/16/18 12:39 10/16/18 12:39 10/16/18 12:39 - Assessment and Plan (1) Sepsis Current Visit: Yes Status: Acute Assessment and Plan: present on admission (2) Severe protein-calorie malnutrition Current Visit: Yes Status: Chronic (3) Anemia Current Visit: Yes Status: Suspected (4) Hypotension Current Visit: Yes Status: Acute (5) UTI (urinary tract infection) Current Visit: Yes Status: Acute Assessment and Plan: Present on admission (6) Acute metabolic encephalopathy Current Visit: No Status: Acute (7) Hypernatremia Current Visit: Yes Status: Acute - Time Spent with Patient Total time spent is greater than 50% in coordination of care (as documented) at patient's floor/unit and/or counseling patient: My time was 32min Internal Medicine: Result - Labs CBC & Chem 7: 10/16/18 03:57 10/16/18 14:48 Labs: Short CBC 10/15/18 10/16/18 Range/Units 20:55 03:57 WBC 9.0 (4.3-11.1) K/mcL Hgb 7.2 L 7.6 L (12.9-16.9) g/dL Hct 23.4 L 25.5 L (37.5-50.1) % Plt Count 262 (140-400) K/mcL Neutrophils # 6.7 (1.6-8.9) K/mcL BMP 10/16/18 10/16/18 03:57 14:48 Sodium 157 H 153 H Potassium 4.4 3.6 Chloride 124 H 125 H Carbon Dioxide 20 L 22 L BUN 53 H 39 H Creatinine 0.77 0.75 Glucose 133 H 180 H Calcium 8.9 8.4 L Liver Function 10/16/18 Range/Units 03:57 Total Bilirubin 0.3 (0.3-1.0) mg/dL AST 82 H (13-39) Units/L ALT 52 (7-52) Units/L Alkaline Phosphatase 58 (34-104) Units/L Albumin 2.6 L (3.5-5.7) g/dL - Attending Attestation I examined this patient and my medical decision-making was reviewed with the Resident Physician on 10/16/18. I agree with the documented findings, disposition and treatment plan as described except to the extent set forth below. Mr Proctor is currently admitted for acute hyperglycemia and UTI. He is now hypernatremic. He remains high risk at this time. Mr Proctor is more alert but nonverbal. BP has been low still. Febrile during the night. No diarrhea. WBC improving. Exam: Alert. NC. Mucus membranes dry. Neck supple. Not tachycardic. No wheeze. Abd soft. No edema. No rash. Nonverbal. Plan: Free water IV with monitoring of sodium. Glucose control. If BP drops more may need pressor. <Jorge Jacobo F - Last Filed: 10/16/18 16:46> (2) UTI (urinary tract infection) Qualifiers: Urinary tract infection type: site unspecified Hematuria presence: without hematuria Qualified Code(s): N39.0 - Urinary tract infection, site not specified; N39.0 - Urinary tract infection, site not specified (4) Uncontrolled diabetes mellitus Qualifiers: Diabetes mellitus type: type 2 Glycemic state: with hyperglycemia Qualified Code(s): E11.65 - Type 2 diabetes mellitus with hyperglycemia <Harmeet Bell A - Last Filed: 10/16/18 17:30> (1) Sepsis Qualifiers: Sepsis type: sepsis due to unspecified organism Qualified Code(s): A41.9 - Sepsis, unspecified organism (3) Anemia Qualifiers: Anemia type: other cause Other causes of anemia: chronic disease, other Qualified Code(s): D63.8 - Anemia in other chronic diseases classified elsewhere (4) Hypotension Qualifiers: Hypotension type: other hypotension type Qualified Code(s): I95.89 - Other hypotension (5) UTI (urinary tract infection) Qualifiers: Urinary tract infection type: catheter-associated UTI Indwelling urinary catheter type: indwelling urethral catheter Encounter type: subsequent encounter Qualified Code(s): T83.511D - Infection and inflammatory reaction due to indwelling urethral catheter, subsequent encounter; N39.0 - Urinary tract infection, site not specified
[2018-10-16] MEDS: Budesonide/Formoterol 160/4.5 1 PUFF INH IH SCH ×2 (08:03→21:21)
[2018-10-16] MEDS ORDERED: 0.9 % Sodium Chloride 1,000 ML IVC SCH (08:15)
[2018-10-16] MEDS ORDERED: 0.9 % Sodium Chloride 1,000 ML ONE (08:21)
[2018-10-16] MEDS ORDERED: D5% in 0.45% NACL w KCl 20 MEQ/1,000 ML MLS IVC PRN (08:24)
[2018-10-16] MEDS: Piperacillin/Tazobactam 3.375 GM in 0.9 % Sodium Chloride Mini Bag 100 ML IVPB SCH ×2 (08:46→17:13)
[2018-10-16] MEDS ORDERED: D5% in Water 1,000 ML IVC SCH (09:00)
[2018-10-16] MEDS: D5% in Water 1,000 ML IVC SCH ×2 (11:05→17:23)
--- NOTE | 2018-10-16 15:00 | Electrocardiograph Report ---
[address] [address] Test Date: 2018-10-14 Pat Name: Iban Proctor Department: [id number] Room: [facility] Gender: M Erp Pm: : 1955 Requested By: Ginna Quick Order Number: [id number] Reading MD: Gurwinder Angel Measurements Intervals [place] Rate: 105 P: 78 CA: 172 QRS: 73 QRSD: 92 T: 84 QT: 334 QTc: 442 Interpretive Statements Sinus tachycardia Abnormal R-wave progression, early transition Electronically Signed On 10-16-2018 14:58:50 EDT by Gurwinder Angel
[2018-10-16 15:20] LABS: BUN/Creatinine Ratio 52 (6-26); Blood Urea Nitrogen 39 mg/dL (8-23); Calcium 8.4 mg/dL (8.6-10.3); Carbon Dioxide 22 mEq/L (23-29); Chloride 125 mEq/L (98-107); Glucose 180 mg/dL (70-105); Osmolality,Calculated 330 (280-300); Potassium 3.6 mEq/L (3.5-5.1); Sodium 153 mEq/L (136-145); eGFR For African Americans > 60 (> 60); eGFR For Non-African Americans > 60 (> 60)
[2018-10-16] MEDS: Meropenem 500 MG in Water for inj. (sterile) 10 ML IVP SCH (23:52)
[2018-10-17] MEDS: D5% in Water 1,000 ML IVC SCH ×3 (00:22→14:30)
[2018-10-17] MEDS: Insulin LISPRO 300 UNITS/3 ML VIAL SQ SCH ×3 (03:51→14:30)
[2018-10-17 04:56] LABS: Basophils % 0.1 %; Eosinophils # 0.1 K/mcL (0.0-0.6); Eosinophils % 1.6 %; Hematocrit 21.8 % (37.5-50.1); Hemoglobin 6.7 g/dL (12.9-16.9); Immature Granulocytes % 0.9 % (0-4); Lymphocytes # 1.4 K/mcL (0.6-4.6); Lymphocytes % 17.8 %; Mean Corpuscular HGB Conc 30.7 g/dL (31.6-35.5); Mean Corpuscular Volume 84.5 fL (83.0-100.0); Mean Platelet Volume 9.7 fL (9.4-12.4); Monocytes # 0.5 K/mcL (0.0-1.3); Monocytes % 5.9 %; Neutrophils # 5.8 K/mcL (1.6-8.9); Platelet Count 230 K/mcL (140-400); Red Blood Count 2.58 M/mcL (4.19-5.50); Red Cell Distribution Width 15.1 % (11.5-14.5); Segmented Neutrophils % 73.7 %; White Blood Count 7.9 K/mcL (4.3-11.1)
[2018-10-17] MEDS: *HR* Heparin 5,000 UNIT/ML VIAL SQ SCH (05:09)
[2018-10-17 05:15] LABS: Alanine Aminotransferase 48 Units/L (7-52); Albumin 2.4 g/dL (3.5-5.7); Albumin/Globulin Ratio 0.7 (1.1-2.2); Alkaline Phosphatase 52 Units/L (34-104); Aspartate Amino Transferase 59 Units/L (13-39); BUN/Creatinine Ratio 42 (6-26); Bilirubin,Total 0.3 mg/dL (0.3-1.0); Blood Urea Nitrogen 30 mg/dL (8-23); Calcium 8.6 mg/dL (8.6-10.3); Carbon Dioxide 22 mEq/L (23-29); Chloride 116 mEq/L (98-107); Globulin 3.4 g/dL (2.4-3.5); Glucose 165 mg/dL (70-105); Osmolality,Calculated 314 (280-300); Sodium 147 mEq/L (136-145); Total Protein 5.8 g/dL (6.4-8.9); eGFR For African Americans > 60 (> 60); eGFR For Non-African Americans > 60 (> 60)
[2018-10-17] MEDS: Meropenem 500 MG in Water for inj. (sterile) 10 ML IVP SCH (07:58)
--- NOTE | 2018-10-17 08:42 | Internal Med Progress Note ---
<Harmeet Bell - Last Filed: 10/17/18 16:13> Hospitalist Progress Note - Encounter Date of Encounter: 10/17/18 - Exam Vitals: Temp Pulse Resp BP Pulse Ox 98.1 F 110 38 87/56 92 10/17/18 10:42 10/17/18 15:05 10/17/18 12:26 10/17/18 15:05 10/17/18 12:19 - Time Spent with Patient Total time spent is greater than 50% in coordination of care (as documented) at patient's floor/unit and/or counseling patient: Internal Medicine: Result - Labs CBC & Chem 7: 10/17/18 04:44 10/17/18 04:44 Labs: Short CBC 10/17/18 Range/Units 04:44 WBC 7.9 (4.3-11.1) K/mcL Hgb 6.7 L (12.9-16.9) g/dL Hct 21.8 L (37.5-50.1) % Plt Count 230 (140-400) K/mcL Neutrophils # 5.8 (1.6-8.9) K/mcL BMP 10/16/18 10/17/18 19:58 04:44 Sodium 150 H 147 H Potassium 4.0 Chloride 116 H Carbon Dioxide 22 L BUN 30 H Creatinine 0.72 Glucose 165 H Calcium 8.6 Liver Function 10/17/18 Range/Units 04:44 Total Bilirubin 0.3 (0.3-1.0) mg/dL AST 59 H (13-39) Units/L ALT 48 (7-52) Units/L Alkaline Phosphatase 52 (34-104) Units/L Albumin 2.4 L (3.5-5.7) g/dL - Impressions Impressions Chest X-Ray 10/17/18 05:00 IMPRESSION: Technically suboptimal exam without evidence of focal airspace consolidation. D/ / Go Villagomez / Go Villagomez Interpreting Provider: Go Villagomez Consult Discharge Plan - Plan Referrals: NONE,PCP [Primary Care Provider] - - Attending Attestation I examined this patient and my medical decision-making was reviewed with the Resident Physician on 10/17/18. I agree with the documented findings, disposition and treatment plan as described except to the extent set forth below. Mr Proctor is currently admitted for sepsis related to UTI. He remains moderate to high risk due to potential for worsening clinical and respiratory status. Mr Proctor is more dyspneic today. Still febrile. More hypotensive. Anemic now. Exam: Alert. Moderate resp distress. NC. EOMI. Mucus membranes dry. Heart tachy. Scant wheeze. Abd soft. Plan: Palliative care consulted. Family made DNR CC. Patient to be transferred to . Comfort measures now. Abx stopped. <JacoboJorge F - Last Filed: 10/17/18 18:08> Hospitalist Progress Note - Encounter Date of Encounter: 10/17/18 Time of Encounter: 08:42 - Subjective Interval History: Patient was seen and examined at bedside. Overnight at around 4 AM on 10/17 patient had a fever of 101.9. And was given Tylenol. Patient has been afebrile since. Patient is at baseline nonverbal. Patient does show increased work of breathing, but does not appear to be in significant pain. Patient will make eye contact and respond to commands. Draining clear urine from Lamb catheter. In the morning patient continued to be hypotensive with a mean arterial pressure in the 50s to 60s. He also had a low hemoglobin of 6.7 and was transfused with 2 units of PRBCs. - Exam Vitals: Temp Pulse Resp BP Pulse Ox 98.3 F 98 25 83/63 94 10/17/18 07:38 10/17/18 08:00 10/17/18 08:00 10/17/18 08:00 10/17/18 08:00 Exam: General: Thin, nonverbal, no apparent distress Head: atraumatic, normocephalic; sunken-appearing eyes Eye: PERRL, EOMI ENT: Moist mucous membranes, no erythema or drainage Respiratory: Diminished breath sounds bilaterally, short inspiratory phase, work of breathing on room air Cardiovascular: RRR, +S1, +S2; no murmurs, rubs, gallops Abdomen: Soft, nondistended, nontender, active bowel sounds. No rebound/guarding/rigidity. Extremities: warm, contracted; patient called up into a ball Neuro: Grossly nonfocal, however patient is nonverbal at baseline Psychiatric: Unable to assess; Non-conversant, responds to verbal stimuli but does not follow commands Skin: Dry, intact, chronic ulcers on bilateral buttocks - Assessment and Plan (1) Sepsis Current Visit: Yes Status: Acute Assessment and Plan: - Patient initially met 2/4 SIRS criteria with fever of 100.9 and tachycardia at 117 bpm, normal lactate - Likely secondary to urinary tract infection; patient has history of chronic Lamb, and Lamb catheter bag was noted to be cloudy on arrival - Given 1 dose of Rocephin in the ED - Blood cultures 2 are ordered and currently pending - Currently afebrile, was afebrile overnight to 101 and given Tylenol - Patient was also hypotensive to systolic 90s overnight with a hemoglobin of 6.7, transfused 2 units of PRBCs today - MRSA nares was positive Plan - Discontinue rocephin, started on vancomycin and Zosyn. On 10/16, patient was started on meropenem for better coverage - Per goals of care discussion, all antibiotics were discontinued today for comfort care - Blood and urine cultures are pending; will not pursue further treatment. -Maintenance fluids were discontinued -Patient was given 40 mg IV Lasix due to concern of fluid overload after mu ltiple transfusions and intravenous fluids (2) UTI (urinary tract infection) Current Visit: Yes Status: Acute Assessment and Plan: - Patient presented with a Lamb in place and was exchanged in the ED; Lamb bag was noted to be cloudy - Urinalysis was suggestive of UTI, with leukocyte esterase, TNTC white blood cells, and many bacteria - 1 g of Rocephin was given in the emergency department Plan - Antibiotics discontinued - Lamb exchanged today - Urine culture is ordered and currently pending (3) Hyperkalemia Current Visit: Yes Status: Acute Assessment and Plan: - Potassium initially 5.5, down to 5.1 on 10/15 - In the ED, received 10 units of IV insulin, 10 mg of albuterol, and 1 g of calcium gluconate - Etiology is unknown at this time Plan - No further interventions at this time - Potassium was 4.0 today (4) Uncontrolled diabetes mellitus Current Visit: Yes Status: Acute Assessment and Plan: Assessment and plan: - Per chart review, patient does have a known history of diabetes - Presented with an elevated glucose of 437 - Low suspicion for DKA (no acidosis, no urinary ketones, no anion gap) - A1c of 5.7%, prediabetic Plan: - Q4 Accu-Cheks have been ordered, and sliding scale insulin has been started - If glucose does not remain adequately controlled, adjustment may be needed to current regimen - Patient restarted on tube feeds, nutrition consult placed (5) Anemia Current Visit: No Status: Acute Assessment and Plan: - Hemoglobin was initially at 7.2; hemoglobin at baseline is approximately 7-8; currently 8.1 after transfusion - 1 unit of PRBCs was ordered in the emergency department - Etiology unknown at this time; no apparent source of bleeding; FOBT negative - Patient has history of esophagitis, GI bleed considered as cause for anemia, however no further endoscopy or other intervention are indicated per comfort care Plan: - Hemoglobin of 6.7 this morning, given 2 units red blood cells - No further labs indicated at this time (6) Severe protein-calorie malnutrition Current Visit: Yes Status: Chronic Assessment and Plan: Severe pro calorie malnutrition with chronic encephalopathy, anoxic brain injury - Nutrition consult -Recommended nothing by mouth, on tube feeds, adjusted free water, continue to monitor for tolerance to TF (7) DVT prophylaxis Current Visit: No Status: Acute Assessment and Plan: - Heparin 5000 SQ (8) Ulcers of both lower extremities Current Visit: No Status: Acute Assessment and Plan: Wound care consult for management of ulcers - Currently stable no drainage of pus or blood - Summary of Assessment and Plan Summary of Assessment and Plan: Patient is a 62-year-old male who has been admitted for sepsis secondary to UTI. He is DNR CCA. Today a goals of care discussion took place with patient's son who has decided to go the route of comfort care. States that the patient has been in decline over the last month and he was actually planning to transition him to comfort care. He should have an event and may causing anoxic brain injury and his mental status has been declining since. Discussion with family, palliative care was conducted. This discussion included all of the potential options for more aggressive treatment versus comfort care. Son was agreeable to continue another unit for blood transfusion today but otherwise desires comfort care measures only. CODE STATUS transition to DNR CC. Antibiotics, fluids will be discontinued. He will be transferred to a palliative bed. Pain medications including morphine and lorazepam for anxiety prescribed when necessary as needed. Infectious disease consults, gastroenterology consults recommendations were appreciated. However at this time there will be no further intervention. - Time Spent with Patient Total time spent is greater than 50% in coordination of care (as documented) at patient's floor/unit and/or counseling patient: 25 - 35 minutes Plan of Care Discussed with: patient Internal Medicine: Result - Labs CBC & Chem 7: 10/17/18 04:44 10/17/18 04:44 Labs: Short CBC 10/17/18 Range/Units 04:44 WBC 7.9 (4.3-11.1) K/mcL Hgb 6.7 L (12.9-16.9) g/dL Hct 21.8 L (37.5-50.1) % Plt Count 230 (140-400) K/mcL Neutrophils # 5.8 (1.6-8.9) K/mcL BMP 10/16/18 10/16/18 10/17/18 14:48 19:58 04:44 Sodium 153 H 150 H 147 H Potassium 3.6 4.0 Chloride 125 H 116 H Carbon Dioxide 22 L 22 L BUN 39 H 30 H Creatinine 0.75 0.72 Glucose 180 H 165 H Calcium 8.4 L 8.6 Liver Function 10/17/18 Range/Units 04:44 Total Bilirubin 0.3 (0.3-1.0) mg/dL AST 59 H (13-39) Units/L ALT 48 (7-52) Units/L Alkaline Phosphatase 52 (34-104) Units/L Albumin 2.4 L (3.5-5.7) g/dL - Impressions Impressions Chest X-Ray 10/17/18 05:00 IMPRESSION: Technically suboptimal exam without evidence of focal airspace consolidation. D/ / Go Villagomez / Go Villagomez Interpreting Provider: Go Villagomez <Jorge Jacobo F - Last Filed: 10/17/18 18:08> (1) Sepsis Qualifiers: Sepsis type: sepsis due to unspecified organism Qualified Code(s): A41.9 - Sepsis, unspecified organism (2) UTI (urinary tract infection) Qualifiers: Urinary tract infection type: catheter-associated UTI Indwelling urinary catheter type: indwelling urethral catheter Encounter type: subsequent encounter Qualified Code(s): T83.511D - Infection and inflammatory reaction due to indwelling urethral catheter, subsequent encounter; N39.0 - Urinary tract infection, site not specified (4) Uncontrolled diabetes mellitus Qualifiers: Diabetes mellitus type: type 2 Glycemic state: with hyperglycemia Qualified Code(s): E11.65 - Type 2 diabetes mellitus with hyperglycemia (5) Anemia Qualifiers:
[2018-10-17] MEDS ORDERED: 0.9 % Sodium Chloride 250 ML ONE ×2 (09:46→14:35)
[2018-10-17] MEDS ORDERED: Furosemide 40 MG/4 ML VIAL IVP ONE (10:09)
--- NOTE | 2018-10-17 10:20 | Infectious Disease Consult ---
Infectious Disease-Consult - Encounter Date/Time Date of Encounter: 10/17/18 - Data of Consult Reason for consult: UTI and sepsis with history of MDROs Consult date: 10/17/18 Requesting Physician: Harmeet Bell DO Primary Care Provider: PCP NONE - HPI HPI: Mr Proctor is a 62M who was admitted on 10/15/18 for sepsis and UTI. The infectious disease team was consulted on 10/17/18 for sepsis with UTI and history of multiple MDROs. The patient has a PMH of anoxic brain injury (nonverbal at baseline), arthritis, diabetes, GERD, hepatitis, HLD, HTN, osteoporosis, and seizure disorder. He presented to [facility] from his ECF for abnormal labs. These labs demonstrated hyperglycemia, elevated potassium, elevated BUN, and elevated creatinine. Most of the HPI is obtained from records as the patient is nonverbal at baseline. Vital signs in the ED are as follows: Temp 99.1 HR 104 RR 19 BP 91/61 SpO2 100% on room air Lab work demonstrated no leukocytosis with WBC of 10.3, anemia with Hgb 7.2, hyperglycemia of 437, and beta-hydroxybutyrate of 0.32. Urinalysis was positive for moderate blood, large leukocyte esterase, and many bacteria. CXR from 10/14 revealed no focal airspace consolidation, but identified as a technically suboptimal exam. Pt is known to have a chronic wilkins. While in the ED he was started on IV Rocephin for UTI. Since admission the urine culture from 10/14 has preliminary growth of gram positive cocci. Anemia has persistent and required transfusion of 1u pRBCs. The patient remained intermittently febrile with Tmax of 102.3 on 10/16/18. Also continued to have tachycardia, and tachypnea. Continues to have no leukocytosis on daily labs. MRSA nasal swab was positive. Procalcitonin from 10/16 was elevated at 0.88. Stool hemoccult was negative that same day. Repeat CXR from this morning (10/17) came back as technically suboptimal without evidence of focal airspace consolidation. As pt was continuing to decline clinically, abx were broadened since patient has history of MRSA UTI and bacteremia, Klebsiella oxytoca ESBL in the urine, and Stahylococcus auricularis bacteremia. The infection disease team was consulted for assistance with urosepsis and history of muliple MDROs. Pt seen and examined at bedside. Remains nonverbal and curled up in bed. - ROS Review of Systems: 10 point review of systems unable to be obtained due to patient's mental status - Results CBC & Chem 7: 10/17/18 04:44 10/17/18 04:44 - Line Documentation Line Documentation: Wilkins Catheter - Exam Vitals: Temp Pulse Resp BP Pulse Ox 98.3 F 98 25 83/63 94 10/17/18 07:38 10/17/18 08:00 10/17/18 08:00 10/17/18 08:00 10/17/18 08:00 Exam: General: cachectic male curled up in bed Head: NCAT Eyes: PERRL ENT: mucous membranes clinically hydrated Lungs: grossly diminished breath sounds. Minimal wheezing auscultated on the left upper lobe Heart: RRR +s1 +s2. no murmurs, clicks, or rubs appreciated GI: abdomen soft, difficult to completely assess due to patient's curled positioning Extremities: warm, contracted Neuro: unable to assess due to mental status Skin: dry, intact Acetaminophen [Tylenol 650mg SUPP] 650 mg RC Q4H PRN MDD 3GM 10/15/18 [History] Ciprofloxacin [Cipro] 500 mg GTUBE Q12H 10/15/18 [History] Dextrose [Glucose Gel] 15 gm GTUBE Q4H PRN 10/15/18 [History] Ferrous Sulfate 325 mg GTUBE BIDWM 10/15/18 [History] Folic Acid 1 mg GTUBE DAILY 10/15/18 [History] Glucagon,Human Recombinant [Glucagon Emergency Kit] 1 mg IM PRN PRN 10/15/18 [History] Heparin Sodium,Porcine [Heparin Sodium] 5,000 units SQ BID 10/15/18 [History] LORazepam [Ativan] 1 mg GTUBE Q12H PRN 10/15/18 [History] Lactobacillus Combination No.8 [Adult Probiotic] 1 cap GTUBE DAILY 10/15/18 [History] LevETIRAcetam [Keppra] 500 mg GTUBE BID 10/15/18 [History] Magnesium Oxide [Magnesium] 800 mg GTUBE BID 10/15/18 [History] Melatonin [Melatin] 6 mg PO HS 10/15/18 [History] Metformin HCl 500 mg GTUBE BID 10/15/18 [History] Multivitamin [Daily Multiple Vitamin] 1 tab GTUBE DAILY 10/15/18 [History] Nicotine Patch [Nicoderm] 14 mg TD DAILY 10/15/18 [History] Pantoprazole Sodium [Protonix] 40 mg GTUBE DAILY 10/15/18 [History] Sodium Chloride [Sodium Chloride Tab] 1 gm GTUBE TID 10/15/18 [History] Sucralfate [Carafate] 1 gm GTUBE TID 10/15/18 [History] Thiamine HCl [Vitamin B-1] 100 mg GTUBE DAILY 10/15/18 [History] Trazodone HCl 50 mg PO HS PRN 10/15/18 [History] Wheat Dextrin [Benefiber] 8.4 gm GTUBE TID 10/15/18 [History] Allergy/AdvReac Type Severity Reaction Status Date / Time No Known Allergies Allergy Verified 10/15/18 12:33 - Assessment and Plan (1) Sepsis Current Visit: Yes Status: Acute Initially met 2/4 SIRS criteria with temp of 100.9 and tachycardia of 117 Etiology - UTI vs unknown Has chronic wilkins Urinalysis positive for leukocyte esterase and bacteria Urine culture from 10/14 preliminary results of Gram positive cocci Blood cultures x2 from 10/15 with NGTD MRSA swab positive Procalcitonin elevated at 0.88 Qualifiers: Sepsis type: sepsis due to unspecified organism Sepsis acute organ dysfunction status: unspecified Qualified Code(s): A41.9 - Sepsis, unspecified organism SNOMED Code(s): 63060228 (2) UTI (urinary tract infection) Current Visit: Yes Status: Acute Has chronic indwelling Wilkins UA suggestive of UTI with results mentioned above Pt initially started on Ceftriaxone, however this was transitioned to IV Vancomycin and Zosyn, then transitioned again on 10/16 to Meropenem. Urine culture from 10/14 currently growing Gram positive cocci with final report pending Has hx of urine cultures positive for MRSA, and Klebsiella oxytoca ESBL Qualifiers: Urinary tract infection type: catheter-associated UTI Indwelling urinary catheter type: indwelling urethral catheter Encounter type: subsequent encounter Qualified Code(s): T83.511D - Infection and inflammatory reaction due to indwelling urethral catheter, subsequent encounter; N39.0 - Urinary tract infection, site not specified SNOMED Code(s): 03370092 (3) Anemia Current Visit: Yes Status: Suspected Presented with Hgb of 7.2 Received 1u pRBCs on 10/15/18 Stool hemoccult negative Etiology unknown at this time Qualifiers: Anemia type: other cause Other causes of anemia: chronic disease, other Qualified Code(s): D63.8 - Anemia in other chronic diseases classified elsewhere SNOMED Code(s): 767635441 (4) Severe protein-calorie malnutrition Current Visit: Yes Status: Chronic SNOMED Code(s): 708168442, 574878551, 163781747 (5) Diabetes mellitus, undetermined Current Visit: Yes Status: Chronic Qualifiers: Diabetes mellitus type: type 2 Diabetes mellitus complication status: with hyperglycemia Qualified Code(s): E11.65 - Type 2 diabetes mellitus with hyperglycemia SNOMED Code(s): 27641774 - Recommendations Recommendations: After reviewing patient's chart and examining the patient, the plan was to speak with microbiology department about prelimiary gram positive cocci in urine culture from 10/14 prior to antibiotic regimen recommendations. However the palliative team was consulted for goals of care discussion. This occurred with the primary team as well. Ultimately the patient's son Mauro elected for comfort care measures including discontinuation of IV antibiotics. The infectious disease team will sign off at this time. Thank you for the consult. Past Med Surg Social Fam HX - Past Medical History Medical history: arthritis, COPD, diabetes, GERD, hepatitis, hyperlipidemia, hypertension, osteoporosis, seizures, syncope, other Additional medical history: ever abuse/ drug abuse, encephalopathy. Psychiatric history: other - Past Surgical History Surgical History: cholecystectomy Additional surgical history: cyst on abdomen removed - Social History Smoking Status: Former smoker Smokeless Tobacco Status: No Alcohol use: heavy Drug use: cocaine, marijuana - Family History Mother Adopted: (poor historian) Living Status: Hx Family Cardiac Disorders: No Hx Family Respiratory Disorders: No Hx Family Cancer: No Hx Family GI Disorders: No Hx Family Endocrine Disorder: No Consult Discharge Plan - Plan Referrals: NONE,PCP [Primary Care Provider] -
--- NOTE | 2018-10-17 11:16 | Gastroenterology Consult Note ---
Date of Encounter: 10/17/18 Time of Encounter: 09:40 - Time Spent With Patient Total time spent is greater than 50% in coordination of care (as documented) at patient's floor/unit and/or counseling patient: GI History of Present Illness - Data of Consult Patient: known to practice within the last 3 years Consult date: 10/17/18 Requesting Physician: Harmeet Bell DO - Consult Narrative Reason for consult: GI Bleed History of present illness: Mr. Proctor is a 62 year old male with PMHx of arthritis, DM, GERD, anoxic brain injury (nonverbal at baseline), seizure disorder, hepatitis C, polysubstance abuse presented to the ED from [facility] with abnormal labs (elevated glucose, elevated potassium, elevated BUN, elevated creatinine). Patient found to be septic with fever, tachycardia likely due to UTI, and was started on Vanco and Zosyn, which was changed to Vanco and Meropenem overnight. Patient was anemic on admission with Hgb 7.2, but dropped to 6.7 this AM. No melena or hematochezia. We were consulted to evaluate for possible GI bleed. Procedures: EGD 07/29/2018 Dr. Lucas: Severe erosive esophagitis, medium hiatal hernia. EGD 06/06/2015 Dr. Lucas: Normal EGD 08/27/2013 Dr. Lopez: Esophageal ulcer 3 cm x 2 cm, LA grade A reflux esophagitis, small hiatal hernia, erosive gastritis. NSAIDs: None Anticoagulation: None A/P 1. Anemia: Patient was anemic on admission with Hgb 7.2, but dropped to 6.7 this AM. Two units PRBC ordered. Continue to monitor CBC and transfuse as needed. Start BID PPI. Plan for EGD on Saturday once more stable. NPO at midnight Saturday night. 2. Sepsis: Management per primary team and Infectious Disease. Past Med Surg Social Fam HX - Past Medical History Medical history: arthritis, COPD, diabetes, GERD, hepatitis, hyperlipidemia, hypertension, osteoporosis, seizures, syncope, other Additional medical history: ever abuse/ drug abuse, encephalopathy. Psychiatric history: other - Past Surgical History Surgical History: cholecystectomy Additional surgical history: cyst on abdomen removed - Social History Smoking Status: Former smoker Smokeless Tobacco Status: No Alcohol use: heavy Drug use: cocaine, marijuana - Family History Mother Adopted: (poor historian) Living Status: Hx Family Cardiac Disorders: No Hx Family Respiratory Disorders: No Hx Family Cancer: No Hx Family GI Disorders: No Hx Family Endocrine Disorder: No ROS unobtainable: due to mental status - Constitutional Vitals: Temp Pulse Resp BP Pulse Ox 98.1 F 108 30 78/51 96 10/17/18 10:42 10/17/18 10:42 10/17/18 10:42 10/17/18 10:42 10/17/18 10:27 Exam: Thin, nonverbal, no apparent distress, contracted - Head Head exam: Present: atraumatic, normocephalic - Eye Eye exam: Present: normal appearance, sclera anicteric - ENT ENT exam: Present: mucous membranes dry - Neck Neck exam general surgery: Present: normal inspection, trachea midline - Respiratory Respiratory exam: Present: decreased breath sounds, CTAB. Absent: rales, rhonchi - Cardiovascular Cardiovascular exam: Present: RRR, +S1, +S2 - GI/Abdominal GI/Abdominal exam: Present: soft, no peritoneal signs. Absent: distended, firm, guarding Additional comments: Feeding tube present - Rectal Rectal exam: Present: deferred - Extremities Exam Extremities exam: Present: warm - Psychiatric Psychiatric exam: Present: normal affect, normal mood - Skin Skin exam: Present: dry, intact, normal color, warm Results - Labs CBC & Chem 7: 10/17/18 04:44 10/17/18 04:44 Labs: Last Result 10/17/18 04:44 Calcium 8.6 Entire Visit 10/17/18 10/17/18 04:44 04:44 Hgb 6.7 L Hct 21.8 L Total Bilirubin 0.3 AST 59 H ALT 48 - Impressions Impressions Chest X-Ray 10/17/18 05:00 IMPRESSION: Technically suboptimal exam without evidence of focal airspace consolidation. D/ / Go Villagomez / Go Villagomez Interpreting Provider: Go Villagomez Consult Discharge Plan - Plan Referrals: NONE,PCP [Primary Care Provider] -
[2018-10-17] MEDS: Budesonide/Formoterol 160/4.5 1 PUFF INH IH SCH ×2 (11:55→22:50)
--- NOTE | 2018-10-17 13:10 | Palliative - Consult Note ---
Date of Encounter: 10/17/18 Time of Encounter: 12:30 - Assessment and Plan (1) Generalized pain Current Visit: Yes Status: Acute Assessment and plan: Will have Morphine Elixir available per PEG if needed for pain or shortness of breath. (2) Anxiety Current Visit: Yes Status: Acute Assessment and plan: Will order Lorazepam available for PRN use if needed for anxiety. Monitor and titrate as needed. (3) Goals of care, counseling/discussion Current Visit: No Status: Acute Assessment and plan: Patient's son, Mauro, arrived to hospital. He is patient's only son. Patient's states that patient was not to his mother. Mauro resides in [place] with his and 2 children. States that pt has been in decline over the last month and he was actually planning to go to ECF today and transition him to comfort care. He states that his primary concern following his father's medical event in July causing some brain damage, is that he would have period of lucidness where he could make things right spiritually. Son states that this did happen, and he and his father have had good conversations. He was updated on clinical condition per Dr. Garcia, and Dr. Armenta. Son agreeable to continue with other unit for blood transfusion today, but otherwise desires comfort care measures only. Code status transitioned to DNRCC and state form completed and signed by Mauro. Copies provided to him and placed on medical record. Patient can transition to palliative bed. Antibiotics and fluids will be discontinued. Palliative will reevaluate on Saturday - if he is stable, will speak with social service regarding if he can go to ECF with hospice care. Total time spent 55 min. 40 min spent with patient and son in coordination of care and counseling, transitioning to DNR, and discussing with primary nurse/medical team. (4) Palliative care encounter Current Visit: No Status: Acute (5) Hypotension Current Visit: Yes Status: Acute Qualifiers: Hypotension type: other hypotension type Qualified Code(s): I95.89 - Other hypotension (6) Sepsis Current Visit: Yes Status: Acute Qualifiers: Qualified Code(s): A41.9 - Sepsis, unspecified organism; R65.20 - Severe sepsis without septic shock Palliative-CN HPI - Data of Consult Requesting Physician: Harmeet Bell DO Primary Care Provider: PCP NONE - Consult Narrative History of present illness: Mr. Proctor is a 62 year old male known to the palliative care team from a previous visit, who was brought to hospital from [facility] where he was found to have abnormal labs, including elevated glucose, potassium, BUN/Cr and appeared dehydrated. Urinalysis was positive and he was hypotensive. He was transferred to ICU for treatment of urosepsis. Was also found to be anemic, and does have 2 units blood ordered for today. GI consult was ordered as well. This patient has a history of anoxic brain injury from event in July, arthritis, GERD, HLD, seizure disorder, HTN, hepatitis. After his event in July that resulted in brain injury,, he was transferred to [facility]. PEG tube was placed during that subacute visit. He was transitioned to [facility] approx 2 weeks ago. Upon my visit, patient is resting quietly with eyes open. He is tachypneic and although oxygenating well, appears in mild respiratory distress. He is hypotensive, currently receiving first unit of blood. Can tell me his first and last name, does not answer other questions for me. Speech is mumbled and difficult to understand. Upper and lower extremities are contracted. Has Allevyn present on coccyx and right hip. CC: Harmeet Bell, DO - Time Spent with Patient Time: Total time spent is greater than 50% in coordination of care (as documented) at patient's floor/unit and/or counseling patient: Past Med Surg Social Fam HX - Past Medical History Medical history: arthritis, COPD, diabetes, GERD, hepatitis, hyperlipidemia, hypertension, osteoporosis, seizures, syncope, other Additional medical history: ever abuse/ drug abuse, encephalopathy. Psychiatric history: other - Past Surgical History Surgical History: cholecystectomy Additional surgical history: cyst on abdomen removed - Social History Smoking Status: Former smoker Smokeless Tobacco Status: No Alcohol use: heavy Drug use: cocaine, marijuana - Family History Mother Adopted: (poor historian) Living Status: Hx Family Cardiac Disorders: No Hx Family Respiratory Disorders: No Hx Family Cancer: No Hx Family GI Disorders: No Hx Family Endocrine Disorder: No Medications and Allergies Acetaminophen [Tylenol 650mg SUPP] 650 mg RC Q4H PRN MDD 3GM 10/15/18 [History] Ciprofloxacin [Cipro] 500 mg GTUBE Q12H 10/15/18 [History] Dextrose [Glucose Gel] 15 gm GTUBE Q4H PRN 10/15/18 [History] Ferrous Sulfate 325 mg GTUBE BIDWM 10/15/18 [History] Folic Acid 1 mg GTUBE DAILY 10/15/18 [History] Glucagon,Human Recombinant [Glucagon Emergency Kit] 1 mg IM PRN PRN 10/15/18 [History] Heparin Sodium,Porcine [Heparin Sodium] 5,000 units SQ BID 10/15/18 [History] LORazepam [Ativan] 1 mg GTUBE Q12H PRN 10/15/18 [History] Lactobacillus Combination No.8 [Adult Probiotic] 1 cap GTUBE DAILY 10/15/18 [History] LevETIRAcetam [Keppra] 500 mg GTUBE BID 10/15/18 [History] Magnesium Oxide [Magnesium] 800 mg GTUBE BID 10/15/18 [History] Melatonin [Melatin] 6 mg PO HS 10/15/18 [History] Metformin HCl 500 mg GTUBE BID 10/15/18 [History] Multivitamin [Daily Multiple Vitamin] 1 tab GTUBE DAILY 10/15/18 [History] Nicotine Patch [Nicoderm] 14 mg TD DAILY 10/15/18 [History] Pantoprazole Sodium [Protonix] 40 mg GTUBE DAILY 10/15/18 [History] Sodium Chloride [Sodium Chloride Tab] 1 gm GTUBE TID 10/15/18 [History] Sucralfate [Carafate] 1 gm GTUBE TID 10/15/18 [History] Thiamine HCl [Vitamin B-1] 100 mg GTUBE DAILY 10/15/18 [History] Trazodone HCl 50 mg PO HS PRN 10/15/18 [History] Wheat Dextrin [Benefiber] 8.4 gm GTUBE TID 10/15/18 [History] Allergy/AdvReac Type Severity Reaction Status Date / Time No Known Allergies Allergy Verified 10/15/18 12:33 ROS unobtainable: due to mental status Palliative Care-Exam - Constitutional Vitals: Temp Pulse Resp BP Pulse Ox 98.1 F 96 38 77/49 92 10/17/18 10:42 10/17/18 12:26 10/17/18 12:26 10/17/18 12:26 10/17/18 12:19 General appearance: Present: disheveled, thin - Head Head Exam: Present: normal inspection, normocephalic - Neck Neck exam: Present: normal inspection - Respiratory Respiratory exam: Present: decreased breath sounds, respiratory distress, tachypnea - Cardiovascular Cardiovascular exam: Present: +S1, +S2, tachycardia - GI/Abdominal Exam GI/Abdominal exam: Present: soft additional comments: PEG intact and clamped - Catheter Type: Urethral (Lamb) Additional comments: Lamb with clear yellow urine - Extremities Exam Additional comments: Contractures of lower and upper extremities - Neurological Exam Neurological exam: Present: alert Additional comments: Patient can tell me his first and last name, states he has 3 children. Other s peech mumbles and difficult to understand. Does not follow commands for me. - Skin Skin exam: Present: dry, normal color, warm Additional comments: Allevyn dressings intact to coccyx. Internal Medicine - CN: Reslt - Labs CBC & Chem 7: 10/17/18 04:44 10/17/18 04:44 Labs: Short CBC 10/17/18 Range/Units 04:44 WBC 7.9 (4.3-11.1) K/mcL Hgb 6.7 L (12.9-16.9) g/dL Hct 21.8 L (37.5-50.1) % Plt Count 230 (140-400) K/mcL Neutrophils # 5.8 (1.6-8.9) K/mcL BMP 10/16/18 10/16/18 10/17/18 14:48 19:58 04:44 Sodium 153 H 150 H 147 H Potassium 3.6 4.0 Chloride 125 H 116 H Carbon Dioxide 22 L 22 L BUN 39 H 30 H Creatinine 0.75 0.72 Glucose 180 H 165 H Calcium 8.4 L 8.6 Liver Function 10/17/18 Range/Units 04:44 Total Bilirubin 0.3 (0.3-1.0) mg/dL AST 59 H (13-39) Units/L ALT 48 (7-52) Units/L Alkaline Phosphatase 52 (34-104) Units/L Albumin 2.4 L (3.5-5.7) g/dL - Impressions Impressions Chest X-Ray 10/17/18 05:00 IMPRESSION: Technically suboptimal exam without evidence of focal airspace consolidation. D/ / Go Villagomez / Go Villagomez Interpreting Provider: Go Villagomez Consult Discharge Plan - Plan Referrals: NONE,PCP [Primary Care Provider] - Palliative Quality Palliative Quality: Screen for Code Status: Yes, Screen for Goals of Care: Yes, Screen for Pain: Yes, If Pain Regimen Started, Initiate Bowel Regimen: NA, Screen for Nausea/Vomitting: Yes Code Status: 10/14/18 23:49 Resuscitation Status: Active [RES] Stat Comment: Resuscitation Status: DNR-Comfort Care-Arrest 10/17/18 12:28 DNR [Resuscitation Status: Active] [RES] Routine Comment: Resuscitation Status: DNR-Comfort Care
[2018-10-17] MEDS ORDERED: levETIRAcetam 500 MG/5 ML UDC GTUBE SCH (13:30)
[2018-10-17] MEDS ORDERED: *HR* LORazepam 1 MG TABLET GTUBE PRN ×2 (14:03→17:33)
[2018-10-17] MEDS ORDERED: Ipratropium/Albuterol Neb 3 ML IH PRN (17:33)
[2018-10-17] MEDS ORDERED: Pantoprazole 40 MG VIAL IVP SCH (18:00)
[2018-10-17] MEDS: levETIRAcetam 500 MG/5 ML UDC GTUBE SCH (21:17)
[2018-10-18] MEDS ORDERED: Atropine Sulfate 1% 40 DROP/2 ML BOTTLE SL PRN (08:44)
[2018-10-18] MEDS ORDERED: Ondansetron 4 MG/2 ML VIAL IVP PRN (08:44)
--- NOTE | 2018-10-18 08:48 | Internal Med Progress Note ---
Hospitalist Progress Note - Encounter Date of Encounter: 10/18/18 Time of Encounter: 08:30 - Subjective Interval History: Mr Proctor is currently admitted for sepsis related to UTI. He is now comfort care. He remains moderate risk today. Mr Proctor has been febrile overnight. He is less responsive this AM. Appears comfortable. - Exam Vitals: Temp Pulse Resp BP Pulse Ox 98.6 F 103 14 94/55 86 10/18/18 05:07 10/18/18 05:07 10/18/18 05:07 10/18/18 05:07 10/18/18 05:07 Exam: General: Arousable. Appears comfortable. Skin: Dry. No rash. H: Normocephalic. EENT: EOMI, Mucus membranes dry. Cardiovascular: Normal S1 & S2, no murmurs Pulse regular. Lungs: Normal breath sounds, very diminished. Abdomen: Soft, non-tender, Normal bowel sounds. Extremities: Contractures noted. Neurological: Arousable but not responsive. Pulses: radial pulses normal +2. Rest of the physical exam is non contributory - Assessment and Plan (1) Sepsis Current Visit: Yes Status: Acute Assessment and Plan: Enterococcus faecalis. Abx stopped. Pt now comfort care. (2) UTI (urinary tract infection) Current Visit: Yes Status: Acute Assessment and Plan: Present on admission Pt presented with sepsis due to UTI. Now comfort care. Abx have been stopped. (3) Diabetes mellitus, undetermined Current Visit: Yes Status: Chronic Assessment and Plan: Now comfort care. (4) Anemia Current Visit: Yes Status: Suspected Assessment and Plan: No further labs or work up ordered. (5) Severe protein-calorie malnutrition Current Visit: Yes Status: Chronic Assessment and Plan: Chronic issue - Time Spent with Patient Total time spent is greater than 50% in coordination of care (as documented) at patient's floor/unit and/or counseling patient: Internal Medicine: Result - Labs CBC & Chem 7: 10/17/18 04:44 10/17/18 04:44 Consult Discharge Plan - Plan Referrals: NONE,PCP [Primary Care Provider] - (1) Sepsis Qualifiers: Sepsis type: Streptococcus, other Sepsis acute organ dysfunction status: unspecified Qualified Code(s): A40.8 - Other streptococcal sepsis (2) UTI (urinary tract infection) Qualifiers: Urinary tract infection type: catheter-associated UTI Indwelling urinary catheter type: indwelling urethral catheter Encounter type: subsequent encounter Qualified Code(s): T83.511D - Infection and inflammatory reaction due to indwelling urethral catheter, subsequent encounter; N39.0 - Urinary tract infection, site not specified (3) Diabetes mellitus, undetermined Qualifiers: Diabetes mellitus type: type 2 Diabetes mellitus complication status: with hyperglycemia Qualified Code(s): E11.65 - Type 2 diabetes mellitus with hyperglycemia; Z79.4 - [facility] (current) use of insulin (4) Anemia Qualifiers: Anemia type: other cause Other causes of anemia: chronic disease, other Qualified Code(s): D63.8 - Anemia in other chronic diseases classified elsewhere
[2018-10-18] MEDS: levETIRAcetam 500 MG/5 ML UDC GTUBE SCH ×2 (09:53→20:04)
[2018-10-18] MEDS: Budesonide/Formoterol 160/4.5 1 PUFF INH IH SCH ×2 (10:10→20:13)
[2018-10-18] MEDS: Morphine Sulfate Oral CONC 10 MG/0.5 ML ORAL.SYG SL PRN ×2 (18:49→22:06)
[2018-10-19] MEDS: Morphine Sulfate Oral CONC 10 MG/0.5 ML ORAL.SYG SL PRN ×4 (01:35→18:11)
--- NOTE | 2018-10-19 08:56 | Internal Med Progress Note ---
Hospitalist Progress Note - Encounter Date of Encounter: 10/19/18 Time of Encounter: 08:40 - Subjective Interval History: Mr Proctor is currently admitted for sepsis related to UTI. He is now comfort care. Mr Proctor is resting now. He appears comfortable. Pain medication switched to sublingual yesterday and seems to help. No other acute issues. BP lower this AM. - Exam Vitals: Temp Pulse Resp BP Pulse Ox 97.5 F L 91 14 76/50 98 10/19/18 08:21 10/19/18 08:21 10/19/18 08:21 10/19/18 08:21 10/19/18 08:21 Exam: General: Appears comfortable. Less arousable today. Skin: Dry. No rash. Poor turgor. H: Normocephalic. EENT: EOMI, Mucus membranes dry. Cardiovascular: Normal S1 & S2, no murmurs Pulse regular. Heart distant. Lungs: Very diminished. Abdomen: Soft. Does not appear tender Extremities: Contractures noted. No edema. Neurological: Less arousable today. Pulses: Fainter today. Rest of the physical exam is non contributory - Assessment and Plan (1) Sepsis Current Visit: Yes Status: Acute Assessment and Plan: Enterococcus faecalis. BP continues to be low. All abx stopped on Saturday - pt comfort care. Anticipate d/c with Hospice on Saturday. (2) UTI (urinary tract infection) Current Visit: Yes Status: Acute Assessment and Plan: Present on admission Pt presented with sepsis due to UTI. Abx stopped on Saturday. Comfort care. (3) Diabetes mellitus, undetermined Current Visit: Yes Status: Chronic Assessment and Plan: Now comfort care. (4) Anemia Current Visit: Yes Status: Suspected Assessment and Plan: No further labs or work up ordered. Pt comfort care. (5) Severe protein-calorie malnutrition Current Visit: Yes Status: Chronic Assessment and Plan: Chronic issue - Time Spent with Patient Total time spent is greater than 50% in coordination of care (as documented) at patient's floor/unit and/or counseling patient: Internal Medicine: Result - Labs CBC & Chem 7: 10/17/18 04:44 10/17/18 04:44 Consult Discharge Plan - Plan Referrals: NONE,PCP [Primary Care Provider] - (1) Sepsis Qualifiers: Sepsis type: Streptococcus, other Sepsis acute organ dysfunction status: unspecified Qualified Code(s): A40.8 - Other streptococcal sepsis (2) UTI (urinary tract infection) Qualifiers: Urinary tract infection type: catheter-associated UTI Indwelling urinary catheter type: indwelling urethral catheter Encounter type: subsequent enco unter Qualified Code(s): T83.511D - Infection and inflammatory reaction due to indwelling urethral catheter, subsequent encounter; N39.0 - Urinary tract infection, site not specified (3) Diabetes mellitus, undetermined Qualifiers: Diabetes mellitus type: type 2 Diabetes mellitus complication status: with hyperglycemia Qualified Code(s): E11.65 - Type 2 diabetes mellitus with hyperglycemia; Z79.4 - residential (current) use of insulin (4) Anemia Qualifiers: Anemia type: other cause Other causes of anemia: chronic disease, other Qualified Code(s): D63.8 - Anemia in other chronic diseases classified elsewhere
[2018-10-19] MEDS: levETIRAcetam 500 MG/5 ML UDC GTUBE SCH ×2 (10:55→19:56)
[2018-10-19] MEDS: Budesonide/Formoterol 160/4.5 1 PUFF INH IH SCH ×2 (11:40→19:39)
[2018-10-20] MEDS: levETIRAcetam 500 MG/5 ML UDC GTUBE SCH (07:38)
[2018-10-20] MEDS: Morphine Sulfate Oral CONC 10 MG/0.5 ML ORAL.SYG SL PRN ×2 (07:38→11:50)
[2018-10-20] MEDS: Budesonide/Formoterol 160/4.5 1 PUFF INH IH SCH ×2 (07:53→20:07)
--- NOTE | 2018-10-20 09:29 | Palliative Progress Note ---
Date of Encounter: 10/20/18 Time of Encounter: 09:00 - Assessment and plan (1) Generalized pain Current Visit: Yes Status: Acute Assessment and plan: Continue current Roxanol - he appears comfortable. However, will schedule every 6 hours when discharges to [facility] to ensure he does receive some intermitted pain medication as this is very important to family. (2) Anxiety Current Visit: Yes Status: Acute Assessment and plan: Continue Lorazepam per PEG PRN for restlessness. (3) Goals of care, counseling/discussion Current Visit: No Status: Acute Assessment and plan: Patient will be transferred back to [place] today with [facility]. I spoke with patient's son Mauro, and he will come to [place] later this afternoon and meet hospice at the [facility] to get patient enrolled. Prescriptions completed for Roxanol and Lorazepam and will be sent with patient. (4) Palliative care encounter Current Visit: No Status: Acute (5) Hypotension Current Visit: Yes Status: Acute Qualifiers: Hypotension type: other hypotension type Qualified Code(s): I95.89 - Other hypotension (6) Sepsis Current Visit: Yes Status: Acute Qualifiers: Sepsis type: Streptococcus, other Sepsis acute organ dysfunction status: unspecified Qualified Code(s): A40.8 - Other streptococcal sepsis - Time Spent With Patient Total time spent is greater than 50% in coordination of care (as documented) at patient's floor/unit and/or counseling patient: - Subjective Interval history: Patient resting quietly. Will open eyes and respond to name. Appears in no distress, deep easy respirations. Has had intermittent fevers over the weekend and 100.7 this am. No family present - Constitutional Vitals: Abnormal lab results RBC 2.58 M/mcL (4.19-5.50) L 10/17/18 04:44 Hgb 6.7 g/dL (12.9-16.9) L 10/17/18 04:44 Hct 21.8 % (37.5-50.1) L 10/17/18 04:44 MCH 26.0 pg (28.0-33.3) L 10/17/18 04:44 MCHC 30.7 g/dL (31.6-35.5) L 10/17/18 04:44 RDW 15.1 % (11.5-14.5) H 10/17/18 04:44 VBG pH 7.43 pH Units (7.32-7.42) H 10/14/18 22:42 VBG pCO2 33 mmHg (41-51) L 10/14/18 22:42 VBG pO2 87 mmHg (25-50) H 10/14/18 22:42 Sodium 147 mEq/L (136-145) H 10/17/18 04:44 Potassium 5.5 mEq/L (3.5-5.1) H 10/14/18 22:25 Chloride 116 mEq/L (98-107) H 10/17/18 04:44 Carbon Dioxide 22 mEq/L (23-29) L 10/17/18 04:44 BUN 30 mg/dL (8-23) H 10/17/18 04:44 BUN/Creatinine Ratio 42 (6-26) H 10/17/18 04:44 Glucose 165 mg/dL (70-105) H 10/17/18 04:44 POC Glucose 159 mg/dL (70-99) H 10/17/18 12:08 Calculated Osmolality 314 (280-300) H 10/17/18 04:44 Lactic Acid 2.7 mmol/L (0.5-2.2) H 10/16/18 14:48 Calcium 8.4 mg/dL (8.6-10.3) L 10/16/18 14:48 Magnesium 2.8 mg/dL (1.6-2.6) H 10/14/18 22:25 AST 59 Units/L (13-39) H 10/17/18 04:44 ALT 57 Units/L (7-52) H 10/15/18 09:30 Serum Total Protein 5.8 g/dL (6.4-8.9) L 10/17/18 04:44 Albumin 2.4 g/dL (3.5-5.7) L 10/17/18 04:44 Globulin 4.0 g/dL (2.4-3.5) H 10/15/18 09:30 Albumin/Globulin Ratio 0.7 (1.1-2.2) L 10/17/18 04:44 Beta-Hydroxybutyric Acd 0.32 mmol/L (0.02-0.27) H 10/14/18 22:25 Procalcitonin 0.88 ng/mL (0.00-0.15) H 10/16/18 18:19 Urine Clarity Turbid (Clear) A 10/14/18 22:18 Urine Protein 30 mg/dL (Neg-Trace) H 10/14/18 22:18 Urine Blood Moderate (Negative) H 10/14/18 22:18 Ur Leukocyte Esterase Large (Negative) H 10/14/18 22:18 Urine Microscopic WBC TNTC per hpf (0-3) H 10/14/18 22:18 Ur Squamous Epith Cells Many per lpf (None-Few) H 10/14/18 22:18 Urine Bacteria Many per hpf (None-Few) H 10/14/18 22:18 Ur Culture Indicated? YES (NO) A 10/14/18 22:18 Nasal Screen MRSA (PCR) DETECTED (Not Detect) A 10/15/18 12:19 Crossmatch See Detail 10/15/18 01:06 General appearance: Present: no acute distress - Respiratory Respiratory exam: Present: decreased breath sounds, CTAB - Cardiovascular Cardiovascular exam: Present: +S1, +S2, tachycardia - GI/Abdominal GI/Abdominal exam: Present: normal bowel sounds, soft Additional comments: PEG clamped. Rectal tube remains in place with liquid green stool - Additional comments: Lamb with cloudy yellow urine - Extremities Exam Additional comments: extremities contracted - Neurological Exam Additional comments: Will open eyes, did whisper his name for me. No other verbal response. - Skin Skin exam: Present: dry, warm Palliative Quality Palliative Quality: Screen for Code Status: Yes, Screen for Goals of Care: Yes, Screen for Pain: Yes, If Pain Regimen Started, Initiate Bowel Regimen: NA, Screen for Nausea/Vomitting: Yes Code Status: 10/14/18 23:49 Resuscitation Status: Active [RES] Stat Comment: Resuscitation Status: DNR-Comfort Care-Arrest 10/17/18 12:28 DNR [Resuscitation Status: Active] [RES] Routine Comment: Resuscitation Status: DNR-Comfort Care - Labs CBC & Chem 7: 10/17/18 04:44 10/17/18 04:44 Consult Discharge Plan - Plan Referrals: NONE,PCP [Primary Care Provider] - Prescriptions: LORazepam [Ativan] 1 mg GTUBE Q4HR PRN 14 Days #30 tablet PRN Reason: anxiety/restlessness Morphine Sulfate Oral CONC [Roxanol Oral Conc] 10 mg PO Q3H PRN 14 Days #30 oral.syg PRN Reason: pain/dyspnea Morphine Sulfate Oral CONC [Roxanol Oral Conc] 10 mg PO Q6H 14 Days #30 oral.syg
--- NOTE | 2018-10-20 10:36 | Discharge Summary ---
<Harmeet Bell - Last Filed: 10/20/18 13:35> Orders not resulted at time of discharge: Pending orders 10/14/18 22:18 Culture,Urine [RM] Stat 10/16/18 18:16 Culture,Blood [BC] Stat 10/17/18 11:32 Culture,Urine [RM] Stat Date of Encounter: 10/20/18 - Discharge Diagnosis (1) Sepsis Status: Acute Qualifiers: Sepsis type: Streptococcus, other Sepsis acute organ dysfunction status: unspecified Qualified Code(s): A40.8 - Other streptococcal sepsis (2) UTI (urinary tract infection) Status: Acute Qualifiers: Urinary tract infection type: catheter-associated UTI Indwelling urinary catheter type: indwelling urethral catheter Encounter type: subsequent encounter Qualified Code(s): T83.511D - Infection and inflammatory reaction due to indwelling urethral catheter, subsequent encounter; N39.0 - Urinary tract infection, site not specified (3) Diabetes mellitus, undetermined Status: Chronic Qualifiers: Diabetes mellitus type: type 2 Diabetes mellitus complication status: with hyperglycemia Qualified Code(s): E11.65 - Type 2 diabetes mellitus with hyperglycemia; Z79.4 - correction (current) use of insulin (4) Anemia Status: Suspected Qualifiers: Anemia type: other cause Other causes of anemia: chronic disease, other Qualified Code(s): D63.8 - Anemia in other chronic diseases classified elsewhere (5) Severe protein-calorie malnutrition Status: Chronic Hospital course: Mr. Proctor is a 62 year old male - Time Spent with Patient Total time spent providing and/or coordinating discharge services: - Discharge Medications Prescriptions: New LORazepam [Ativan] 1 mg GTUBE Q4HR PRN 14 Days #30 tablet PRN Reason: anxiety/restlessness Morphine Sulfate Oral CONC [Roxanol Oral Conc] 10 mg PO Q6H 14 Days #30 oral.syg Morphine Sulfate Oral CONC [Roxanol Oral Conc] 10 mg PO Q3H PRN 14 Days #30 oral.syg PRN Reason: pain/dyspnea Continued Acetaminophen [Tylenol 650mg SUPP] 650 mg RC Q4H PRN MDD 3GM PRN Reason: Fever Ciprofloxacin [Cipro] 500 mg GTUBE Q12H Dextrose [Glucose Gel] 15 gm GTUBE Q4H PRN PRN Reason: DM Ferrous Sulfate 325 mg GTUBE BIDWM Folic Acid 1 mg GTUBE DAILY Glucagon,Human Recombinant [Glucagon Emergency Kit] 1 mg IM PRN PRN PRN Reason: Hypoglycemia Heparin Sodium,Porcine [Heparin Sodium] 5,000 units SQ BID Lactobacillus Combination No.8 [Adult Probiotic] 1 cap GTUBE DAILY LevETIRAcetam [Keppra] 500 mg GTUBE BID LORazepam [Ativan] 1 mg GTUBE Q12H PRN PRN Reason: Anxiety Magnesium Oxide [Magnesium] 800 mg GTUBE BID Melatonin [Melatin] 6 mg PO HS Metformin HCl 500 mg GTUBE BID Multivitamin [Daily Multiple Vitamin] 1 tab GTUBE DAILY Nicotine Patch [Nicoderm] 14 mg TD DAILY Pantoprazole Sodium [Protonix] 40 mg GTUBE DAILY Sodium Chloride [Sodium Chloride Tab] 1 gm GTUBE TID Sucralfate [Carafate] 1 gm GTUBE TID Thiamine HCl [Vitamin B-1] 100 mg GTUBE DAILY Trazodone HCl 50 mg PO HS PRN PRN Reason: Insomnia Wheat Dextrin [Benefiber] 8.4 gm GTUBE TID Home Medications: Acetaminophen [Tylenol 650mg SUPP] 650 mg RC Q4H PRN MDD 3GM 10/15/18 [History] Ciprofloxacin [Cipro] 500 mg GTUBE Q12H 10/15/18 [History] Dextrose [Glucose Gel] 15 gm GTUBE Q4H PRN 10/15/18 [History] Ferrous Sulfate 325 mg GTUBE BIDWM 10/15/18 [History] Folic Acid 1 mg GTUBE DAILY 10/15/18 [History] Glucagon,Human Recombinant [Glucagon Emergency Kit] 1 mg IM PRN PRN 10/15/18 [History] Heparin Sodium,Porcine [Heparin Sodium] 5,000 units SQ BID 10/15/18 [History] LORazepam [Ativan] 1 mg GTUBE Q12H PRN 10/15/18 [History] Lactobacillus Combination No.8 [Adult Probiotic] 1 cap GTUBE DAILY 10/15/18 [History] LevETIRAcetam [Keppra] 500 mg GTUBE BID 10/15/18 [History] Magnesium Oxide [Magnesium] 800 mg GTUBE BID 10/15/18 [History] Melatonin [Melatin] 6 mg PO HS 10/15/18 [History] Metformin HCl 500 mg GTUBE BID 10/15/18 [History] Multivitamin [Daily Multiple Vitamin] 1 tab GTUBE DAILY 10/15/18 [History] Nicotine Patch [Nicoderm] 14 mg TD DAILY 10/15/18 [History] Pantoprazole Sodium [Protonix] 40 mg GTUBE DAILY 10/15/18 [History] Sodium Chloride [Sodium Chloride Tab] 1 gm GTUBE TID 10/15/18 [History] Sucralfate [Carafate] 1 gm GTUBE TID 10/15/18 [History] Thiamine HCl [Vitamin B-1] 100 mg GTUBE DAILY 10/15/18 [History] Trazodone HCl 50 mg PO HS PRN 10/15/18 [History] Wheat Dextrin [Benefiber] 8.4 gm GTUBE TID 10/15/18 [History] LORazepam [Ativan] 1 mg GTUBE Q4HR PRN 14 Days #30 tablet 10/20/18 [Rx] Morphine Sulfate Oral CONC [Roxanol Oral Conc] 10 mg PO Q3H PRN 14 Days #30 oral.syg 10/20/18 [Rx] Morphine Sulfate Oral CONC [Roxanol Oral Conc] 10 mg PO Q6H 14 Days #30 oral.syg 10/20/18 [Rx] Allergies/Adverse Reactions: Allergy/AdvReac Type Severity Reaction Status Date / Time No Known Allergies Allergy Verified 10/15/18 12:33 Date of admission: 10/15/18 14:44 Primary care physician: PCP NONE Consults: 10/15/18 13:01 Consult to Nutrition [CONS] Stat Comment: Consulting Provider: NUTRITION Reason for Dietary Consult: Tube Feed Start & Manage 10/17/18 09:01 Consult to Invasive Line Access Team [CONS] Routine Reason for Consult: Limited access Line Type: EPIV 10/17/18 09:08 Consult to Infectious Diseases [CONS] Routine Consulting Provider: [facility] [place] Reason for Consult: UTI, sepsis, hx of multidrug resistant organisms Call Completed: Yes 10/17/18 09:15 Consult to Palliative Care [CONS] Routine Comment: Consulting Provider: [facility] [place] Reason for Consult: DNR CCA, sepsis 2/2 UTI, poor response to treatment Call Completed: Yes 10/17/18 09:51 Consult to Gastroenterology [CONS] Routine Consulting Provider: Gastroenterology [place] Reason for Consult: possible GI bleed Call Completed: Yes 10/17/18 11:39 Consult to Wound Care [CONS] Routine Reason for Consult: buttock ulcers, possible shearing injury Call Completed: No 10/20/18 09:21 Consult to Controller Repairer And Tester [CONS] Routine Reason for SW Consult: rtn wmp - Constitutional Vitals: Temp Pulse Resp BP Pulse Ox 98.6 F 98 22 90/51 89 10/20/18 11:40 10/20/18 11:40 10/20/18 11:40 10/20/18 11:40 10/20/18 11:40 - Patient Status Disposition: Hospice - Medical Facility Condition: Fair - Discharge Instructions Follow Up With: NONE,PCP [Primary Care Provider] - Forms: ED Satisfaction Letter, Work/School Release Additional Instructions: The patient was admitted for sepsis secondary to UTI, anemia, low blood pressure, kidney injury, and hyperkalemia. He was initially treated with antibiotics, blood transfusion, IV fluids. However, after a goals of care discussion with the patient's son, the patient was then put on comfort care. To be discharged to hospice. Currently, the patient is stable. There is no further treatment required regarding antibiotics, fluid resuscitation, or further laboratory testing. Please continue on home medications as prescribed. Please follow up with primary care provider and palliative care for further management. - Attending Attestation I examined this patient and my medical decision-making was reviewed with the Resident Physician on 10/20/18. I agree with the documented findings, disposition and treatment plan as described except to the extent set forth below. Mr Proctor has been admitted for sepsis related to UTI. He continued to decline despite treatment. He was seen by palliative care and made comfort care. He was transferred out of ICU. He is going to be discharged with hospice. Exam: [place]. Appears comfortable. Heart not tachy. Plan: D/C to ECF with hospice. D/C time 36min <Jorge Jacobo F - Last Filed: 10/20/18 14:16> - NOTES TO OUTPATIENT PROVIDER Notes to Outpatient Provider: Notes to hospice care: Patient was originally admitted for sepsis/shock secondary to UTI, APRIL, hyperkalemia, elevated blood glucose. Patient was treated with a course of vancomycin, Zosyn and then transition to meropenem. Patient was also persistently hypotensive with a MAP in the 50 to 60s. He was given blood products and fluids. A preliminary urine culture has shown growth of enterococcus faecalis. Other blood cultures pending. At this point a palliative consult and goals of care discussion was had with the patient's son. It was determined that the patient should be transition to comfort care only. Blood products, fluids, antibiotics, further laboratory and imaging testing was suspended. Since then, the patient has been stable. He is to continue on his home medications. Palliative is following. He will be transferred to hospice care for further management. Orders not resulted at time of discharge: Pending orders 10/14/18 22:18 Culture,Urine [RM] Stat 10/16/18 18:16 Culture,Blood [BC] Stat 10/17/18 11:32 Culture,Urine [RM] Stat Date of Encounter: 10/20/18 Time of Encounter: 10:36 - Discharge Diagnosis (1) Sepsis Priority: Primary Status: Acute Qualifiers: Sepsis type: sepsis due to unspecified organism Qualified Code(s): A41.9 - Sepsis, unspecified organism (2) UTI (urinary tract infection) Priority: Secondary Status: Acute Qualifiers: Urinary tract infection type: catheter-associated UTI Indwelling urinary catheter type: indwelling urethral catheter Encounter type: subsequent encou nter Qualified Code(s): T83.511D - Infection and inflammatory reaction due to indwelling urethral catheter, subsequent encounter; N39.0 - Urinary tract infection, site not specified (3) Hyperkalemia Priority: Secondary Status: Acute (4) Uncontrolled diabetes mellitus Priority: Secondary Status: Acute Qualifiers: Diabetes mellitus type: type 2 Glycemic state: with hyperglycemia Qualified Code(s): E11.65 - Type 2 diabetes mellitus with hyperglycemia (5) Anemia Priority: Secondary Status: Acute Qualifiers: (6) Severe protein-calorie malnutrition Priority: Secondary Status: Chronic (7) DVT prophylaxis Priority: Secondary Status: Acute (8) Ulcers of both lower extremities Priority: Secondary Status: Acute Hospital course: Mr. Proctor is a 62 year old male with a PMH of anoxic brain injury (nonverbal at baseline), arthritis, diabetes, GERD, HLD, seizure disorder, HTN, hepatitis, and osteoporosis who presented to [facility] ED on 10/15/18 from an extended care facility due to abnormal labs. Labs demonstrated elevated glucose, potassium, BUN, and creatinine. He appeared to be dehydrated on exam. He was not able to provide any history. He has a Lamb catheter, and his Lamb bag appeared cloudy. Upon arrival, vital signs demonstrated an elevated temperature 99.1, an elevated heart rate at 104, a low blood pressure 91/61. Labs showed an elevated potassium of 5.5, elevated glucose of 437, a low hemoglobin 7.2, and elevated hydroxybutyric acid of 0.32. VBG demonstrated pH 7.43, CO2 33, O2 87, and bicarbonate 22. Urinalysis showed turbid urine, moderate amount of blood, large amount of leukocyte esterase, TNTC white blood cells, and many urine bacteria. Patient received 10 units of IV insulin, 10 mg of albuterol, and 1 g of calcium gluconate for hyperkalemia. He also received 2 L of normal saline, and a dose of Rocephin. A unit of packed red blood cells was ordered, and blood cultures 2 were ordered. During my interview, patient was nonverbal. He did respond to verbal stimuli by looking in my direction, but otherwise did not answer any questions or follow commands. He does not appear to be in any visible distress at this time. His blood pressure has improved after administration of IV fluids. Per chart review, patient appears to have chronic anemia at baseline. Plan is to admit to the hospitalist service for hypotension secondary to dehydration and possible sepsis. Potential infections versus include generic tract infection and infection of G-tube. Of note, lactate is within normal limits. We will continue Rocephin 1 g daily and aggressive fluid support. Will tailor antib iotic therapy accordingly. Due to patient's elevated blood glucose, we will start sliding scale insulin and check glucose levels every 4 hours. Potassium will be reassessed, and we will trend H&H after transfusion is complete. Patient was then transition from Rocephin to vancomycin and Zosyn based on previous sensitivities and risk factors. Zosyn was discontinued and then meropenem was used based on history of ESBL. Blood and urine cultures are pending. Patient also had severe protein calorie malnutrition and tube feeds were continued. MRSA nares was positive. Patient received 3 units of packed red blood cells total due to anemia. GI was consult of suspicion for GI bleed. Infectious disease was also consulted for further management of UTI and history of multidrug resistant organic organisms. During this time, patient was having consistently low systolic blood pressures in the 80s to 90s. Mean arterial pressure in the 50 to 60s. He required continuous maintenance fluids and blood transfusions to maintain pressures. Central venous access and pressors were discussed however were likely not in the best interest of this patient. Palliative care was counseled and a goals of care discussion was had with the patient's son. Family elected to transition to comfort care. Antibiotics, fluids, blood products, laboratory testing, further imaging were discontinued. Ongoing GI, infectious disease, other consults were discontinued. And patient was transitioned to palliative and comfort care. At discharge patient is hemodynamically stable. Will be discharged to hospice care. Discharge discussed with: patient, family, nurse, enterprise resource planning consultant - Time Spent with Patient Total time spent providing and/or coordinating discharge services: Time spent: Less than 30 minutes Date of admission: 10/15/18 14:44 Primary care physician: PCP NONE Consults: 10/15/18 13:01 Consult to Nutrition [CONS] Stat Comment: Consulting Provider: NUTRITION Reason for Dietary Consult: Tube Feed Start & Manage 10/17/18 09:01 Consult to Invasive Line Access Team [CONS] Routine Reason for Consult: Limited access Line Type: EPIV 10/17/18 09:08 Consult to Infectious Diseases [CONS] Routine Consulting Provider: [facility] [place] Reason for Consult: UTI, sepsis, hx of multidrug resistant organisms Call Completed: Yes 10/17/18 09:15 Consult to Palliative Care [CONS] Routine Comment: Consulting Provider: Palliative Care [facility] Reason for Consult: DNR CCA, sepsis 2/2 UTI, poor response to treatment Call Completed: Yes 10/17/18 09:51 Consult to Gastroenterology [CONS] Routine Consulting Provider: Gastroenter[facility] [place] Reason for Consult: possible GI bleed Call Completed: Yes 10/17/18 11:39 Consult to Wound Care [CONS] Routine Reason for Consult: buttock ulcers, possible shearing injury Call Completed: No 10/20/18 09:21 Consult to Controller Repairer And Tester [CONS] Routine Reason for SW Consult: rtn wmp 10/20/18 09:53 Consult to Occupational Therapy [CONS] Stat Comment: Evaluate, develop and implement POC Reason for Consult: eval for pre-cert yesica to facility with hospice Does patient have active BEDREST order?: No Is patient medically & hemodynamically stable?: Yes Patient assessed for mobility or mobilized this visit?: Yes Consult to Physical Therapy [CONS] Stat Comment: Evaluate, develop and implement POC Reason for Consult: eval for pre-cert yes[facility] to facility with hospice Does patient have active BEDREST order?: No Is patient medically & hemodynamically stable?: Yes Patient assessed for mobility or mobilized this visit?: Yes Discharging clinician: Jorge Jacobo Anticipated date of discharge: 10/20/18 - Constitutional Vitals: Temp Pulse Resp BP Pulse Ox 100.7 F H 91 16 97/50 95 10/20/18 07:30 10/20/18 07:30 10/20/18 07:30 10/20/18 07:30 10/20/18 07:30 Exam: GEN: Nonverbal, making eye contact, at mental baseline. HEAD: Normocephalic, atraumatic. EYES: PERRL, EOMI, anicteric. ENT: MMM. oropharynx without erythema or drainage. NECK: Supple. No LAD. No stiffness or restricted ROM. No tracheal deviation. HEART: Regular rate and regular rhythm, normal S1/S2, no m/r/g. LUNGS: CTAB, good air exchange bilaterally. No wheezing, rubs, or rhonchi. ABDO: Soft, nontender, nondistended with active bowel sounds. : No suprapubic tenderness or CVA tenderness. BACK: No obvious stepoffs or deformities. EXT: Without cyanosis, clubbing or edema. SKIN: Warm and dry without any rash. NEURO: Grossly nonfocal. Alert and oriented, moving all 4 extremities. CN not formally tested but appear grossly intact. PSYCH: Unable to assess. - Patient Status Functional capacity at discharge: bed bound Overall status at discharge: patient is back to baseline - Diet and Activity Activity: as per physical therapy, increase activity as tolerated, resume usual activities as tolerated, wear oxygen at all times, other (Patient is bedbound. Activity/therapy as tolerated.) Diet: advance to your usual diet, other (Patient on tube feeds.)
[2018-10-20 11:48] VITALS: BP 90/51
--- NOTE | 2018-10-20 16:08 | Physician Discharge Referral ---
ExtendedCare Referral Info Provider in Charge: Harmete Bell Provider in Charge after Transfer: PCP, Dental Appliance Fixer Institutional Level of Care: Skilled - Diagnosis (1) Sepsis Priority: Primary Status: Acute (2) UTI (urinary tract infection) Priority: Secondary Status: Acute (3) Hyperkalemia Priority: Secondary Status: Acute (4) Uncontrolled diabetes mellitus Priority: Secondary Status: Acute (5) Anemia Priority: Secondary Status: Acute (6) Severe protein-calorie malnutrition Priority: Secondary Status: Chronic (7) DVT prophylaxis Priority: Secondary Status: Acute (8) Ulcers of both lower extremities Priority: Secondary Status: Acute Prognosis: Fair Aware of Diagnosis: Patient, Family Aware of Prognosis: Patient, Family - Transfer Medications Prescriptions: LORazepam [Ativan] 1 mg GTUBE Q4HR PRN 14 Days #30 tablet PRN Reason: anxiety/restlessness Morphine Sulfate Oral CONC [Roxanol Oral Conc] 10 mg PO Q3H PRN 14 Days #30 oral.syg PRN Reason: pain/dyspnea Morphine Sulfate Oral CONC [Roxanol Oral Conc] 10 mg PO Q6H 14 Days #30 oral.syg Home Medications: Acetaminophen [Tylenol 650mg SUPP] 650 mg RC Q4H PRN MDD 3GM 10/15/18 [History] Ciprofloxacin [Cipro] 500 mg GTUBE Q12H 10/15/18 [History] Dextrose [Glucose Gel] 15 gm GTUBE Q4H PRN 10/15/18 [History] Ferrous Sulfate 325 mg GTUBE BIDWM 10/15/18 [History] Folic Acid 1 mg GTUBE DAILY 10/15/18 [History] Glucagon,Human Recombinant [Glucagon Emergency Kit] 1 mg IM PRN PRN 10/15/18 [History] Heparin Sodium,Porcine [Heparin Sodium] 5,000 units SQ BID 10/15/18 [History] LORazepam [Ativan] 1 mg GTUBE Q12H PRN 10/15/18 [History] Lactobacillus Combination No.8 [Adult Probiotic] 1 cap GTUBE DAILY 10/15/18 [History] LevETIRAcetam [Keppra] 500 mg GTUBE BID 10/15/18 [History] Magnesium Oxide [Magnesium] 800 mg GTUBE BID 10/15/18 [History] Melatonin [Melatin] 6 mg PO HS 10/15/18 [History] Metformin HCl 500 mg GTUBE BID 10/15/18 [History] Multivitamin [Daily Multiple Vitamin] 1 tab GTUBE DAILY 10/15/18 [History] Nicotine Patch [Nicoderm] 14 mg TD DAILY 10/15/18 [History] Pantoprazole Sodium [Protonix] 40 mg GTUBE DAILY 10/15/18 [History] Sodium Chloride [Sodium Chloride Tab] 1 gm GTUBE TID 10/15/18 [History] Sucralfate [Carafate] 1 gm GTUBE TID 10/15/18 [History] Thiamine HCl [Vitamin B-1] 100 mg GTUBE DAILY 10/15/18 [History] Trazodone HCl 50 mg PO HS PRN 10/15/18 [History] Wheat Dextrin [Benefiber] 8.4 gm GTUBE TID 10/15/18 [History] LORazepam [Ativan] 1 mg GTUBE Q4HR PRN 14 Days #30 tablet 10/20/18 [Rx] Morphine Sulfate Oral CONC [Roxanol Oral Conc] 10 mg PO Q3H PRN 14 Days #30 oral.syg 10/20/18 [Rx] Morphine Sulfate Oral CONC [Roxanol Oral Conc] 10 mg PO Q6H 14 Days #30 oral.syg 10/20/18 [Rx] Allergies/Adverse Reactions: Allergy/AdvReac Type Severity Reaction Status Date / Time No Known Allergies Allergy Verified 10/15/18 12:33 - Respiratory Orders Oxygen / L per min (2L) Smoking Cessation: Smoking cessation has been advised. For more information, call the [place] Tobacco Quit Line at 5-226-XGII-NOW. - Advance Directives Living Will: Yes Power of Termite Exterminator Helper for Health Care: Yes Code Status: DNR-Comfort Care - History and Physical History/Physical reviewed & approved w/add comments: YES - Mobility Orders Bedrest - Rehabiliation Orders Rehab Potential: Fair - Diet Orders Tube Feedings (type/amount/rate): As per nutrition recs CERTIFICATION: I certify that the transfer of the above named patient to an Extended Care Facility is necessary for the continuing treatment of the diagnosis listed. The above information is true and accurate reflection of patient's current condition. Confidential - Redisclosure prohibited without a patient's written consent.
--- NOTE | 2018-10-20 17:33 | Death Note ---
Discharge Sum: Summary - Date and Time Date of admission: 10/15/18 14:44 Date of : 10/20/18 Time of : 17:20 - Summary Details: Mr. Proctor is a 62 year old male with a PMH of anoxic brain injury (nonverbal at baseline), arthritis, diabetes, GERD, HLD, seizure disorder, HTN, hepatitis, and osteoporosis who presented to [facility] on 10/15/18 from an extended care facility due to abnormal labs. Labs demonstrated elevated glucose, potassium, BUN, and creatinine. He appeared to be dehydrated on exam. He was not able to provide any history. He has a Lamb catheter, and his Lamb bag appeared cloudy. Upon arrival, vital signs demonstrated an elevated temperature 99.1, an elevated heart rate at 104, a low blood pressure 91/61. Labs showed an elevated potassium of 5.5, elevated glucose of 437, a low hemoglobin 7.2, and elevated hydroxybutyric acid of 0.32. VBG demonstrated pH 7.43, CO2 33, O2 87, and bicarbonate 22. Urinalysis showed turbid urine, moderate amount of blood, large amount of leukocyte esterase, TNTC white blood cells, and many urine bacteria. Patient received 10 units of IV insulin, 10 mg of albuterol, and 1 g of calcium gluconate for hyperkalemia. He also received 2 L of normal saline, and a dose of Rocephin. A unit of packed red blood cells was ordered, and blood cultures 2 were ordered. During my interview, patient was nonverbal. He did respond to verbal stimuli by looking in my direction, but otherwise did not answer any questions or follow commands. He does not appear to be in any visible distress at this time. His blood pressure has improved after administration of IV fluids. Per chart review, patient appears to have chronic anemia at baseline. Plan is to admit to the hospitalist service for hypotension secondary to dehydration and possible sepsis. Potential infections versus include generic tract infection and infection of G-tube. Of note, lactate is within normal limits. We will continue Rocephin 1 g daily and aggressive fluid support. Will tailor antibiotic therapy accordingly. Due to patient's elevated blood glucose, we will start sliding scale insulin and check glucose levels every 4 hours. Potassium will be reassessed, and we will trend H&H after transfusion is complete. Patient was then transition from Rocephin to vancomycin and Zosyn based on previous sensitivities and risk factors. Zosyn was discontinued and then chandana openem was used based on history of ESBL. Blood and urine cultures are pending. Patient also had severe protein calorie malnutrition and tube feeds were continued. MRSA nares was positive. Patient received 3 units of packed red blood cells total due to anemia. GI was consult of suspicion for GI bleed. Infectious disease was also consulted for further management of UTI and history of multidrug resistant organic organisms. During this time, patient was having consistently low systolic blood pressures in the 80s to 90s. Mean arterial pressure in the 50 to 60s. He required continuous maintenance fluids and blood transfusions to maintain pressures. Central venous access and pressors were discussed however were likely not in the best interest of this patient. Palliative care was counseled and a goals of care discussion was had with the patient's son. Family elected to transition to comfort care. Antibiotics, fluids, blood products, laboratory testing, further imaging were discontinued. Ongoing GI, infectious disease, other consults were discontinued. And patient was transitioned to palliative and comfort care. He comfortably today. - Additional Data Confirmation of as documented by pronouncing clinician: no pulse, no respirations Family: contacted Attending/PCP notified?: Yes Attending physician: Harmeet Bell, DO Was code activated?: No Autopsy requested?: No car examiner notified?: No Organ bank notified?: No Advance directives: Yes Hospice patient?: No Discharge Sum: Diag - PCOD Probable Cause of : Sepsis Discharge Sum: Prov - Provider Primary care physician: PCP NONE Admitting clinician: Harmeet Bell Consults: 10/15/18 13:01 Consult to Nutrition [CONS] Stat Comment: Consulting Provider: NUTRITION Reason for Dietary Consult: Tube Feed Start & Manage 10/17/18 09:01 Consult to Invasive Line Access Team [CONS] Routine Reason for Consult: Limited access Line Type: EPIV 10/17/18 09:08 Consult to Infectious Diseases [CONS] Routine Consulting Provider: Infectious Disease [place] Reason for Consult: UTI, sepsis, hx of multidrug resistant organisms Call Completed: Yes 10/17/18 09:15 Consult to Palliative Care [CONS] Routine Comment: Consulting Provider: Palliative Care [place] Reason for Consult: DNR CCA, sepsis 2/2 UTI, poor response to treatment Call Completed: Yes 10/17/18 09:51 Consult to Gastroenterology [CONS] Routine Consulting Provider: Gastroenterology Margo Reason for Consult: possible GI bleed Call Completed: Yes 10/17/18 11:39 Consult to Wound Care [CONS] Routine Reason for Consult: buttock ulcers, possible shearing injury Call Completed: No 10/20/18 09:21 Consult to Chief Deputy Clerk/Bailiff [CONS] Routine Reason for SW Consult: rtn wmp Pronouncing clinician: Harmeet Bell
== END 2018-10-20 22:00 | disposition expired | DRG 466 ==
LOC: ICNU 21:47 → EMEROOARM 21:47 → SUATTDRO 10-15 06:07 → ICNU 10-15 08:02 → 2ANU 10-17 20:08
PROVIDERS: ADMIT Internal Medicine; ATTEND Internal Medicine